=== PATIENT | female | born 1935 | race Caucasian/White ===

== ENCOUNTER → 2016-02-28 | Outpatient (CLI) | payer MEDICARE, MEDICAID ==
[~2016-02-28] MED LIST: ACYC800T PO; ALBUAER3 INH; AZIT250T3 PO; CALCTAB80 PO; CLOP75 PO; CYCL5TAB PO; ESTR42.5V PV; FERR325T PO; GABA300C5 PO; METO50TA11 PO; NORV5TAB PO; OMEP10CA PO; PANT40TA3 PO; PERI8.6T PO; PRED20 PO; PREV30CA36 PO; PROC2.5C PR; ROSU40 PO; SYMB160A INH; VENTAER INH
[2016-02-28 10:32] LABS: BASOPHIL % 0.6 % (0.0-2.0); EOSINOPHIL # 0.6 TH/MM3 (0-0.4); EOSINOPHIL % 8.2 % (0.0-4.0); HEMATOCRIT 30.6 % (35.0-46.0); HEMO FLAGS DIFF FINAL; LYMPH % 22.5 % (9.0-44.0); LYMPHOCYTE # 1.6 TH/MM3 (1.0-4.8); MEAN CELL VOLUME 93.3 FL (80.0-100.0); MEAN CORPUSCULAR HEMOGLOBIN 31.3 PG (27.0-34.0); MEAN CORPUSCULAR HGB CONC 33.5 % (32.0-36.0); MONO % 12.6 % (0.0-8.0); NEUT % 56.1 % (16.0-70.0); PLATELET COUNT 191 TH/MM3 (150-450); RED BLOOD COUNT 3.28 MIL/MM3 (4.00-5.30); RED CELL DISTRIBUTION WIDTH 15.2 % (11.6-17.2); WHITE BLOOD COUNT 7.2 TH/MM3 (4.0-11.0)
[2016-02-28 10:46] LABS: ALT (GPT) 21 U/L (10-53); ANION GAP 7 MEQ/L (5-15); AST (GOT) 15 U/L (15-37); BICARBONATE 29.1 MEQ/L (21.0-32.0); BLOOD UREA NITROGEN 20 MG/DL (7-18); CHLORIDE 101 MEQ/L (98-107); GLOMERULAR FILTRATION RATE 65 ML/MIN (>89); GLUCOSE,FASTING 82 MG/DL (74-99); POTASSIUM 4.2 MEQ/L (3.5-5.1); SODIUM (NA) 137 MEQ/L (136-145)
[2016-02-28 10:54] LABS: ALKALINE PHOSPHATASE 69 U/L (45-117); FREE T4 1.18 NG/DL (0.76-1.46); HDL CHOLESTEROL 64.7 MG/DL (40.0-60.0); INDIRECT BILIRUBIN 0.2 MG/DL (0.0-0.8); LDL CHOLESTEROL 83 MG/DL (0-99); TOTAL BILIRUBIN ADULT 0.3 MG/DL (0.2-1.0)
[2016-02-28 16:28] LABS: HEMOGLOBIN A1a 1.3 %; HEMOGLOBIN A1b 0.8 %; HEMOGLOBIN Ao 83.6 %; HEMOGLOBIN F 1.3 %; HEMOGLOBIN P3 5.8 %
== END ==
LOC: CLAB 10:07
PROVIDERS: ATTEND Internal Medicine Cardiovascular Disease
DX: E78.2 Mixed hyperlipidemia (principal); R07.2 Precordial pain; I10 Essential (primary) hypertension; R73.01 Impaired fasting glucose; Z79.899 Other long term (current) drug therapy
CPT/HCPCS: 36415; 80048; 80061; 80076; 83036; 84439; 84443; 84480; 85025

== ENCOUNTER → 2016-04-10 | Outpatient (CLI) | payer MEDICARE, OTHER ==
[2016-04-10 12:36] LABS: BLOOD, URINE NEG (NEG); GLUCOSE,URINE NEG (NEG); KETONE, URINE NEG (NEG); MUCUS URINE FEW /lpf (OCC); NITRITE,URINE NEG (NEG); PH, URINE 5.5 (5.0-8.5); SQUAMOUS EPITHELIAL CELL URINE <1 /hpf (0-5); URINE COLOR YELLOW (YELLW/STRAW)
== END ==
LOC: CLAB 11:22
PROVIDERS: ATTEND Family Medicine
DX: R35.0 Frequency of micturition (principal)
CPT/HCPCS: 81001

== ENCOUNTER → 2016-08-22 | Outpatient (CLI) | payer MEDICARE, OTHER ==
[~2016-08-22] MED LIST changes: -AZIT250T3 PO; -OMEP10CA PO; -PRED20 PO; -PREV30CA36 PO
[2016-08-22 09:56] LABS: AUTOMATED NEUTROPHIL # 5.7 TH/MM3 (1.8-7.7); BASOPHIL # 0.1 TH/MM3 (0-0.2); BASOPHIL % 0.8 % (0.0-2.0); EOSINOPHIL # 0.6 TH/MM3 (0-0.4); EOSINOPHIL % 6.6 % (0.0-4.0); HEMATOCRIT 31.6 % (35.0-46.0); HEMO FLAGS DIFF FINAL; LYMPH % 18.6 % (9.0-44.0); LYMPHOCYTE # 1.7 TH/MM3 (1.0-4.8); MEAN CELL VOLUME 93.7 FL (80.0-100.0); MEAN CORPUSCULAR HEMOGLOBIN 30.2 PG (27.0-34.0); MEAN CORPUSCULAR HGB CONC 32.3 % (32.0-36.0); MONO % 10.5 % (0.0-8.0); NEUT % 63.5 % (16.0-70.0); PLATELET COUNT 160 TH/MM3 (150-450); RED BLOOD COUNT 3.37 MIL/MM3 (4.00-5.30); RED CELL DISTRIBUTION WIDTH 15.3 % (11.6-17.2); WHITE BLOOD COUNT 9.1 TH/MM3 (4.0-11.0)
[2016-08-22 10:36] LABS: ANION GAP 6 MEQ/L (5-15); AST (GOT) 16 U/L (15-37); BICARBONATE 28.3 MEQ/L (21.0-32.0); BLOOD UREA NITROGEN 18 MG/DL (7-18); CHLORIDE 100 MEQ/L (98-107); GLOMERULAR FILTRATION RATE 60 ML/MIN (>89); GLUCOSE,FASTING 83 MG/DL (74-99); POTASSIUM 4.3 MEQ/L (3.5-5.1); SODIUM (NA) 134 MEQ/L (136-145)
[2016-08-22 10:45] LABS: ALKALINE PHOSPHATASE 60 U/L (45-117); ALT (GPT) 17 U/L (10-53); FREE T4 1.21 NG/DL (0.76-1.46); HDL CHOLESTEROL 55.6 MG/DL (40.0-60.0); INDIRECT BILIRUBIN 0.3 MG/DL (0.0-0.8); LDL CHOLESTEROL 74 MG/DL (0-99); TOTAL BILIRUBIN ADULT 0.4 MG/DL (0.2-1.0)
[2016-08-22 18:23] LABS: HEMOGLOBIN A1a 1.2 %; HEMOGLOBIN A1b 0.8 %; HEMOGLOBIN Ao 83.6 %; HEMOGLOBIN F 1.3 %; HEMOGLOBIN LA1C 1.9 %; HEMOGLOBIN P3 5.9 %
== END ==
LOC: CLAB 09:26
PROVIDERS: ATTEND Internal Medicine Cardiovascular Disease
DX: E78.2 Mixed hyperlipidemia (principal); I10 Essential (primary) hypertension; I65.22 Occlusion and stenosis of left carotid artery; R73.01 Impaired fasting glucose; Z79.899 Other long term (current) drug therapy
CPT/HCPCS: 36415; 80048; 80061; 80076; 83036; 84439; 84443; 84480; 85025

== ENCOUNTER → 2016-12-14 | Outpatient (CLI) | payer MEDICARE, OTHER ==
[~2016-12-14] MED LIST changes: -ACYC800T PO; -ESTR42.5V PV; +ESTR42.5V VAGINAL; +LACT10SO PO; +TRAZ50TA12 PO; -VENTAER INH
[2016-12-14 11:13] LABS: BASOPHIL # 0.1 TH/MM3 (0-0.2); BASOPHIL % 0.9 % (0.0-2.0); EOSINOPHIL # 0.6 TH/MM3 (0-0.4); HEMATOCRIT 31.5 % (35.0-46.0); HEMOGLOBIN 10.7 GM/DL (11.6-15.3); LYMPH % 19.6 % (9.0-44.0); LYMPHOCYTE # 1.6 TH/MM3 (1.0-4.8); MEAN CORPUSCULAR HEMOGLOBIN 32.4 PG (27.0-34.0); MEAN CORPUSCULAR HGB CONC 34.1 % (32.0-36.0); MEAN PLATELET VOLUME 8.8 FL (7.0-11.0); MONO % 10.4 % (0.0-8.0); MONOCYTE # 0.8 TH/MM3 (0-0.9); NEUT % 62.1 % (16.0-70.0); PLATELET COUNT 189 TH/MM3 (150-450); RED BLOOD COUNT 3.32 MIL/MM3 (4.00-5.30); RED CELL DISTRIBUTION WIDTH 15.4 % (11.6-17.2)
[2016-12-14 11:27] LABS: HEMOGLOBIN A1C 6.5 % (4.3-6.0)
[2016-12-14 11:41] LABS: AST (GOT) 22 U/L (15-37); BICARBONATE 27.5 MEQ/L (21.0-32.0); BLOOD UREA NITROGEN 17 MG/DL (7-18); CALCIUM 9.1 MG/DL (8.5-10.1); CHLORIDE 96 MEQ/L (98-107); CHOLESTEROL 177 MG/DL (120-200); CREATININE 0.92 MG/DL (0.50-1.00); DIRECT BILIRUBIN ADULT 0.1 MG/DL (0.0-0.2); GLOMERULAR FILTRATION RATE 59 ML/MIN (>89); GLUCOSE,FASTING 86 MG/DL (74-99); SODIUM (NA) 132 MEQ/L (136-145); TRIGLYCERIDES 107 MG/DL (42-150)
[2016-12-14 11:50] LABS: ALBUMIN 3.5 GM/DL (3.4-5.0); ALKALINE PHOSPHATASE 64 U/L (45-117); ALT (GPT) 26 U/L (10-53); CHOLESTEROL/ HDL RATIO 2.63 RATIO; FREE T4 1.15 NG/DL (0.76-1.46); HDL CHOLESTEROL 67.1 MG/DL (40.0-60.0); INDIRECT BILIRUBIN 0.2 MG/DL (0.0-0.8); LDL CHOLESTEROL 89 MG/DL (0-99); TOTAL BILIRUBIN ADULT 0.3 MG/DL (0.2-1.0); TOTAL PROTEIN 7.5 GM/DL (6.4-8.2)
== END ==
LOC: CLAB 10:23
PROVIDERS: ATTEND Internal Medicine Cardiovascular Disease
DX: I10 Essential (primary) hypertension (principal); I65.21 Occlusion and stenosis of right carotid artery; E78.2 Mixed hyperlipidemia; I34.0 Nonrheumatic mitral (valve) insufficiency; R73.01 Impaired fasting glucose; R06.02 Shortness of breath; R07.2 Precordial pain; Z79.899 Other long term (current) drug therapy
CPT/HCPCS: 36415; 80048; 80061; 80076; 83036; 84439; 84443; 84480; 85025

== ENCOUNTER 2017-02-18 11:21 | Inpatient (IN) | payer MEDICARE, MEDICAID ==
[~2017-02-18] VITALS: Ht 149.9 cm; Wt 59.2 kg
[2017-02-18] VITALS (11 sets, daily range): BP systolic 123–200; BP diastolic 61–82; PULSE 60–91; RESP 16–18; TEMP 97.3–98.6; O2SAT 96–99
[~2017-02-18 11:21] MED LIST changes: +METO1TAB9 PO; -METO50TA11 PO; -PANT40TA3 PO; -PERI8.6T PO; +RANI1TAB7 PO; +SENN1TAB PO
[2017-02-18] MEDS ORDERED: PLAV75TA29 PO (11:41)
[2017-02-18] MEDS ORDERED: ROSU20 PO (11:41)
[2017-02-18] MEDS ORDERED: hydrALAZINE HCL 20 MG/ML VIAL IV PUSH ONE (11:45)
--- NOTE | 2017-02-18 11:48 | PD ---
HPI Chief Complaint: Hypertension Time Seen by Provider: 11:35 Travel History International Travel<30 days: No Contact w/Intl Traveler<30days: No Traveled to known affect area: No History of Present Illness HPI 81-year-old female complains of elevated blood pressure and coughing congestion. Patient states that the coughing congestion started several days ago. Patient states the cough is intermittently productive. Patient denies any chest pain or shortness of breath. Patient denies any headache. Patient denies any fever chills. Patient denies abdominal pain. Patient denies any nausea vomiting diarrhea. Patient has history hypertension and has been taking amlodipine 2.5 mg daily and metoprolol 50 mg daily. Patient has history of carotid artery disease and has been taking Plavix. Patient has history of hyperlipidemia. Patient states that her systolic blood pressure at home has been in the 200 range. Patient has history of hyponatremia in the past. Patient also has history of GERD, allergic rhinitis, sleep apnea and CAD. Patient states that she has been drinking a lot of water lately. PFSH Past Medical History Hx Anticoagulant Therapy: Yes Arthritis: Yes Asthma: Yes (CHILD) Heart Rhythm Problems: No Cancer: No Cardiovascular Problems: Yes High Cholesterol: Yes Chest Pain: No Congestive Heart Failure: No COPD: No Cerebrovascular Accident: No Diabetes: No Diminished Hearing: No Endocrine: No Gastrointestinal Disorders: No GERD: Yes Genitourinary: No Headaches: No Hepatitis: No Hiatal Hernia: Yes Hypertension: Yes Immune Disorder: No Implanted Vascular Access Dvce: No Musculoskeletal: Yes (OA LOWER BACK) Neurologic: No Psychiatric: No Reproductive: No Respiratory: Yes (ASTHMA) Migraines: No Seizures: No Sleep Apnea: Yes Thyroid Disease: No Ulcer: No Menopausal: Yes : 2 Para: 1 : 1 Ovarian Cysts: Yes (REMOVED APPROX 30 YRS AGO) Past Surgical History Abdominal Surgery: No AICD: No Cardiac Surgery: No Ear Surgery: Yes (CATARACT JANET.) Endocrine Surgery: No Eye Surgery: Yes Genitourinary Surgery: No Gynecologic Surgery: Yes (CYCT REMOVED FROM OVARY) Joint Replacement: No Neurologic Surgery: No Oral Surgery: No Pacemaker: No Thoracic Surgery: No Tonsillectomy: Yes Other Surgery: Yes (CYST REMOVED) Social History Alcohol Use: Yes (OCC) Tobacco Use: No (95) Substance Use: No Allergies-Medications (Allergen,Severity, Reaction): Coded Allergies: No Known Allergies (Verified Adverse Reaction, Unknown, 02/18/17) Reported Meds & Prescriptions Reported Meds & Active Scripts Active Metoprolol Succinate ER 24 HR (Metoprolol Succinate) 50 Mg Tab 50 Mg PO DAILY Norvasc (Amlodipine Besylate) 5 Mg Tab 2.5 Mg PO DAILY Reported Crestor (Rosuvastatin Calcium) 20 Mg Tab 20 Mg PO DAILY Plavix (Clopidogrel Bisulfate) 75 Mg Tab 75 Mg PO DAILY Review of Systems General / Constitutional: No: Fever Eyes: No: Visual changes HENT: No: Headaches Cardiovascular: No: Chest Pain or Discomfort Respiratory: Positive: Cough, No: Shortness of Breath Gastrointestinal: No: Abdominal Pain Genitourinary: No: Dysuria Musculoskeletal: No: Pain Skin: No Rash Neurologic: No: Weakness Psychiatric: No: Depression Endocrine: No: Polydipsia Hematologic/Lymphatic: No: Easy Bruising Physical Exam Narrative GENERAL: Well-nourished, well-developed patient. SKIN: Focused skin assessment warm/dry. HEAD: Normocephalic. EYES: No scleral icterus. No injection or drainage. NECK: Supple, trachea midline. No JVD or lymphadenopathy. CARDIOVASCULAR: Regular rate and rhythm without murmurs, gallops, or rubs. RESPIRATORY: Breath sounds equal bilaterally. No accessory muscle use. Patient has mild to moderate expiratory wheezes bilaterally. Few rhonchi at the bases. GASTROINTESTINAL: Abdomen soft, non-tender, nondistended. MUSCULOSKELETAL: No cyanosis, or edema. BACK: Nontender without obvious deformity. No CVA tenderness. Neurologic exam normal. Data Data Last Documented VS Vital Signs Date Time Temp Pulse Resp B/P (MAP) Pulse Ox O2 Delivery O2 Flow Rate FiO2 02/18/17 13:56 79 18 154/61 (92) 97 Room Air 02/18/17 13:53 2.00 02/18/17 11:23 98.6 Orders Orders Electrocardiogram (02/18/17 ) Electrocardiogram (02/18/17 11:44) Complete Blood Count With Diff (02/18/17 11:44) Basic Metabolic Panel (Bmp) (02/18/17 11:44) Influenzae A/B Antigen (02/18/17 11:44) Chest, Single Ap (02/18/17 11:44) Iv Access Insert/Monitor (02/18/17 11:44) Ecg Monitoring (02/18/17 11:44) Oximetry (02/18/17 11:44) Hydralazine Inj (Apresoline Inj) (02/18/17 11:45) Thyroid Stimulating Hormone (02/18/17 12:59) Osmolality, Urine (02/18/17 12:59) Osmolality,Serum (02/18/17 12:59) Sodium Chlorid 0.9% 500 Ml Inj (Ns 500 M (02/18/17 13:00) Sodium Chlor 0.9% 1000 Ml Inj (Ns 1000 M (02/18/17 13:00) Albuterol-Ipratropium Neb (Duoneb Neb) (02/18/17 14:00) Albuterol-Ipratropium Neb (Duoneb Neb) (02/18/17 14:00) Labs Laboratory Tests Test 02/18/17 11:56 02/18/17 13:29 White Blood Count 8.8 TH/MM3 Red Blood Count 3.33 MIL/MM3 Hemoglobin 10.7 GM/DL Hematocrit 30.6 % Mean Corpuscular Volume 91.7 FL Mean Corpuscular Hemoglobin 32.0 PG Mean Corpuscular Hemoglobin Concent 34.9 % Red Cell Distribution Width 14.7 % Platelet Count 204 TH/MM3 Mean Platelet Volume 8.9 FL Neutrophils (%) (Auto) 72.2 % Lymphocytes (%) (Auto) 15.1 % Monocytes (%) (Auto) 11.0 % Eosinophils (%) (Auto) 1.4 % Basophils (%) (Auto) 0.3 % Neutrophils # (Auto) 6.4 TH/MM3 Lymphocytes # (Auto) 1.3 TH/MM3 Monocytes # (Auto) 1.0 TH/MM3 Eosinophils # (Auto) 0.1 TH/MM3 Basophils # (Auto) 0.0 TH/MM3 CBC Comment DIFF FINAL Differential Comment Blood Urea Nitrogen 15 MG/DL Creatinine 0.62 MG/DL Random Glucose 125 MG/DL Calcium Level 8.3 MG/DL Sodium Level 116 MEQ/L Potassium Level 3.8 MEQ/L Chloride Level 82 MEQ/L Carbon Dioxide Level 24.3 MEQ/L Anion Gap 10 MEQ/L Estimat Glomerular Filtration Rate 93 ML/MIN Serum Osmolality 247 MOSM/KG Thyroid Stimulating Hormone 3rd Gen 1.570 uIU/ML MDM Medical Decision Making Medical Screen Exam Complete: Yes Emergency Medical Condition: Yes Interpretation(s) Last Impressions Chest X-Ray 02/18/17 1144 Signed Impressions: Service Date/Time: Saturday, February 18, 2017 12:13 - CONCLUSION: 1. No acute cardiopulmonary disease. 2. Degenerative changes and scoliosis of the thoracolumbar spine. Marquis Mcghee MD 12:56 PM. CBC with hemoglobin 10.7 hematocrit 30.6. 72 neutrophil. Sodium 116. Potassium 3.8. Chloride 82. Bicarbonate 24.3. Differential Diagnosis Differential diagnosis including URI, bronchitis, pneumonia, uncontrolled hypertension, hypertensive urgency, hypertensive crisis. Narrative Course 81-year-old female with coughing congestion and elevated blood pressure. History hypertension. Hydralazine 10 mg IV given. Normal saline solution 500 cc IV bolus. Normal saline solution 100 cc an hour. Patient's wheezing was after arrival. Albuterol with Atrovent unit dose treatment 2. Diagnosis Primary Impression: Hyponatremia Additional Impressions: Uncontrolled hypertension Reactive airway disease Qualified Codes: J45.40 - Moderate persistent asthma, uncomplicated Admitting Information Admitting Physician Requests: Admit Juan Alberto Sinha MD Feb 18, 2017 11:48
[2017-02-18 12:17] LABS: AUTOMATED NEUTROPHIL # 6.4 TH/MM3 (1.8-7.7); BASOPHIL % 0.3 % (0.0-2.0); EOSINOPHIL # 0.1 TH/MM3 (0-0.4); EOSINOPHIL % 1.4 % (0.0-4.0); HEMATOCRIT 30.6 % (35.0-46.0); HEMOGLOBIN 10.7 GM/DL (11.6-15.3); LYMPH % 15.1 % (9.0-44.0); LYMPHOCYTE # 1.3 TH/MM3 (1.0-4.8); MEAN CELL VOLUME 91.7 FL (80.0-100.0); MEAN CORPUSCULAR HGB CONC 34.9 % (32.0-36.0); MEAN PLATELET VOLUME 8.9 FL (7.0-11.0); NEUT % 72.2 % (16.0-70.0); PLATELET COUNT 204 TH/MM3 (150-450); RED BLOOD COUNT 3.33 MIL/MM3 (4.00-5.30); RED CELL DISTRIBUTION WIDTH 14.7 % (11.6-17.2); WHITE BLOOD COUNT 8.8 TH/MM3 (4.0-11.0)
--- NOTE | 2017-02-18 12:46 | RADRPT ---
EXAM DATE/TIME: 02/18/2017 12:13 [facility] COMPARISON: CHEST SINGLE AP, April 14, 2014, 14:05. INDICATIONS : Cough MEDICAL HISTORY : Hypertension. Asthma, Sleep Apnea SURGICAL HISTORY : Tonsillectomy. ENCOUNTER: Initial ACUITY: 1 day PAIN SCORE: 0/10 LOCATION: Bilateral chest FINDINGS: A single view of the chest demonstrates the lungs to be symmetrically aerated without evidence of mas s, infiltrate or effusion. The cardiomediastinal contours are unremarkable. Degenerative changes and scoliosis of the thoracolumbar spine are noted. CONCLUSION: 1. No acute cardiopulmonary disease. 2. Degenerative changes and scoliosis of the thoracolumbar spine. Marquis Mcghee MD on February 18, 2017 at 12:43 Board Certified Radiologist. This report was verified electronically.
[2017-02-18 12:52] LABS: BICARBONATE 24.3 MEQ/L (21.0-32.0); CALCIUM 8.3 MG/DL (8.5-10.1); CREATININE 0.62 MG/DL (0.50-1.00)
[2017-02-18] MEDS ORDERED: SODIUM CHLORID 0.9% 500 ML INJ 500 ML IV ONE (13:00)
[2017-02-18] MEDS ORDERED: SODIUM CHLOR 0.9% 1000 ML INJ 1,000 ML IV SCH (13:00)
[2017-02-18] MEDS ORDERED: RESP: ALBUTEROL 2.5 MG/IPRATROPIUM 0.5 MG NEB (SCH) INH ONE ×3 (14:00→15:30)
[2017-02-18] MEDS ORDERED: methylPREDNISolone SOD SUCC 125 MG/2 ML VIAL IV PUSH ONE (15:30)
--- NOTE | 2017-02-18 17:07 | HHI.HP ---
[facility] Service Family Medicine Primary Care Physician Carrie Crocker , Gilbert Mims MD Admission Diagnosis severe hyponatremia. Acute exacerbation of asthma Diagnoses: International Travel<30 Days: No Contact w/Intl Traveler<30days: No Known Affected Area: No History of Present Illness Patient is a 81-year-old female with a past medical history significant for HTN , GERD, sleep apnea and CAD who presents today for high blood pressure. She took her BP at home and it was 199/88. She denies any headache or blurry vision during this episode. Denies any abdominal pain or pain elsewhere. She has noticed less urine output recently but she cannot say for how long. She has felt excessively thirsty over the last few weeks, but she has not been drinking more water than usual. She has occasionally had N/V, and vomited this morning after eating 2 eggs. She is not currently nauseas. She denies any recent mood changes or depression. Denies fever/chills. She has had continuous problems with constipation. On ROS; pt admits to SOB and cough, fatigue and dizziness for the last few weeks. She has noticed that she is moving very slow. She had the respiratory sx when she saw her PCP on 01/31. She was given Albuterol and that helped her. She has been using the albuterol every other day for sx. She also sees a fire protection designer for unknown lung disease and she last saw him 1 year ago. Review of Systems Constitutional: DENIES: Weight loss Eyes: DENIES: Vision loss, Double Vision Ears, nose, mouth, throat: DENIES: Throat pain Respiratory: COMPLAINS OF: Cough, Snoring (uses CPAP), Wheezing, Sputum production (has been using mucinex), Shortness of breath (happens every other day, uses albuterol inhaler), DENIES: Hemoptysis Cardiovascular: DENIES: Chest pain, Syncope Gastrointestinal: DENIES: Black stools, Bloody stools Genitourinary: DENIES: Urinary frequency, Urinary incontinence Musculoskeletal: DENIES: Joint Swelling, Back pain Integumentary: DENIES: Pruritus, Rash Hematologic/lymphatic: DENIES: Bruising Immunologic/allergic: DENIES: Urticaria Neurologic: COMPLAINS OF: Headache (right now yes), Tremor (mild tremor constantly, it is new), DENIES: Localized weakness, Paresthesias Psychiatric: DENIES: Mood changes, Depression Past Family Social History Past Medical History PMHx: HTN GERD allergic rhinitis sleep apnea- CPAP CAD Obstetric History: 1 , 1 Menarche at age 11 Menopause in 50's HRT with Premarin 1970's Never abnormal pap smear Allergies: None Family History: Mother: healthy, of abdominal aneurism at age 79 Father: stroke Brothers: cardiac disease, tongue cancer Sister: Traumatic brain injury Social History: Tobacco: quit 40 years ago, smoked 10 years 1/2ppd Alcohol: couple wine glasses per day Illicit drugs: None Lives alone in an apartment. Good support system of friends and family around. Son is involved and nieces. Other Specialists: Dr. Bailon- [facility] [employer] (last seen 1 year ago) Health Maintenance: Mammogram 2015, normal Colonoscopy 2012, normal Bone Density Scan: 2013 Osteopenia HgA1c 6.1 Past Surgical History Surgical History: Ovarian cyst removal 1979 Face lift 1984 Cataract Surgery 2014 Allergies: Coded Allergies: No Known Allergies (Verified Adverse Reaction, Unknown, 02/18/17) Physical Exam Vital Signs Vital Signs Date Time Temp Pulse Resp B/P (MAP) Pulse Ox O2 Delivery O2 Flow Rate FiO2 02/18/17 15:33 85 18 155/67 (96) 99 Nasal Cannula 2.00 02/18/17 14:22 99 Nasal Cannula 3.00 02/18/17 13:56 79 18 154/61 (92) 97 Room Air 02/18/17 13:53 82 18 154/61 (92) 97 Nasal Cannula 2.00 02/18/17 12:50 69 18 123/71 (88) 97 Nasal Cannula 2.00 02/18/17 12:17 67 18 97 Nasal Cannula 2.00 02/18/17 12:05 61 18 161/82 (108) 97 Nasal Cannula 2.00 02/18/17 11:54 97 Nasal Cannula 2.00 02/18/17 11:35 62 18 168/72 (104) 96 Room Air 02/18/17 11:23 98.6 60 16 200/82 (121) 96 Physical Exam GENERAL: This is a well-nourished, well-developed patient, in no apparent distress. SKIN: No rashes, ecchymoses or lesions. Cool and dry HEAD: Atraumatic. Normocephalic. No temporal or scalp tenderness. EYES: Pupils equal round and reactive. Extraocular motions intact. No scleral icterus. No injection or drainage. ENT: Nose without bleeding, purulent drainage or septal hematoma. Throat without erythema, tonsillar hypertrophy or exudate. Uvula midline. Airway patent. NECK: Trachea midline. No JVD or lymphadenopathy. Supple, nontender, no meningeal signs. CARDIOVASCULAR: Regular rate and rhythm without murmurs, gallops, or rubs. RESPIRATORY: Clear to auscultation. wheezing ascultated anteriorly, Breath sounds equal bilaterally, expiratory wheezing equal bilaterally, coarse rhonchi equal bilaterally. No wheezes, rales, or rhonchi. GASTROINTESTINAL: Abdomen soft, non-tender, nondistended. No hepato-splenomegaly , or palpable masses. No guarding. MUSCULOSKELETAL: Extremities without clubbing, cyanosis, or edema. No joint tenderness, effusion, or edema noted. No calf tenderness. Negative Homans sign bilaterally. NEUROLOGICAL: Awake and alert. Cranial nerves II through XII intact. Motor and sensory grossly within normal limits. Five out of 5 muscle strength in all muscle groups. Normal speech. Laboratory Laboratory Tests Test 02/18/17 11:56 02/18/17 13:29 White Blood Count 8.8 Red Blood Count 3.33 Hemoglobin 10.7 Hematocrit 30.6 Mean Corpuscular Volume 91.7 Mean Corpuscular Hemoglobin 32.0 Mean Corpuscular Hemoglobin Concent 34.9 Red Cell Distribution Width 14.7 Platelet Count 204 Mean Platelet Volume 8.9 Neutrophils (%) (Auto) 72.2 Lymphocytes (%) (Auto) 15.1 Monocytes (%) (Auto) 11.0 Eosinophils (%) (Auto) 1.4 Basophils (%) (Auto) 0.3 Neutrophils # (Auto) 6.4 Lymphocytes # (Auto) 1.3 Monocytes # (Auto) 1.0 Eosinophils # (Auto) 0.1 Basophils # (Auto) 0.0 CBC Comment DIFF FINAL Differential Comment Blood Urea Nitrogen 15 Creatinine 0.62 Random Glucose 125 Calcium Level 8.3 Sodium Level 116 Potassium Level 3.8 Chloride Level 82 Carbon Dioxide Level 24.3 Anion Gap 10 Estimat Glomerular Filtration Rate 93 Serum Osmolality 247 Thyroid Stimulating Hormone 3rd Gen 1.570 Date/Time Source Procedure Growth Status 02/18/17 12:00 Nasal Washing Influenza Types A,B Antigen (ELIO) - Final NEGATIVE FOR FLU A AND B ANTIGEN.... Complete Result Diagram: 02/18/17 1156 02/18/17 1156 Septic Shock Reassessment Septic shock perfusion: reassessment completed Caprini VTE Risk Assessment Caprini VTE Risk Assessment: No/Low Risk (score <= 1) Caprini Risk Assessment Model Point Value = 1 Point Value = 2 Point Value = 3 Point Value = 5 Age 41-60 Minor surgery BMI > 25 kg/m2 Swollen legs Varicose veins or History of unexplained or recurrent spontaneous Oral contraceptives or hormone replacement Sepsis (< 1 month) Serious lung disease, including pneumonia (< 1 month) Abnormal pulmonary function Acute myocardial infarction Congestive heart failure (< 1 month) History of inflammatory bowel disease Medical patient at bed rest Age 61-74 Arthroscopic surgery Major open surgery (> 45 min) Laparoscopic surgery (> 45 min) Malignancy Confined to bed (> 72 hours) Immobilizing plaster cast Central venous access Age >= 75 History of VTE Family history of VTE Factor V Leiden Prothrombin [id number] Lupus anticoagulant Anticardiolipin antibodies Elevated serum homocysteine Heparin-induced thrombocytopenia Other congenital or acquired thrombophilia Stroke (< 1 month) Elective arthroplasty Hip, pelvis, or leg fracture Acute spinal cord injury (< 1 month) Prophylaxis Regimen Total Risk Factor Score Risk Level Prophylaxis Regimen 0-1 Low Early ambulation 2 Moderate Order ONE of the following: *Sequential Compression Device (SCD) *Heparin 5000 units SQ BID 3-4 Higher Order ONE of the following medications: *Heparin 5000 units SQ TID *Enoxaparin/Lovenox 40 mg SQ daily (WT < 150 kg, CrCl > 30 mL/min) *Enoxaparin/Lovenox 30 mg SQ daily (WT < 150 kg, CrCl > 10-29 mL/min) *Enoxaparin/Lovenox 30 mg SQ BID (WT < 150 kg, CrCl > 30 mL/min) AND/OR *Sequential Compression Device (SCD) 5 or more Highest Order ONE of the following medications: *Heparin 5000 units SQ TID (Preferred with Epidurals) *Enoxaparin/Lovenox 40 mg SQ daily (WT < 150 kg, CrCl > 30 mL/min) *Enoxaparin/Lovenox 30 mg SQ daily (WT < 150 kg, CrCl > 10-29 mL/min) *Enoxaparin/Lovenox 30 mg SQ BID (WT < 150 kg, CrCl > 30 mL/min) AND *Sequential Compression Device (SCD) Assessment and Plan Assessment and Plan 81 y/o F, pmhx of unknown lung disease, HTN, GERD, and CAD presents with fatigue, cough, shortness of breath, nausea/vomiting for 2 weeks presents with uncontrolled HTN, wheezing, and hyponatremia Code Status Full code Problem List: (1) Uncontrolled hypertension ICD Codes: I10 - Essential (primary) hypertension Status: Acute Plan: Status post hydralazine 10 mg IV push in the ED Continue home medication metoprolol 50 mg daily Continue hydralazine 10 mg IV push when necessary blood pressure 180/100 Increase home medication amlodipine to 10 mg daily (2) Reactive airway disease ICD Codes: J45.909 - Unspecified asthma, uncomplicated Status: Acute Plan: Continue DuoNeb treatments every 4 hours PRN albuterol when necessary Solu-Medrol 60 mg every 6h IV push CXR: no acute disease CTA: no PE, diffuse interstitial lung disease with groundglass opacity may present an early congestion, and no consolidations, mild cardiomegaly - Follow-up with pulmonology consult based on CTA results (3) Hyponatremia ICD Codes: E87.1 - Hyponatremia Status: Acute Plan: Sodium on admission 116, likely chronic hyponatremia Follow-up sodium level every 2-4 hours Fluid restrict to 800 mL Status post 0.5 L normal saline bolus in ED, followed by 100 mL per hour normal saline replacement therapy 1 Will add 3% normal saline at slow IV infusion rate for decreasing sodium levels (4) fen/ppx Status: Acute Plan: Fluids: Fluid restrict to 800 mL Electrolytes: Follow-up BMP every 4 hours and replete as necessary Nutrition: Regular diet, with fluid restriction as above DVT prophylaxis: Lovenox Physician Certification 2 Midnight Certification Type: Admission for Inpatient Services Order for Inpatient Services The services are ordered in accordance with Medicare regulations or non- Medicare payer requirements, as applicable. In the case of services not specified as inpatient-only, they are appropriately provided as inpatient services in accordance with the 2-midnight benchmark. Estimated LOS (days): 2 days is the estimated time the patient will need to remain in the hospital, assuming treatment plan goals are met and no additional complications. Post-Hospital Plan: Home Problem Qualifiers (1) Reactive airway disease: Qualified Codes: J45.40 - Moderate persistent asthma, uncomplicated Adelia Howell MD R2 Feb 18, 2017 17:06
[2017-02-18] MEDS ORDERED: SENNOSIDES 8.6 MG TAB PO PRN (17:30)
[2017-02-18] MEDS ORDERED: ONDANSETRON HCL 4 MG/2 ML VIAL IVP PRN (17:30)
[2017-02-18] MEDS ORDERED: LACTULOSE SYRUP 20 GM/30 ML CUP PO PRN (17:30)
[2017-02-18] MEDS ORDERED: ACETAMINOPHEN 325 MG TAB PO PRN (17:30)
[2017-02-18] MEDS ORDERED: BISACODYL 10 MG SUPP RECTAL PRN (17:30)
[2017-02-18] MEDS ORDERED: SODIUM CHLORIDE 0.9% FLUSH 10 ML FLUSH IV FLUSH PRN (17:30)
[2017-02-18] MEDS ORDERED: ENOXAPARIN SODIUM 40 MG/0.4 ML SYRINGE SQ SCH (17:30)
[2017-02-18] MEDS ORDERED: NALOXONE HCL 0.4 MG/ML AMP IV PUSH PRN (17:30)
[2017-02-18] MEDS ORDERED: ZOLPIDEM TARTRATE 5 MG TAB PO PRN (17:30)
[2017-02-18] MEDS ORDERED: hydrALAZINE HCL 20 MG/ML VIAL IV PUSH PRN (18:15)
[2017-02-18] MEDS ORDERED: IOHEXOL 350 MG/ML 10 ML VIAL (for RAD DIAG) IVCONTRAST ONE (18:39)
--- NOTE | 2017-02-18 18:50 | RADRPT ---
EXAM DATE/TIME: 02/18/2017 18:24 [facility] COMPARISON: No previous studies available for comparison. INDICATIONS : Severe hyponatremia with shortness of breath. Evaluate for emboli. IV CONTRAST: 75 cc Omnipaque 350 (iohexol) IV RADIATION DOSE: 8.66 CTDIvol (mGy) MEDICAL HISTORY : Cardiovascular disease. Hypertension. Hypercholesterolemia.Asthma SURGICAL HISTORY : None. ENCOUNTER: Initial ACUITY: 1 day PAIN SCALE: 0/10 LOCATION: Bilateral chest TECHNIQUE: Volumetric scanning of the chest was performed using a pulmonary embolism protocol MIP images were re constructed. Using automated exposure control and adjustment of the mA and/or kV according to patien t size, radiation dose was kept as low as reasonably achievable to obtain optimal diagnostic quality images. DICOM format image data is available electronically for review and comparison. Follow-up recommendations for detected pulmonary nodules are based at a minimum on nodule size and pa tient risk factors according to Fleischner Society Guidelines. FINDINGS: PULMONARY ARTERIES: No filling defects are seen in the pulmonary arteries through the segmental level. LUNGS: Diffuse interstitial prominence and mild diffuse groundglass opacity. PLEURAE: There is no pleural thickening or pleural effusion. MEDIASTINUM: The heart is enlarged in demonstrates coronary calcification. There is good visualization of the grea t vessels of the middle mediastinum. No evidence of mediastinal or hilar adenopathy/mass. MUSCULOSKELETAL: Within normal limits for patient age. MISCELLANEOUS: The visualized upper abdominal organs demonstrate no acute abnormality. CONCLUSION: 1. No evidence of acute pulmonary embolism. 2. Diffuse interstitial lung disease with mild groundglass opacity. This may are present early conges tion. 3. No evidence of consolidating airspace disease. 4. Mild cardiomegaly with coronary artery calcification. Bk Kelly MD on February 18, 2017 at 18:44 Board Certified Radiologist. This report was verified electronically.
[2017-02-18] MEDS ORDERED: RESP: ALBUTEROL 2.5 MG/3 ML NEB (SCH) NEB (20:00)
[2017-02-18] MEDS: DOCUSATE SODIUM 50 MG/SENNA 8.6 MG TAB PO SCH (22:07)
[2017-02-18] MEDS: ENOXAPARIN SODIUM 40 MG/0.4 ML SYRINGE SQ SCH (22:08)
[2017-02-18] MEDS: SODIUM CHLORIDE 0.9% FLUSH 10 ML FLUSH IV FLUSH SCH (22:09)
[2017-02-18 22:58] LABS: CALCIUM 7.9 MG/DL (8.5-10.1); CREATININE 0.73 MG/DL (0.50-1.00)
[2017-02-18] MEDS ORDERED: 3% SALINE INJ 100 ML IV ONE (23:30)
[2017-02-18 23:43] LABS: BICARBONATE 18.6 MEQ/L (21.0-32.0); CREATININE 0.64 MG/DL (0.50-1.00)
[2017-02-19] VITALS (11 sets, daily range): BP systolic 112–139; BP diastolic 52–76; PULSE 62–107; RESP 16–20; TEMP 95.9–98; O2SAT 97–100
[2017-02-19] MEDS: RESP: ALBUTEROL 2.5 MG/IPRATROPIUM 0.5 MG NEB (SCH) NEB ×6 (00:42→21:35)
[2017-02-19 04:48] LABS: AUTOMATED NEUTROPHIL # 3.2 TH/MM3 (1.8-7.7); BASOPHIL % 0.1 % (0.0-2.0); HEMATOCRIT 25.8 % (35.0-46.0); HEMOGLOBIN 8.8 GM/DL (11.6-15.3); LYMPH % 21.4 % (9.0-44.0); LYMPHOCYTE # 0.9 TH/MM3 (1.0-4.8); MEAN CELL VOLUME 91.6 FL (80.0-100.0); MEAN CORPUSCULAR HEMOGLOBIN 31.5 PG (27.0-34.0); MEAN CORPUSCULAR HGB CONC 34.3 % (32.0-36.0); MEAN PLATELET VOLUME 8.7 FL (7.0-11.0); MONO % 2.3 % (0.0-8.0); MONOCYTE # 0.1 TH/MM3 (0-0.9); NEUT % 76.2 % (16.0-70.0); PLATELET COUNT 160 TH/MM3 (150-450); RED BLOOD COUNT 2.81 MIL/MM3 (4.00-5.30); RED CELL DISTRIBUTION WIDTH 14.4 % (11.6-17.2); WHITE BLOOD COUNT 4.2 TH/MM3 (4.0-11.0)
[2017-02-19 05:21] LABS: ALBUMIN 2.9 GM/DL (3.4-5.0); BICARBONATE 23.6 MEQ/L (21.0-32.0); CALCIUM 7.6 MG/DL (8.5-10.1); CREATININE 0.69 MG/DL (0.50-1.00); DIRECT BILIRUBIN ADULT 0.1 MG/DL (0.0-0.2); INDIRECT BILIRUBIN 0.2 MG/DL (0.0-0.8); TOTAL BILIRUBIN ADULT 0.3 MG/DL (0.2-1.0); TOTAL PROTEIN 6.4 GM/DL (6.4-8.2)
[2017-02-19] MEDS ORDERED: amLODIPine BESYLATE 5 MG TAB PO SCH (09:00)
[2017-02-19] MEDS: METOPROLOL SUCCINATE 50 MG EXTENDED RELEASE TAB PO SCH (10:48)
[2017-02-19] MEDS: SODIUM CHLORIDE 0.9% FLUSH 10 ML FLUSH IV FLUSH SCH ×2 (10:49→22:02)
[2017-02-19] MEDS: DOCUSATE SODIUM 50 MG/SENNA 8.6 MG TAB PO SCH ×2 (10:49→22:02)
[2017-02-19 12:15] LABS: CALCIUM 7.8 MG/DL (8.5-10.1); CREATININE 0.77 MG/DL (0.50-1.00)
[2017-02-19 12:43] LABS: BILIRUBIN, URINE NEG (NEG); BLOOD, URINE NEG (NEG); GLUCOSE,URINE 70 mg/dL (NEG); KETONE, URINE NEG (NEG); NITRITE,URINE NEG (NEG); SQUAMOUS EPITHELIAL CELL URINE <1 /hpf (0-5); URINE COLOR LIGHT-YELLOW (YELLW/STRAW); URINE LEUKOCYTE ESTERASE NEG (NEG)
[2017-02-19] MEDS ORDERED: ENALAPRILAT 1.25 MG/ML VIAL IV PUSH PRN (13:45)
--- NOTE | 2017-02-19 13:59 | HHI.FPPN ---
Subjective Remarks No acute events overnight. Vital signs unremarkable. This morning patient reports an improvement in her respiratory status and cough. Denies shortness of breath, chest pain. Prior to onset events today, patient denies excessive drinking of fluids beyond 1 day. She also denies excessive alcohol use. Reports drinking 2 glasses of wine 2-3 glasses a week. Patient also denies any history of respiratory issues beyond asthma and emphysema. Remote history of smoking half pack per day but quit 30 years ago. (Helen Reyes MD, R3) Objective Vitals Vital Signs Date Time Temp Pulse Resp B/P (MAP) Pulse Ox O2 Delivery O2 Flow Rate FiO2 02/19/17 12:00 96.6 62 20 122/58 (79) 100 02/19/17 10:52 99 Nasal Cannula 2.00 02/19/17 08:00 96.7 83 20 139/63 (88) 99 02/19/17 07:48 99 Nasal Cannula 2.00 02/19/17 03:40 98.0 89 16 135/61 (85) 98 02/19/17 00:47 98 Nasal Cannula 2.00 02/19/17 00:00 97.9 100 17 112/65 (81) 97 02/18/17 21:00 Nasal Cannula 2.00 02/18/17 19:30 97.3 91 18 172/72 (105) 97 02/18/17 18:28 02/18/17 17:02 83 18 145/65 (91) 97 Nasal Cannula 2.00 02/18/17 15:33 85 18 155/67 (96) 99 Nasal Cannula 2.00 02/18/17 14:22 99 Nasal Cannula 3.00 02/18/17 13:56 79 18 154/61 (92) 97 Room Air 02/18/17 13:53 82 18 154/61 (92) 97 Nasal Cannula 2.00 I/O 02/18/17 02/18/17 02/18/17 02/19/17 02/19/17 02/19/17 07:00 15:00 23:00 07:00 15:00 23:00 Intake Total 480 ml 240 ml Balance 480 ml 240 ml Intake Oral 480 ml 240 ml # Voids 2 1 (Helen Reyes MD, R3) Result Diagram: 02/19/17 0417 02/19/17 1042 Objective Remarks GEN: Well-developed, well-nourished patient. No acute distress. CV: Regular rate and rhythm without obvious murmurs LUNGS: Coarse breath sounds bilaterally in all lung woo. No accessory muscle use or respiratory distress. Able to speak in complete sentences. GI: Nondistended NEURO/PSYCH: Awake, alert. Appropriate insight and judgment. Normal speech (Helen Reyes MD, R3) A/P Assessment and Plan 81-year-old female with history of emphysema, CAD, HTN. Admitted for hyponatremia and hypertension Discharge Planning 2-3days pending improvement in respiratory status and hyponatremia. sdw Dr. Willis (Helen Reyes MD, R3) Attending Attestation THIS CASE WAS DISCUSSED WITH THE RESIDENT PHYSICIAN DR Alex DOYLE.PATIENT SEEN AND EXAMINED, I HAVE REVIEWED THE RECORD AND AGREE WITH THE ABOVE NOTE AND PLAN OF CARE WAS DISCUSSED. I HAVE AUTHORIZED THE ORDER SET (Po Willis MD) Problem List: (1) Hyponatremia ICD Codes: E87.1 - Hyponatremia Status: Acute Plan: Hyponatremia of 116 found on admission. Likely chronic in nature. No clear etiology at this time. No obvious medication effects or excessive alcohol use. Evaluation for SIADH performed but unremarkable thus far. Slight improvement with fluid restriction. -urine sodium <40 -serial BMP q6hrs * goal: No more than 7meq Na increase in 24hrs. -continue with fluid restriction (800ml/day) -will start Normal saline to assist with treatment as well (2) Emphysema lung ICD Codes: J43.9 - Emphysema, unspecified Plan: Reported hx of emphysema which was why pt reports being seen by Dr. Kurtz. Improved respiratory status since admission. CTA changes may be related to Emphysema. Low concern for infectious etiology at this time. -Pulmonary consulted, cancelled for now -PFTs ordered -incentive spirometry Medications: * Albuterol and duoneb * Solumedrol 40mg BID 02/19 only * Oral Prednisone 40mg daily to start 02/20/17 Imaging: * CXR: no acute disease * CTA: no PE, diffuse interstitial lung disease with ground glass opacity may present an early congestion, and no consolidations, mild cardiomegaly (3) Uncontrolled hypertension ICD Codes: I10 - Essential (primary) hypertension Status: Resolved Plan: Hx of HTN. Improved BP since admission. Consider possible aldosterone adenoma as etiologiolgy of uncontrolled HTN -urine sodium and UA reassuring. -plasma renin and AM cortisol ordered Medications: * amlodipine 10mg daily * metoprolol 50mg daily * s/p hydralazine 10mg IV x1 in ED (4) CAD (coronary artery disease) ICD Codes: I25.10 - Atherosclerotic heart disease of [place] coronary artery without angina pectoris Status: Chronic Plan: HX of CAD -resume home statin and plavix (5) fen/ppx Status: Acute Plan: Fluids: NS at 75mls/hr Electrolytes: see plan above Nutrition: Regular diet, with fluid restriction as above DVT prophylaxis: Lovenox GI PPX: ranitidine due to steroid use (Helen Reyes MD, R3) Helen Reyes MD, R3 Feb 19, 2017 13:59 Po Willis MD Feb 20, 2017 09:54
[2017-02-19] MEDS ORDERED: methylPREDNISolone SOD SUCC 40 MG/1 ML VIAL IV PUSH ONE (14:00)
[2017-02-19] MEDS ORDERED: POTASSIUM CHLORIDE 20 MEQ CONTROLLED RELEASE TAB PO ONE (14:00)
[2017-02-19] MEDS ORDERED: TRAZ50TA12 PO (14:08)
[2017-02-19] MEDS ORDERED: RANI150T PO (14:08)
[2017-02-19] MEDS ORDERED: SYMB160A INH (14:08)
[2017-02-19] MEDS ORDERED: PILL SPLITTER OTHER PRN (14:30)
[2017-02-19] MEDS ORDERED: methylPREDNISolone SOD SUCC 125 MG/2 ML VIAL IV PUSH SCH (15:00)
[2017-02-19] MEDS ORDERED: ACETAMINOPHEN/HYDROcodone 325 MG/5 MG TAB PO PRN (15:30)
[2017-02-19] MEDS ORDERED: NALOXONE HCL 0.4 MG/ML AMP IV PUSH PRN (15:30)
[2017-02-19] MEDS ORDERED: ACETAMINOPHEN/HYDROcodone 325 MG/7.5 MG TAB PO PRN (15:30)
[2017-02-19] MEDS: SODIUM CHLOR 0.9% 1000 ML INJ 1,000 ML IV SCH ×2 (16:26→22:05)
[2017-02-19] MEDS: ENOXAPARIN SODIUM 40 MG/0.4 ML SYRINGE SQ SCH (18:27)
--- NOTE | 2017-02-19 18:42 | EKG ---
Date Performed: 02/18/2017 Time Performed: 11:36:54 PTAGE: 81 years EKG: Sinus rhythm RIGHT BUNDLE BRANCH BLOCK ABNORMAL ECG PREVIOUS TRACING : 10/25/2015 14.22 Compared to prior tracing no significant change DOCTOR: Odette Vyas Interpretating Date/Time 02/19/2017 18:41:16
[2017-02-19] MEDS ORDERED: methylPREDNISolone SOD SUCC 40 MG/1 ML VIAL IV PUSH SCH (21:00)
[2017-02-19] MEDS: BUDESONIDE-FORMOTEROL 160/4.5 MCG INHALER INH SCH (21:00)
[2017-02-19] MEDS: FAMOTIDINE 20 MG TAB PO SCH (22:02)
[2017-02-19] MEDS: MAGNESIUM HYDROXIDE SUSP 30 ML CUP PO PRN (22:02)
[2017-02-19] MEDS: traZODone HCL 50 MG TAB PO SCH (22:02)
[2017-02-19 22:13] LABS: BICARBONATE 22.6 MEQ/L (21.0-32.0); CALCIUM 8.2 MG/DL (8.5-10.1); CREATININE 1.07 MG/DL (0.50-1.00)
[2017-02-20] VITALS (14 sets, daily range): BP systolic 99–135; BP diastolic 55–71; PULSE 77–126; RESP 17–20; TEMP 96–97.2; O2SAT 93–99
[2017-02-20] MEDS: RESP: ALBUTEROL 2.5 MG/IPRATROPIUM 0.5 MG NEB (SCH) NEB ×6 (00:04→20:41)
[2017-02-20] MEDS: SODIUM CHLOR 0.9% 1000 ML INJ 1,000 ML IV SCH ×4 (02:34→22:18)
[2017-02-20 03:51] LABS: BICARBONATE 22.8 MEQ/L (21.0-32.0); CALCIUM 7.6 MG/DL (8.5-10.1); CREATININE 0.81 MG/DL (0.50-1.00)
[2017-02-20] MEDS ORDERED: CLOPIDOGREL 75 MG TAB PO SCH (09:00)
[2017-02-20] MEDS: SODIUM CHLORIDE 0.9% FLUSH 10 ML FLUSH IV FLUSH SCH ×2 (09:23→20:36)
[2017-02-20] MEDS: ATORVASTATIN 40 MG TAB PO SCH (09:23)
[2017-02-20] MEDS: DOCUSATE SODIUM 50 MG/SENNA 8.6 MG TAB PO SCH ×2 (09:23→20:36)
[2017-02-20] MEDS: FAMOTIDINE 20 MG TAB PO SCH ×2 (09:23→20:36)
[2017-02-20] MEDS: METOPROLOL SUCCINATE 50 MG EXTENDED RELEASE TAB PO SCH (09:23)
[2017-02-20] MEDS: predniSONE 20 MG TAB PO SCH (09:23)
[2017-02-20] MEDS: BUDESONIDE-FORMOTEROL 160/4.5 MCG INHALER INH SCH ×2 (09:24→20:37)
[2017-02-20] MEDS ORDERED: WALKER WHEELS/F1 MIS (10:28)
[2017-02-20] MEDS ORDERED: shower chair (10:28)
[2017-02-20] MEDS ORDERED: BEDSIDE COMMODE1 MI1 (10:28)
--- NOTE | 2017-02-20 10:33 | HHI.FPPN ---
Subjective Remarks No acute events overnight. I'll signs unremarkable but heart rate is becoming more tachycardic this morning. After seeing patient, was called by nurse statingg noticed A. fib. Patient was otherwise asymptomatic during that time. Patient was eating breakfast when A. fib was noted. This morning, patient reports that she feels well and continues to have improved respiratory status. Cough is also improving. (Helen Reyes MD, R3) Objective Vitals Vital Signs Date Time Temp Pulse Resp B/P (MAP) Pulse Ox O2 Delivery O2 Flow Rate FiO2 02/20/17 09:59 124 02/20/17 09:26 96 Room Air 02/20/17 08:00 96.0 112 18 135/66 (89) 96 02/20/17 05:21 94 Room Air 02/20/17 04:30 111 02/20/17 04:15 97.2 126 20 108/55 (72) 94 02/20/17 00:40 96.8 111 20 99/71 (80) 98 02/20/17 00:06 99 Nasal Cannula 2.00 02/19/17 23:52 107 02/19/17 22:00 98 Nasal Cannula 2.00 02/19/17 21:39 98 Nasal Cannula 2.00 02/19/17 20:00 96.7 76 20 132/76 (94) 98 02/19/17 19:45 77 02/19/17 16:00 95.9 72 20 113/52 (72) 99 02/19/17 12:00 96.6 62 20 122/58 (79) 100 02/19/17 10:52 99 Nasal Cannula 2.00 I/O 02/19/17 02/19/17 02/19/17 02/20/17 02/20/17 02/20/17 07:00 15:00 23:00 07:00 15:00 23:00 Intake Total 240 ml 480 ml 120 ml 1000 ml 60 ml Output Total 200 ml Balance 240 ml 480 ml 120 ml 1000 ml -140 ml Intake Oral 240 ml 480 ml 120 ml 60 ml IV Total 1000 ml Output Urine Total 200 ml # Voids 1 3 2 3 # Bowel Movements 0 0 0 (Helen Reyes MD, R3) Result Diagram: 02/19/17 0417 02/20/175 Objective Remarks GEN: Well-developed, well-nourished patient. No acute distress. CV: Regular rate and rhythm without obvious murmurs LUNGS: Coarse breath sounds bilaterally in all lung woo but improved. No accessory muscle use or respiratory distress. Able to speak in complete sentences. GI: Nondistended NEURO/PSYCH: Awake, alert. Appropriate insight and judgment. Normal speech (Helen Reyes MD, R3) A/P Assessment and Plan 81-year-old female with history of emphysema, CAD, HTN. Admitted for hyponatremia and hypertension Discharge Planning 1-2 days pending improvement in hyponatremia and further evaluation of tachycardia * PT/OT: Will need home health and the following equipment will be walker, shower chair, bedside commode. sdw Dr. Willis (Helen Reyes MD, R3) Attending Attestation Medical rounds were performed with Dr El, Patient was interviewed and examined, Agree with the contents of this note, See Assessment and Plan (Po Willis MD) Problem List: (1) Hyponatremia ICD Codes: E87.1 - Hyponatremia Status: Acute Plan: Hyponatremia of 116 found on admission. Likely chronic in nature. No clear etiology at this time. No obvious medication effects or excessive alcohol use. Evaluation for SIADH performed but is negative. Na slowly improving -urine sodium <40 -serial BMP q6hrs * goal: No more than 7meq Na increase in 24hrs. -continue with fluid restriction (800ml/day) -will start Normal saline to assist with treatment as well (2) Emphysema lung ICD Codes: J43.9 - Emphysema, unspecified Status: Chronic Plan: Reported hx of emphysema which was why pt reports being seen by Dr. Kurtz. Improved respiratory status since admission. CTA changes may be related to Emphysema. Low concern for infectious etiology at this time. -Pulmonary consulted, cancelled for now -PFTs ordered, pending -incentive spirometry Medications: * Albuterol and duoneb * Solumedrol 40mg BID 02/19 only * Oral Prednisone 40mg daily to start 02/20/17 Imaging: * CXR: no acute disease * CTA: no PE, diffuse interstitial lung disease with ground glass opacity may present an early congestion, and no consolidations, mild cardiomegaly (3) Tachycardia ICD Codes: R00.0 - Tachycardia, unspecified Plan: New onset tachycardia with reported afib from cardiac telemetry. -EKG ordered -will review strip to determine if this was sinus vs afib. If afib, will need oral anticoagulation as [id number] is 4, high risk. Will also need echo -will hold on increasing metoprolol for now as pt is asymptomatic and rate on admission was in the 60s. (4) Uncontrolled hypertension ICD Codes: I10 - Essential (primary) hypertension Status: Resolved Plan: Hx of HTN. Improved BP since admission -urine sodium and UA reassuring. -plasma renin and AM cortisol unremarkable Medications: * amlodipine 10mg daily * metoprolol 50mg daily * s/p hydralazine 10mg IV x1 in ED (5) CAD (coronary artery disease) ICD Codes: I25.10 - Atherosclerotic heart disease of [place] coronary artery without angina pectoris Status: Chronic Plan: HX of CAD -resume home statin and plavix (6) fen/ppx Status: Acute Plan: Fluids: NS at 75mls/hr Electrolytes: see plan above Nutrition: Regular diet, with fluid restriction as above DVT prophylaxis: Lovenox GI PPX: ranitidine due to steroid use (Helen Reyes MD, R3) Helen Reyes MD, R3 Feb 20, 2017 10:33 Po Willis MD Feb 21, 2017 14:51
[2017-02-20 11:40] LABS: BICARBONATE 21.5 MEQ/L (21.0-32.0); CALCIUM 8.2 MG/DL (8.5-10.1); CREATININE 0.83 MG/DL (0.50-1.00)
[2017-02-20] MEDS: ENOXAPARIN SODIUM 60 MG/0.6 ML SYRINGE SQ SCH ×2 (12:47→22:46)
--- NOTE | 2017-02-20 15:44 | EKG ---
Date Performed: 02/20/2017 Time Performed: 10:27:10 PTAGE: 81 years EKG: ATRIAL FIBRILLATION RIGHT BUNDLE BRANCH BLOCK ABNORMAL ECG PREVIOUS TRACING : 02/18/2017 11.36 Atrial fibrillation is new since prior tracing. Clinical co rrelation is recommended. DOCTOR: Harry Villalobos Interpretating Date/Time 02/20/2017 15:43:44
--- NOTE | 2017-02-20 17:04 | MB ---
cc: BRINA BAKER M.D. DATE OF CONSULTATION 02/20/2017 HISTORY OF THE PRESENT ILLNESS Catrina is a very pleasant 81-year-old lady who is chronically anticoagulated with Pradaxa according to her. She states that she came to the ER for chief complaint of hypertension. She denies chest pain, fevers, chills, cough, GI or bleeding, paroxysmal nocturnal dyspnea, orthopnea, syncope or dizziness or headache. According to the ER she was noted to have coughing and "congestion". PAST MEDICAL HISTORY Includes: 1. Hyponatremia. 2. Hyperlipidemia. 3. Asthma. 4. Gastroesophageal reflux disease. 5. Hiatal hernia. 6. Osteoarthritis of lower back. 7. Bilateral cataracts. 8. Ovarian cyst. SOCIAL HISTORY Drinks alcohol occasionally. Quit smoking 1994. ALLERGIES None. MEDICATIONS At home: 1. Metoprolol extended release 50 mg daily. 2. Norvasc 7.5 mg daily. 3. Crestor 20 mg daily. 4. Plavix 75 mg daily. Medications in the hospital: 1. Lovenox 60 subcu q.12 h. 2. Prednisone 40 milligrams daily. 3. Atorvastatin 40 mg daily. 4. Symbicort. 5. Trazodone. 6. Famotidine 10 mg b.i.d. 7. Metoprolol XL 50 daily. 8. Amlodipine 10 milligrams daily. PHYSICAL EXAMINATION VITAL SIGNS: Currently blood pressure 118/63, respiratory rate 18, pulse of 96, ranging between 96 and 124. Temperature 96.8, sats 97% on room air. GENERAL: She is alert and oriented times three in no acute distress. NECK: Supple. No JVD or bruit. CARDIOVASCULAR: Normal S1-S2. No murmurs, rubs or gallops. LUNGS: Clear to auscultation bilaterally. ABDOMEN: Soft, nontender, nondistended with positive bowel sounds. EXTREMITIES: No lower extremity edema. LABORATORY DATA White count 4.2, hemoglobin 8.8, hematocrit 25.8, platelet count 160. Sodium 124, potassium 4.0, chloride 93, BUN 25, creatinine 0.83, calcium 8.2. Cortisol 15.3. IMAGING Chest x-ray no acute cardiopulmonary disease, degenerative changes and scoliosis of the thoracolumbar spine. CT angiography, no evidence of pulmonary embolus. Diffuse interstitial lung disease with mild ground glass opacity may represent early congestion. No evidence of consolidating airspace disease, mild cardiomegaly with coronary artery calcification. EKG on admission initially a normal sinus rhythm at 60 beats per minute with a right bundle-branch block. Second EKG done on February 20 at 0100 hours shows a fib at a rate of 97 beats per minute, right bundle-branch block, nonspecific ST-T wave changes. She has the following diagnoses: DIAGNOSES: 1. Hypertension. 2. Paroxysmal A fib. 3. Anemia/ 4. Hyponatremia. 5. Hyperglycemia. DISCUSSION The patient's CHADS score is at least 3, therefore, Coumadin and/or novel oral anticoagulant agent such as Pradaxa, Eliquis are indicated. However, the patient has an unstable hemoglobin, is currently anemic with dropping hemoglobin on therapeutic Lovenox of 60 mg subcu q.12h. Also I am very concerned about risk of intracranial hemorrhage with uncontrolled blood pressure. Her initial blood pressure was 200/82. She also has a severe hyponatremia which is actually improving. At this point in time I agree with Romina, could consider changing calcium channel boyd given her reactive airway disease. She is therapeutically anticoagulated with Lovenox but definitely need to follow her trend in hemoglobin. Recommend continued telemetry monitoring. Further recommendations pending the trend in her hemoglobin, heart rate, reactive airway disease status and blood pressure. MD MAURA Blackman/ISRRAEL /2:18 PM /4:13 PM
[2017-02-20] MEDS: MAGNESIUM HYDROXIDE SUSP 30 ML CUP PO PRN (20:36)
[2017-02-20] MEDS: traZODone HCL 50 MG TAB PO SCH (20:36)
[2017-02-20] MEDS: ZOLPIDEM TARTRATE 5 MG TAB PO PRN (21:06)
[2017-02-20 23:09] LABS: HEMATOCRIT 26.2 % (35.0-46.0); HEMOGLOBIN 8.8 GM/DL (11.6-15.3); MEAN CORPUSCULAR HEMOGLOBIN 31.6 PG (27.0-34.0); MEAN CORPUSCULAR HGB CONC 33.6 % (32.0-36.0); MEAN PLATELET VOLUME 8.8 FL (7.0-11.0); PLATELET COUNT 178 TH/MM3 (150-450); RED BLOOD COUNT 2.79 MIL/MM3 (4.00-5.30); RED CELL DISTRIBUTION WIDTH 15.1 % (11.6-17.2); WHITE BLOOD COUNT 14.6 TH/MM3 (4.0-11.0)
[2017-02-20 23:30] LABS: BICARBONATE 24.6 MEQ/L (21.0-32.0); CREATININE 0.86 MG/DL (0.50-1.00)
[2017-02-21] VITALS (12 sets, daily range): BP systolic 121–137; BP diastolic 64–85; PULSE 82–118; RESP 18; TEMP 96–98.5; O2SAT 93–97
[2017-02-21] MEDS: RESP: ALBUTEROL 2.5 MG/IPRATROPIUM 0.5 MG NEB (SCH) NEB ×5 (01:00→19:45)
[2017-02-21] MEDS: SODIUM CHLOR 0.9% 1000 ML INJ 1,000 ML IV SCH ×2 (03:25→23:13)
[2017-02-21] MEDS ORDERED: PILL SPLITTER OTHER PRN (07:15)
[2017-02-21] MEDS: SODIUM CHLORIDE 0.9% FLUSH 10 ML FLUSH IV FLUSH SCH ×2 (09:00→20:38)
[2017-02-21] MEDS ORDERED: METOPROLOL SUCCINATE 50 MG EXTENDED RELEASE TAB PO SCH ×2 (09:00)
[2017-02-21] MEDS: BUDESONIDE-FORMOTEROL 160/4.5 MCG INHALER INH SCH ×2 (09:01→20:39)
[2017-02-21] MEDS: predniSONE 20 MG TAB PO SCH (09:01)
[2017-02-21] MEDS: ATORVASTATIN 40 MG TAB PO SCH (09:01)
[2017-02-21] MEDS: DOCUSATE SODIUM 50 MG/SENNA 8.6 MG TAB PO SCH ×2 (09:02→20:38)
[2017-02-21] MEDS: FAMOTIDINE 20 MG TAB PO SCH ×2 (09:02→20:38)
[2017-02-21] MEDS: DILTIAZEM HCL 30 MG TAB PO SCH ×2 (09:02→13:50)
--- NOTE | 2017-02-21 09:56 | RSPPFT ---
DATE OF PROCEDURE: 02/20/17 COMMENTS: Spirometry with FVC of 1.18, FEV1 of 0.9, FEV1/FVC ratio at 77%. A non-significant response to acutely inhaled bronchodilator noted. IMPRESSION: 1. Decreased flow rates. 2. No evidence of airways obstruction. 3. Possible airways restriction. 4. If clinically warranted, lung volumes may be helpful.
--- NOTE | 2017-02-21 10:45 | HHI.FPPN ---
Subjective Remarks No acute events overnight. Vital signs significant for pulse in the 100s. BP well-controlled. This morning patient continues state that she feels well and has continued improvement in her respiratory status. Denies palpitations, chest pain, lightheadedness. Denies any blood in stool or melena. (Helen Reyes MD, R3) Objective Vitals Vital Signs Date Time Temp Pulse Resp B/P (MAP) Pulse Ox O2 Delivery O2 Flow Rate FiO2 02/21/17 08:54 96.0 114 18 125/77 (93) 95 02/21/17 04:35 96.9 103 18 128/64 (85) 95 02/21/17 04:23 104 02/21/17 00:14 118 02/20/17 23:50 96.5 110 18 133/68 (89) 98 02/20/17 20:42 93 Nasal Cannula 02/20/17 20:20 96.8 77 17 109/57 (74) 96 02/20/17 19:59 101 02/20/17 18:40 108 02/20/17 16:00 96.6 95 18 126/57 (80) 94 02/20/17 12:00 96.8 96 18 118/63 (81) 97 I/O 02/20/17 02/20/17 02/20/17 02/21/17 02/21/17 02/21/17 07:00 15:00 23:00 07:00 15:00 23:00 Intake Total 1000 ml 540 ml 443 ml 120 ml Output Total 800 ml 200 ml 300 ml Balance 1000 ml -260 ml 243 ml -180 ml Intake Oral 540 ml 140 ml 120 ml IV Total 1000 ml 303 ml Output Urine Total 800 ml 200 ml 300 ml # Voids 3 # Bowel Movements 0 0 0 (Helen Reyes MD, R3) Result Diagram: 02/20/17224502/20/172245 Objective Remarks GEN: Well-developed, well-nourished patient. No acute distress. CV: Irregularly irregular rhythm, mildly tachycardic LUNGS: Coarse breath sounds bilaterally in all lung woo but again improved from yesterday. No accessory muscle use or respiratory distress. Able to speak in complete sentences. GI: Nondistended NEURO/PSYCH: Awake, alert. Appropriate insight and judgment. Normal speech (Helen Reyes MD, R3) A/P Assessment and Plan 81-year-old female with history of emphysema, CAD, HTN. Admitted for hyponatremia and hypertension Discharge Planning 2-3 days pending improvement in hyponatremia and rate control with oral medications * PT/OT: Will need home health and the following equipment walker, shower chair , bedside commode. sdw Dr. Willis (Helen Reyes MD, R3) Attending Attestation Medical rounds were performed with Dr El, Patient was interviewed and examined, Agree with the contents of this note, See Assessment and Plan (Po Willis MD) Problem List: (1) Hyponatremia ICD Codes: E87.1 - Hyponatremia Status: Acute Plan: Hyponatremia of 116 found on admission. Likely chronic in nature. No clear etiology at this time. No obvious medication effects or excessive alcohol use. Evaluation for SIADH performed but is negative. Na slowly improving -urine sodium <40 -serial BMP * goal: No more than 7meq Na increase in 24hrs. -continue with fluid restriction (800ml/day) -will start Normal saline to assist with treatment as well (2) Emphysema lung ICD Codes: J43.9 - Emphysema, unspecified Status: Chronic Plan: Reported hx of emphysema which was why pt reports being seen by Dr. Kurtz. Improved respiratory status since admission. CTA changes may be related to Emphysema. Low concern for infectious etiology at this time. -PFTs ordered: Decreased flow rates. No evidence of airway obstruction. Possible airways restriction. Consider lung volumes * Consider pulmonary follow-up as an outpatient -incentive spirometry Medications: * Albuterol and duoneb * Oral Prednisone 40mg daily to start 02/20/17 Imaging: * CXR: no acute disease * CTA: no PE, diffuse interstitial lung disease with ground glass opacity may present an early congestion, and no consolidations, mild cardiomegaly (3) New onset a-fib ICD Codes: I48.91 - Unspecified atrial fibrillation Status: Acute Plan: New-onset A. fib. Patient is asymptomatic but continues to have mild tachycardia. [id number] is 4, high risk. -Echo ordered, pending -Diltiazem started instead of metoprolol, will titrate as appropriate -will determine best anticoagulation based on insurance coverage Cardiology consulted: appreciate recommendations * Concerned about risk of intracranial hemorrhage with uncontrolled blood pressure. * agree with anticoagulation * consider changing to CCB given her airway disease. * follow H&H due to down trending hemoglobin. (4) Anemia Plan: Hx of anemia. Baseline appears to be around 10. Currently stable at 8.8 -closely monitor due to fully anticoagulation -Hemoccult ordered. No clinical signs of blood loss. (5) Uncontrolled hypertension ICD Codes: I10 - Essential (primary) hypertension Status: Resolved Plan: Hx of HTN. Improved BP since admission -urine sodium and UA reassuring. -plasma renin pending, AM cortisol unremarkable Medications: * amlodipine 10mg daily * s/p hydralazine 10mg IV x1 in ED (6) CAD (coronary artery disease) ICD Codes: I25.10 - Atherosclerotic heart disease of [place] coronary artery without angina pectoris Status: Chronic Plan: HX of CAD -resume home statin -HOLD home plavix due to anticoagulation (7) fen/ppx Status: Acute Plan: Fluids: NS at 75mls/hr Electrolytes: see plan above Nutrition: Regular diet, with fluid restriction as above DVT prophylaxis: Lovenox, full anticoagulation dose GI PPX: ranitidine due to steroid use (Helen Reyes MD, R3) Helen Reyes MD, R3 Feb 21, 2017 10:45 Po Willis MD Feb 21, 2017 14:54
[2017-02-21] MEDS: ENOXAPARIN SODIUM 60 MG/0.6 ML SYRINGE SQ SCH ×2 (12:55→23:12)
[2017-02-21 13:19] LABS: HEMATOCRIT 27.4 % (35.0-46.0); HEMOGLOBIN 9.1 GM/DL (11.6-15.3); MEAN CELL VOLUME 94.5 FL (80.0-100.0); MEAN CORPUSCULAR HEMOGLOBIN 31.2 PG (27.0-34.0); MEAN PLATELET VOLUME 8.7 FL (7.0-11.0); PLATELET COUNT 196 TH/MM3 (150-450); RED CELL DISTRIBUTION WIDTH 15.3 % (11.6-17.2); WHITE BLOOD COUNT 16.2 TH/MM3 (4.0-11.0)
[2017-02-21 13:52] LABS: BICARBONATE 23.4 MEQ/L (21.0-32.0); CALCIUM 8.4 MG/DL (8.5-10.1); CREATININE 0.76 MG/DL (0.50-1.00)
--- NOTE | 2017-02-21 16:13 | PD.CARD.PN ---
Subjective Subjective Remarks alert in nad Objective Medications Current Medications Medications (Trade) Dose Ordered Sig/Cori Route Start Time Stop Time Status Last Admin (NS Flush) 2 ml UNSCH PRN IV FLUSH 02/18/17 17:30 (NS Flush) 2 ml BID IV FLUSH 02/18/17 21:00 02/20/17 20:36 (Tylenol) 650 mg Q4H PRN PO 02/18/17 17:30 (Zofran Inj) 4 mg Q6H PRN IVP 02/18/17 17:30 (Narcan Inj) 0.4 mg UNSCH PRN IV PUSH 02/18/17 17:30 (Linda-Colace) 1 tab BID PO 02/18/17 21:00 02/21/17 09:02 (Milk Of Magnesia Liq) 30 ml Q12H PRN PO 02/18/17 17:30 02/20/17 20:36 (Senokot) 17.2 mg Q12H PRN PO 02/18/17 17:30 (Dulcolax Supp) 10 mg DAILY PRN RECTAL 02/18/17 17:30 02/21/17 06:38 (Lactulose Liq) 30 ml DAILY PRN PO 02/18/17 17:30 (Norvasc) 10 mg DAILY PO 02/19/17 09:00 02/21/17 09:02 (Vasotec Inj) 1.25 mg Q6H PRN IV PUSH 02/19/17 13:45 Sodium Chloride 1,000 ml @ 90 mls/hr Q11H7M IV 02/19/17 14:00 02/21/17 03:25 (Deltasone) 40 mg DAILY PO 02/20/17 09:00 02/21/17 09:01 (Albuterol Neb) 2.5 mg Q2HR NEB PRN INH 02/19/17 14:00 (Plavix) 75 mg DAILY PO 02/20/17 09:00 Future Hold 02/20/17 09:23 (Lipitor) 40 mg DAILY PO 02/20/17 09:00 02/21/17 09:01 (Symbicort 160-4.5 Mcg Inh) 2 puff Q12HR INH 02/19/17 21:00 02/21/17 09:01 (Desyrel) 50 mg HS PO 02/19/17 21:00 02/20/17 20:36 (Pepcid) 10 mg BID PO 02/19/17 21:00 02/21/17 09:02 (Pill Splitter) 1 ea UNSCH PRN OTHER 02/19/17 14:30 ([place] 5-325 Mg) 1 tab Q4H PRN PO 02/19/17 15:30 ([place] 7.5-325 Mg) 1 tab Q4H PRN PO 02/19/17 15:30 (Lovenox Inj) 60 mg Q12H SQ 02/20/17 12:00 02/21/17 12:55 (Ambien) 5 mg HS PRN PO 02/20/17 21:00 02/20/17 21:06 (Cardizem) 30 mg QID PO 02/21/17 09:00 02/21/17 13:50 (Duoneb Neb) 1 ampule Q6HR WHILE AWAKE NEB NEB 02/21/17 14:00 02/21/17 12:16 Vital Signs / I&O Vital Signs Date Time Temp Pulse Resp B/P (MAP) Pulse Ox O2 Delivery O2 Flow Rate FiO2 02/21/17 12:19 95 02/21/17 08:54 96.0 114 18 125/77 (93) 95 02/21/17 08:00 96.0 115 18 125/77 (93) 97 02/21/17 04:35 96.9 103 18 128/64 (85) 95 02/21/17 04:23 104 02/21/17 00:14 118 02/20/17 23:50 96.5 110 18 133/68 (89) 98 02/20/17 20:42 93 Nasal Cannula 02/20/17 20:20 96.8 77 17 109/57 (74) 96 02/20/17 19:59 101 02/20/17 18:40 108 I/O 02/20/17 02/20/17 02/20/17 02/21/17 02/21/17 02/21/17 07:00 15:00 23:00 07:00 15:00 23:00 Intake Total 1000 ml 540 ml 443 ml 120 ml Output Total 800 ml 200 ml 300 ml Balance 1000 ml -260 ml 243 ml -180 ml Intake Oral 540 ml 140 ml 120 ml IV Total 1000 ml 303 ml Output Urine Total 800 ml 200 ml 300 ml # Voids 3 # Bowel Movements 0 0 0 Laboratory Laboratory Tests Test 02/20/17 22:46 02/21/17 12:54 White Blood Count 14.6 TH/MM3 16.2 TH/MM3 Red Blood Count 2.79 MIL/MM3 2.90 MIL/MM3 Hemoglobin 8.8 GM/DL 9.1 GM/DL Hematocrit 26.2 % 27.4 % Mean Corpuscular Volume 94.0 FL 94.5 FL Mean Corpuscular Hemoglobin 31.6 PG 31.2 PG Mean Corpuscular Hemoglobin Concent 33.6 % 33.0 % Red Cell Distribution Width 15.1 % 15.3 % Platelet Count 178 TH/MM3 196 TH/MM3 Mean Platelet Volume 8.8 FL 8.7 FL Blood Urea Nitrogen 32 MG/DL 25 MG/DL Creatinine 0.86 MG/DL 0.76 MG/DL Random Glucose 148 MG/DL 124 MG/DL Calcium Level 8.0 MG/DL 8.4 MG/DL Sodium Level 129 MEQ/L 130 MEQ/L Potassium Level 4.0 MEQ/L 4.2 MEQ/L Chloride Level 96 MEQ/L 98 MEQ/L Carbon Dioxide Level 24.6 MEQ/L 23.4 MEQ/L Anion Gap 8 MEQ/L 9 MEQ/L Estimat Glomerular Filtration Rate 64 ML/MIN 73 ML/MIN Assessment and Plan Problem List: (1) New onset a-fib ICD Codes: I48.91 - Unspecified atrial fibrillation Status: Acute (2) Hypertension Status: Chronic Assessment and Plan 1.) PAF - rate controlled, intolerant of norvasc, dc norvasc, increase cardizem 60 mg q6hr, continue lovenox, start coumadin or noac tomorrow if patient consents and hgb stable Clayton Clark MD Feb 21, 2017 16:13
[2017-02-21] MEDS: DILTIAZEM HCL 60 MG TAB PO SCH ×2 (18:31→23:11)
--- NOTE | 2017-02-21 19:38 | ECHRPT ---
Indication: ATRIAL FIB CONCLUSIONS The left ventricular systolic function is hyperdynamic with an estimated ejection fraction in the ra nge of 65- 70%. Normal left ventricular size. Wall thickness is normal. No regional wall motion abnormalities are present. Mild to moderate mitral valve regurgitation. Aortic valve sclerosis. There is mild to moderate tricuspid regurgitation. There is estimated moderate pulmonary hypertension present (range 50-60 mmHg). BP: 135 / 66 HR: 124 Rhythm: Sinus MEASUREMENTS (Male / Female) Normal Values Technical Quality:Good 2D ECHO LV Diastolic Diameter PLAX 3.4 cm 4.2 - 5.9 / 3.9 - 5.3 cm LV Systolic Diameter PLAX 2.0 cm IVS Diastolic Thickness 1.0 cm 0.6 - 1.0 / 0.6 - 0.9 cm LVPW Diastolic Thickness 1.0 cm 0.6 - 1.0 / 0.6 - 0.9 cm LV Relative Wall Thickness 0.6 RV Internal Dim ED PLAX 2.3 cm LVOT Diameter 1.6 cm LA Systolic Diameter LX 3.9 cm 3.0 - 4.0 / 2.7 - 3.8 cm M-MODE Aortic Root Diameter MM 2.1 cm LA Systolic Diameter MM 4.0 cm LA Ao Ratio MM 1.9 AV Cusp Separation MM 1.1 cm DOPPLER AV Peak Velocity 204.0 cm/s AV Peak Gradient 16.6 mmHg LVOT Peak Velocity 127.0 cm/s LVOT Peak Gradient 6.5 mmHg AV Area Cont Eq pk 1.3 cm MV Area PHT 4.8 cm LV E' Lateral Velocity 6.9 cm/s LV E' Septal Velocity 7.2 cm/s TR Peak Velocity 318.0 cm/s TR Peak Gradient 40.4 mmHg Right Atrial Pressure 10.0 mmHg Pulmonary Artery Systolic Pressu 50.4 mmHg Right Ventricular Systolic Press 50.4 mmHg PV Peak Velocity 114.0 cm/s PV Peak Gradient 5.2 mmHg FINDINGS LEFT VENTRICLE The left ventricular systolic function is hyperdynamic with an estimated ejection fraction in the ra nge of 65- 70%. Normal left ventricular size. Wall thickness is normal. No regional wall motion abnormalities are present. RIGHT VENTRICLE Normal right ventricular size and systolic function. LEFT ATRIUM The left atrial size is normal. RIGHT ATRIUM The right atrial size is normal. ATRIAL SEPTUM Normal atrial septal thickness without atrial level shunting by limited color doppler interrogation. AORTA The aortic root and proximal ascending aorta are normal in size on limited imaging. MITRAL VALVE Structurally normal mitral valve. Mild to moderate mitral valve regurgitation. AORTIC VALVE Trileaflet aortic valve. No aortic valve stenosis or regurgitation. Aortic valve sclerosis. TRICUSPID VALVE Structurally normal tricuspid valve. There is mild to moderate tricuspid regurgitation. There is estimated moderate pulmonary hypertension present (range 50-60 mmHg). PULMONARY VALVE No pulmonary valve regurgitation or stenosis. VESSELS The inferior vena cava is normal in size. PERICARDIUM No pericardial effusion. Kenzie Carrillo MD, FACC (Electronically Signed) Final Date:21 February 2017 19:36
[2017-02-21] MEDS: traZODone HCL 50 MG TAB PO SCH (20:38)
[2017-02-21] MEDS: ZOLPIDEM TARTRATE 5 MG TAB PO PRN (22:28)
[2017-02-21 23:50] LABS: HEMOGLOBIN 8.4 GM/DL (11.6-15.3)
[2017-02-22] VITALS (10 sets, daily range): BP systolic 94–140; BP diastolic 56–77; PULSE 99–130; RESP 18–20; TEMP 96.2–98.7; O2SAT 92–97
[2017-02-22 00:09] LABS: BICARBONATE 22.7 MEQ/L (21.0-32.0); CALCIUM 7.7 MG/DL (8.5-10.1); CREATININE 0.98 MG/DL (0.50-1.00)
[2017-02-22] MEDS: SODIUM CHLOR 0.9% 1000 ML INJ 1,000 ML IV SCH (01:55)
[2017-02-22] MEDS: DILTIAZEM HCL 60 MG TAB PO SCH (05:29)
[2017-02-22] MEDS: RESP: ALBUTEROL 2.5 MG/IPRATROPIUM 0.5 MG NEB (SCH) NEB ×3 (07:37→20:22)
[2017-02-22 08:00] LABS: HEMATOCRIT 22.8 % (35.0-46.0); HEMOGLOBIN 7.8 GM/DL (11.6-15.3); MEAN CELL VOLUME 94.1 FL (80.0-100.0); MEAN PLATELET VOLUME 9.1 FL (7.0-11.0); PLATELET COUNT 171 TH/MM3 (150-450); RED BLOOD COUNT 2.42 MIL/MM3 (4.00-5.30); RED CELL DISTRIBUTION WIDTH 15.4 % (11.6-17.2); WHITE BLOOD COUNT 13.6 TH/MM3 (4.0-11.0)
[2017-02-22] MEDS: DOCUSATE SODIUM 50 MG/SENNA 8.6 MG TAB PO SCH ×2 (08:26→20:56)
[2017-02-22] MEDS: ATORVASTATIN 40 MG TAB PO SCH (08:27)
[2017-02-22] MEDS: predniSONE 20 MG TAB PO SCH (08:27)
[2017-02-22] MEDS: FAMOTIDINE 20 MG TAB PO SCH ×2 (08:27→20:56)
[2017-02-22] MEDS: BUDESONIDE-FORMOTEROL 160/4.5 MCG INHALER INH SCH ×2 (09:00→20:57)
[2017-02-22] MEDS ORDERED: APIXABAN 5 MG TABLET PO SCH (11:00)
[2017-02-22] MEDS: SODIUM CHLORIDE 0.9% FLUSH 10 ML FLUSH IV FLUSH SCH ×2 (11:17→20:57)
[2017-02-22] MEDS: DILTIAZEM HCL 90 MG TAB PO SCH ×3 (11:18→23:36)
--- NOTE | 2017-02-22 11:24 | HHI.FPPN ---
Subjective Remarks No acute events overnight. Vital signs unremarkable except for continued elevation of pulse in the 110s. Patient states that she will intermittently feel a heart flutter but otherwise asymptomatic. Overall she reports feeling well. (Helen Reyes MD, R3) Objective Vitals Vital Signs Date Time Temp Pulse Resp B/P (MAP) Pulse Ox O2 Delivery O2 Flow Rate FiO2 02/22/17 09:50 121 02/22/17 07:54 97.5 99 18 94/64 (74) 92 02/22/17 07:39 93 21 02/22/17 07:25 Room Air 02/22/17 04:35 96.6 130 20 120/62 (81) 94 02/22/17 04:00 107 02/22/17 00:30 96.7 122 19 100/56 (71) 93 02/21/17 23:00 107 02/21/17 20:25 96.6 117 18 124/68 (86) 94 02/21/17 20:00 94 Room Air 02/21/17 20:00 118 02/21/17 19:45 94 21 02/21/17 16:00 98.5 82 18 121/70 (87) 93 02/21/17 12:19 95 02/21/17 12:00 96.7 107 18 137/85 (102) 97 I/O 02/21/17 02/21/17 02/21/17 02/22/17 02/22/17 02/22/17 07:00 15:00 23:00 07:00 15:00 23:00 Intake Total 120 ml 240 ml 1588 ml Output Total 300 ml 1050 ml 325 ml Balance -180 ml -810 ml 1263 ml Intake Oral 120 ml 240 ml 120 ml IV Total 1468 ml Output Urine Total 300 ml 1050 ml 325 ml # Bowel Movements 0 0 0 (Helen Reyes MD, R3) Result Diagram: 02/22/17 0656 02/21/17 2333 Objective Remarks GEN: Well-developed, well-nourished patient. No acute distress. CV: Irregularly irregular rhythm, mildly tachycardic LUNGS: Coarse breath sounds bilaterally in all lung woo. No accessory muscle use or respiratory distress. Able to speak in complete sentences. GI: Nondistended NEURO/PSYCH: Awake, alert. Appropriate insight and judgment. Normal speech (Helen Reyes MD, R3) A/P Assessment and Plan 81-year-old female with history of emphysema, CAD, HTN. Admitted for hyponatremia and hypertension. Developed new onset of afib. Discharge Planning 1-2 days pending improvement in hyponatremia and rate control with oral medications * PT/OT: Will need home health and the following equipment walker, shower chair , bedside commode. sdw Dr. Willis (Helen Reyes MD, R3) Attending Attestation Medical rounds were performed with Dr Helen Reyes, patient seen and examined, Agree with documentation, See Orders (Po Willis MD) Problem List: (1) Hyponatremia ICD Codes: E87.1 - Hyponatremia Status: Resolved Plan: Hyponatremia of 116 found on admission. Likely chronic in nature. No clear etiology at this time. No obvious medication effects or excessive alcohol use. Evaluation for SIADH performed but is negative. Na slowly improving -urine sodium <40 -continue with fluid restriction (800ml/day) -dc fluids 02/22/17 (2) Emphysema lung ICD Codes: J43.9 - Emphysema, unspecified Status: Chronic Plan: Reported hx of emphysema which was why pt reports being seen by Dr. Kurtz. Improved respiratory status since admission. CTA changes may be related to Emphysema however PFTs showed possible airway restriction and echo is significant for pulmonary HTN. Low concern for infectious etiology at this time. -PFTs ordered: Decreased flow rates. No evidence of airway obstruction. Possible airways restriction. Consider lung volumes -Echo is significant for pulmonary HTN * pulmonary consulted -incentive spirometry Medications: * Albuterol and duoneb * Oral Prednisone 40mg daily to start 02/20/17 Imaging: * CXR: no acute disease * CTA: no PE, diffuse interstitial lung disease with ground glass opacity may present an early congestion, and no consolidations, mild cardiomegaly (3) New onset a-fib ICD Codes: I48.91 - Unspecified atrial fibrillation Status: Acute Plan: New-onset A. fib. Patient is asymptomatic but continues to have mild tachycardia. [id number] is 4, high risk. -Echo: EF of 65-70% mild to moderate mitral valve regurg and tricuspid regurg. Aortic sclerosis. Moderate pulmonary hypertension. -Diltiazem started instead of metoprolol, will titrate as appropriate -Eliquis for anticoagulation ($8 for patient at pharmacy) (currently on hold due to continued decrease of H&H Cardiology consulted: appreciate recommendations * Concerned about risk of intracranial hemorrhage with uncontrolled blood pressure. * agree with anticoagulation * increased diltiazem * follow H&H due to down trending hemoglobin * pt unable to tolerate amlodipine (4) Anemia Status: Chronic Plan: Hx of anemia. Baseline appears to be around 10. Was stable but now dropped to 7.8 -closely monitor due to fully anticoagulation -Hemoccult ordered-not yet obtained. No clinical signs of blood loss. -ferritin reassuring (5) Uncontrolled hypertension ICD Codes: I10 - Essential (primary) hypertension Status: Resolved Plan: Hx of HTN. Improved BP since admission -urine sodium and UA reassuring. -plasma renin pending, AM cortisol unremarkable Medications: * diltiazem to help with both afib and HTN * s/p hydralazine 10mg IV x1 in ED (6) CAD (coronary artery disease) ICD Codes: I25.10 - Atherosclerotic heart disease of [place] coronary artery without angina pectoris Status: Chronic Plan: HX of CAD -resume home statin -HOLD home plavix due to anticoagulation (7) fen/ppx Status: Acute Plan: Fluids: PO hydration with fluid restriction Electrolytes: see plan above Nutrition: Regular diet, with fluid restriction as above DVT prophylaxis: Eliquis GI PPX: ranitidine due to steroid use (Helen Reyes MD, R3) Helen Reyes MD, R3 Feb 22, 2017 11:24 Po Willis MD Feb 23, 2017 14:10
[2017-02-22] MEDS ORDERED: BISACODYL 10 MG SUPP RECTAL ONE (12:00)
[2017-02-22 13:28] LABS: HEMATOCRIT 26.7 % (35.0-46.0); HEMOGLOBIN 9.2 GM/DL (11.6-15.3); MEAN CELL VOLUME 93.6 FL (80.0-100.0); MEAN CORPUSCULAR HEMOGLOBIN 32.1 PG (27.0-34.0); MEAN CORPUSCULAR HGB CONC 34.2 % (32.0-36.0); MEAN PLATELET VOLUME 9.1 FL (7.0-11.0); PLATELET COUNT 227 TH/MM3 (150-450); RED BLOOD COUNT 2.86 MIL/MM3 (4.00-5.30); RED CELL DISTRIBUTION WIDTH 15.3 % (11.6-17.2); WHITE BLOOD COUNT 15.3 TH/MM3 (4.0-11.0)
[2017-02-22 13:36] LABS: BICARBONATE 21.7 MEQ/L (21.0-32.0); CALCIUM 8.4 MG/DL (8.5-10.1); CREATININE 0.9 MG/DL (0.50-1.00)
--- NOTE | 2017-02-22 14:34 | HHI.FF ---
Face to Face Verification Diagnosis: (1) Emphysema lung (2) New onset a-fib (3) Fatigue Physical Therapy Order: Evaluate and Treat I have seen patient Catrina Perea on 02/22/17. My clinical findings support the need for the requested home health care services because: Patient has SOB Deconditioned w/ increased weakness High risk of falls I certify that my clinical findings support that this patient is homebound because: Hx COPD- exertion dyspnea/weakness Helen Reyes MD, R3 Feb 22, 2017 14:34
[2017-02-22 14:51] LABS: RETIC # 61.5 MIL/L (20.0-150.0); RETIC % 2.2 % (0.4-3.0)
--- NOTE | 2017-02-22 17:10 | PD.CARD.PN ---
Subjective Subjective Remarks alert in nad Objective Medications Current Medications Medications (Trade) Dose Ordered Sig/Cori Route Start Time Stop Time Status Last Admin (NS Flush) 2 ml UNSCH PRN IV FLUSH 02/18/17 17:30 (NS Flush) 2 ml BID IV FLUSH 02/18/17 21:00 02/22/17 11:17 (Tylenol) 650 mg Q4H PRN PO 02/18/17 17:30 (Zofran Inj) 4 mg Q6H PRN IVP 02/18/17 17:30 (Narcan Inj) 0.4 mg UNSCH PRN IV PUSH 02/18/17 17:30 (Linda-Colace) 1 tab BID PO 02/18/17 21:00 02/22/17 08:26 (Milk Of Magnesia Liq) 30 ml Q12H PRN PO 02/18/17 17:30 02/20/17 20:36 (Senokot) 17.2 mg Q12H PRN PO 02/18/17 17:30 (Dulcolax Supp) 10 mg DAILY PRN RECTAL 02/18/17 17:30 02/21/17 06:38 (Lactulose Liq) 30 ml DAILY PRN PO 02/18/17 17:30 (Vasotec Inj) 1.25 mg Q6H PRN IV PUSH 02/19/17 13:45 (Deltasone) 40 mg DAILY PO 02/20/17 09:00 02/22/17 08:27 (Albuterol Neb) 2.5 mg Q2HR NEB PRN INH 02/19/17 14:00 (Plavix) 75 mg DAILY PO 02/20/17 09:00 Future Hold 02/20/17 09:23 (Lipitor) 40 mg DAILY PO 02/20/17 09:00 02/22/17 08:27 (Symbicort 160-4.5 Mcg Inh) 2 puff Q12HR INH 02/19/17 21:00 02/22/17 09:00 (Desyrel) 50 mg HS PO 02/19/17 21:00 02/21/17 20:38 (Pepcid) 10 mg BID PO 02/19/17 21:00 02/22/17 08:27 (Pill Splitter) 1 ea UNSCH PRN OTHER 02/19/17 14:30 (Story 5-325 Mg) 1 tab Q4H PRN PO 02/19/17 15:30 (Story 7.5-325 Mg) 1 tab Q4H PRN PO 02/19/17 15:30 (Ambien) 5 mg HS PRN PO 02/20/17 21:00 02/21/17 22:28 (Duoneb Neb) 1 ampule Q6HR WHILE AWAKE NEB NEB 02/21/17 14:00 02/22/17 13:59 (Cardizem) 90 mg Q6HR PO 02/22/17 12:00 02/22/17 11:18 (Eliquis) 5 mg BID@1100,2300 PO 02/22/17 11:00 Future Hold 02/22/17 11:17 Vital Signs / I&O Vital Signs Date Time Temp Pulse Resp B/P (MAP) Pulse Ox O2 Delivery O2 Flow Rate FiO2 02/22/17 15:49 97.8 102 18 130/60 (83) 97 02/22/17 11:25 98.7 130 18 140/75 (96) 96 02/22/17 09:50 121 02/22/17 07:54 97.5 99 18 94/64 (74) 92 02/22/17 07:39 93 21 02/22/17 07:25 Room Air 02/22/17 04:35 96.6 130 20 120/62 (81) 94 02/22/17 04:00 107 02/22/17 00:30 96.7 122 19 100/56 (71) 93 02/21/17 23:00 107 02/21/17 20:25 96.6 117 18 124/68 (86) 94 02/21/17 20:00 94 Room Air 02/21/17 20:00 118 02/21/17 19:45 94 21 I/O 02/21/17 02/21/17 02/21/17 02/22/17 02/22/17 02/22/17 07:00 15:00 23:00 07:00 15:00 23:00 Intake Total 120 ml 240 ml 1588 ml 400 ml Output Total 300 ml 1050 ml 325 ml 400 ml Balance -180 ml -810 ml 1263 ml 0 ml Intake Oral 120 ml 240 ml 120 ml 400 ml IV Total 1468 ml Output Urine Total 300 ml 1050 ml 325 ml 400 ml # Bowel Movements 0 0 0 Physical Exam GENERAL: SKIN: Warm and dry. HEAD: Normocephalic. EYES: No scleral icterus. No injection or drainage. NECK: Supple, trachea midline. No JVD or lymphadenopathy. CARDIOVASCULAR: Regular rate and rhythm without murmurs, gallops, or rubs. RESPIRATORY: Breath sounds equal bilaterally. No accessory muscle use. GASTROINTESTINAL: Abdomen soft, non-tender, nondistended. MUSCULOSKELETAL: No cyanosis, or edema. BACK: Nontender without obvious deformity. No CVA tenderness. Laboratory Laboratory Tests Test 02/21/17 23:33 02/22/17 06:56 02/22/17 12:41 02/22/17 13:14 Hemoglobin 8.4 GM/DL 7.8 GM/DL 9.2 GM/DL Hematocrit 24.0 % 22.8 % 26.7 % Blood Urea Nitrogen 31 MG/DL 26 MG/DL Creatinine 0.98 MG/DL 0.90 MG/DL Random Glucose 142 MG/DL 143 MG/DL Calcium Level 7.7 MG/DL 8.4 MG/DL Sodium Level 131 MEQ/L 130 MEQ/L Potassium Level 4.3 MEQ/L 3.9 MEQ/L Chloride Level 100 MEQ/L 97 MEQ/L Carbon Dioxide Level 22.7 MEQ/L 21.7 MEQ/L Anion Gap 8 MEQ/L 11 MEQ/L Estimat Glomerular Filtration Rate 55 ML/MIN 60 ML/MIN Ferritin 157 NG/ML White Blood Count 13.6 TH/MM3 15.3 TH/MM3 Red Blood Count 2.42 MIL/MM3 2.86 MIL/MM3 Mean Corpuscular Volume 94.1 FL 93.6 FL Mean Corpuscular Hemoglobin 32.0 PG 32.1 PG Mean Corpuscular Hemoglobin Concent 34.0 % 34.2 % Red Cell Distribution Width 15.4 % 15.3 % Platelet Count 171 TH/MM3 227 TH/MM3 Mean Platelet Volume 9.1 FL 9.1 FL Reticulocyte Count 2.2 % Absolute Reticulocyte Count 61.5 MIL/L Assessment and Plan Problem List: (1) New onset a-fib ICD Codes: I48.91 - Unspecified atrial fibrillation Status: Acute (2) Hypertension Status: Chronic Assessment and Plan 1.) PAF - rate intermittently controlled, intolerant of norvasc, dc norvasc, increase cardizem 90 mg q6hr, lovenox held due to anemia and unstable hgb, hematology consult for anemia and risk stratify for coumadin or noac Clayton Clark MD Feb 22, 2017 17:10
--- NOTE | 2017-02-22 18:46 | MB ---
cc: JERARDO KURTZ DATE OF CONSULTATION 02/22/17 REASON FOR CONSULTATION Bronchial asthma. HISTORY OF PRESENT ILLNESS Mrs. Perea is a 81-year-old female who has known history of bronchial asthma followed by myself as an outpatient and treated for same, admitted with hypertension. The patient has mild increase in her shortness of breath with intermittent wheeze which started about 10 days ago and seems to have improved over time. She did have a CT angiogram without evidence of pulmonary emboli, increased interstitial markings were noted. She has seen by cardiology and followed by Dr. Clark for same. PAST MEDICAL HISTORY 1. Bronchial asthma, 2. Chronic anemia, 3. Paroxysmal atrial fibrillation 4. Acid reflux disease, 5. Degenerative joint disease. 6. Previous cataract surgery 7. Ovarian cyst removal. SOCIAL HISTORY Does not smoke or drink. Did smoke up until the year 1994 MEDICATIONS At home 1. Inhaled bronchodilator 2. Metoprolol. 3. Norvasc 4. Restoril 5. Plavix 6. Anticoagulant therapy At present 1. Prednisone. 2. Atorvastatin 3. Lovenox 4. Symbicort. 5. Trazodone 6. Femotidine 7. Metoprolol. 8. Amlodipine. FAMILY HISTORY Noncontributory. REVIEW OF SYSTEMS 12-point review of systems as per HPI and past history otherwise negative. PHYSICAL EXAMINATION GENERAL: The patient is alert, ambulating. VITAL SIGNS: Temperature of 98, pulse 90, respirations 18, blood pressure 130/60, oxygen saturation 96% room air. HEENT: Exam unremarkable. Eyes without icterus. NECK: Without adenopathy, thyroid enlargement. Central trachea. CHEST: Scattered end-expiratory wheeze at bases. CARDIAC: PMI not appreciated. S1-S2 audible, no murmur or rub. ABDOMEN: Lax, audible bowel sounds. EXTREMITIES: No clubbing, cyanosis or edema. LABORATORY DATA White count 15,000, hemoglobin 9.2, hematocrit 26. Sodium 130, potassium 3.9, BUN 26, creatinine 0.9. IMAGING STUDIES CT angiogram without evidence of pulmonary embolism. Diffuse interstitial changes noted, mild cardiomegaly with coronary artery calcification. IMPRESSION 1. Bronchial asthma, seems stable at present. The patient apparently had a URI over a week ago which has gradually since improved. 2. Paroxysmal atrial fibrillation 3. Coronary artery disease 4. Chronic anemia. PLAN The patient will be maintained on bronchodilator therapy. Her oxygenation is adequate on room air. She is followed by cardiology at this time. She is encouraged to continue to ambulate which she is doing at this time during my evaluation. Once discharged, we will follow up her care as an outpatient. I do thank you for asking me to partake in Mrs. Perea care. Jerardo Kurtz MD WWW/ /5:14 PM /6:10 PM
[2017-02-22] MEDS: traZODone HCL 50 MG TAB PO SCH (20:56)
[2017-02-22] MEDS: ZOLPIDEM TARTRATE 5 MG TAB PO PRN (23:36)
[2017-02-23] VITALS (8 sets, daily range): BP systolic 108–149; BP diastolic 42–94; PULSE 85–119; RESP 19–20; TEMP 96.7–97.8; O2SAT 94–98
[2017-02-23] MEDS: DILTIAZEM HCL 90 MG TAB PO SCH ×4 (05:34→23:33)
[2017-02-23 07:07] LABS: HEMATOCRIT 22.1 % (35.0-46.0); HEMOGLOBIN 7.5 GM/DL (11.6-15.3)
[2017-02-23 07:31] LABS: BICARBONATE 23.4 MEQ/L (21.0-32.0); BLOOD UREA NITROGEN 29 MG/DL (7-18); CHLORIDE 100 MEQ/L (98-107); CREATININE 0.82 MG/DL (0.50-1.00); GLOMERULAR FILTRATION RATE 67 ML/MIN (>89); GLUCOSE,RANDOM 109 MG/DL (74-106); IRON (FE) 63 MCG/DL (50-170); SODIUM (NA) 130 MEQ/L (136-145); TOTAL IRON BINDING CAPACITY 252 MCG/DL (250-450)
[2017-02-23 07:58] LABS: FERRITIN 174 NG/ML (8-252); LDH SERUM 204 U/L (84-246)
[2017-02-23] MEDS: predniSONE 20 MG TAB PO SCH (08:23)
[2017-02-23] MEDS: FAMOTIDINE 20 MG TAB PO SCH ×2 (08:23→20:35)
[2017-02-23] MEDS: ATORVASTATIN 40 MG TAB PO SCH (08:23)
[2017-02-23] MEDS: DOCUSATE SODIUM 50 MG/SENNA 8.6 MG TAB PO SCH ×2 (08:23→20:35)
[2017-02-23] MEDS: BUDESONIDE-FORMOTEROL 160/4.5 MCG INHALER INH SCH ×2 (08:27→20:35)
[2017-02-23] MEDS: RESP: ALBUTEROL 2.5 MG/IPRATROPIUM 0.5 MG NEB (SCH) NEB ×3 (08:46→20:49)
[2017-02-23] MEDS: SODIUM CHLORIDE 0.9% FLUSH 10 ML FLUSH IV FLUSH SCH ×2 (09:00→20:35)
--- NOTE | 2017-02-23 09:10 | MB ---
cc: ANUJ SALES MD DATE OF CONSULTATION 02/23/2017 CHIEF COMPLAINT 1. Anemia 2. History of atrial fibrillation 3. Chronic anticoagulation due to atrial fibrillation. HISTORY OF PRESENT ILLNESS Ms. Perea is a 81-year-old lady with a history of asthma, chronic anemia, paroxysmal atrial fibrillation who was admitted to the hospital on 02/18/2017 for further evaluation and management of hypertension. For her asthma, she follows with pulmonary in the outpatient setting and Dr. Kurtz is following while inpatient. CTA without any evidence of pulmonary emboli. She also follows with Dr. Clark for her cardiology care. She has atrial fibrillation and anticoagulation therapy is being held. Laboratory studies reveal a white blood cell count of 15.3. White blood cell count is only elevated inside the hospital, outside the hospital was within normal limits. Hemoglobin of 9.2. Hemoglobin variable inside the hospital. On previous lab values, it has been approximately 10. Hemoglobin is normocytic. Platelet count is within normal limits. Creatinine is normal. LFTs are normal on admission. PAST MEDICAL HISTORY 1. Hypertension 2. Acid reflux 3. Anticoagulation with Warfarin 4. Asthma 5. Hyperlipidemia 6. Osteoarthritis SOCIAL HISTORY Quit smoking in the . ALLERGIES No allergies. FAMILY HISTORY Father with a history of stroke. ROS as above in HPI PHYSICAL EXAMINATION GENERAL: A well-developed, well-nourished lady in no distress. HEAD, EYES, EARS, NOSE, AND THROAT: Normocephalic, atraumatic. Oropharynx clear. CARDIAC: No murmurs. RESPIRATORY: Clear to auscultation bilaterally. ABDOMEN: Soft, nontender, nondistended with bowel sounds present. EXTREMITIES: With no edema. NEUROLOGIC: Grossly nonfocal. PSYCH: Appropriate mood and affect. IMPRESSION 1. Normocytic anemia: will perform work up to determine etiology. She reports normal bowel movements. She had recent colonoscopy done approximately one year ago. She also reports that she does have a history of acid reflux. Will check laboratory studies to include stool for occult blood, vitamin B12, iron profile, ferritin, LDH and haptoglobin. Consider GI consult for EGD/ colonoscopy. 2. Atrial fibrillation with need for chronic anticoagulation for CVA prevention : Risks versus benefits discussion will need to be held with patient. She reports that one of her main fears is having a stroke and she wants to do everything possible to avoid this. The risks of anticoagulation would include hemorrhage, QUALITY ASSURANCE QA LAB ANALYST bleeding. The risks of going without anticoagulation would include embolic CVA. Cardiology team would need to address yearly risk of stroke with patient. Options for anticoagulation would include apixaban vs warfarin. Hematology service will continue to follow while inpatient. MD BO Romero/XIOMARA /5:03 AM /8:37 AM [email or web address]
--- NOTE | 2017-02-23 09:11 | PD.CARD.PN ---
Subjective Subjective Remarks alert in nad Objective Medications Current Medications Medications (Trade) Dose Ordered Sig/Cori Route Start Time Stop Time Status Last Admin (NS Flush) 2 ml UNSCH PRN IV FLUSH 02/18/17 17:30 (NS Flush) 2 ml BID IV FLUSH 02/18/17 21:00 02/22/17 20:57 (Tylenol) 650 mg Q4H PRN PO 02/18/17 17:30 02/22/17 20:04 (Zofran Inj) 4 mg Q6H PRN IVP 02/18/17 17:30 (Narcan Inj) 0.4 mg UNSCH PRN IV PUSH 02/18/17 17:30 (Linda-Colace) 1 tab BID PO 02/18/17 21:00 02/23/17 08:23 (Milk Of Magnesia Liq) 30 ml Q12H PRN PO 02/18/17 17:30 02/20/17 20:36 (Senokot) 17.2 mg Q12H PRN PO 02/18/17 17:30 (Dulcolax Supp) 10 mg DAILY PRN RECTAL 02/18/17 17:30 02/21/17 06:38 (Lactulose Liq) 30 ml DAILY PRN PO 02/18/17 17:30 (Vasotec Inj) 1.25 mg Q6H PRN IV PUSH 02/19/17 13:45 (Deltasone) 40 mg DAILY PO 02/20/17 09:00 02/24/17 00:00 02/23/17 08:23 (Albuterol Neb) 2.5 mg Q2HR NEB PRN INH 02/19/17 14:00 (Plavix) 75 mg DAILY PO 02/20/17 09:00 Future Hold 02/20/17 09:23 (Lipitor) 40 mg DAILY PO 02/20/17 09:00 02/23/17 08:23 (Symbicort 160-4.5 Mcg Inh) 2 puff Q12HR INH 02/19/17 21:00 02/23/17 08:27 (Desyrel) 50 mg HS PO 02/19/17 21:00 Future Hold 02/22/17 20:56 (Pepcid) 10 mg BID PO 02/19/17 21:00 02/23/17 08:23 (Pill Splitter) 1 ea UNSCH PRN OTHER 02/19/17 14:30 (Adel 5-325 Mg) 1 tab Q4H PRN PO 02/19/17 15:30 (Adel 7.5-325 Mg) 1 tab Q4H PRN PO 02/19/17 15:30 (Ambien) 5 mg HS PRN PO 02/20/17 21:00 02/22/17 23:36 (Duoneb Neb) 1 ampule Q6HR WHILE AWAKE NEB NEB 02/21/17 14:00 02/23/17 08:46 (Cardizem) 90 mg Q6HR PO 02/22/17 12:00 02/23/17 05:34 (Eliquis) 5 mg BID@1100,2300 PO 02/22/17 11:00 Future Hold 02/22/17 11:17 Vital Signs / I&O Vital Signs Date Time Temp Pulse Resp B/P (MAP) Pulse Ox O2 Delivery O2 Flow Rate FiO2 02/23/17 08:48 95 21 02/23/17 07:42 96.9 85 19 121/55 (77) 94 02/23/17 04:20 96.9 88 20 108/79 (89) 95 02/23/17 00:25 96.7 113 19 135/69 (91) 97 02/22/17 20:30 96.2 111 19 131/77 (95) 97 02/22/17 20:22 97 21 02/22/17 20:00 97 Room Air 02/22/17 15:49 97.8 102 18 130/60 (83) 97 02/22/17 11:25 98.7 130 18 140/75 (96) 96 02/22/17 09:50 121 I/O 02/22/17 02/22/17 02/22/17 02/23/17 02/23/17 02/23/17 07:00 15:00 23:00 07:00 15:00 23:00 Intake Total 1588 ml 400 ml 280 ml 120 ml Output Total 325 ml 400 ml 250 ml 325 ml Balance 1263 ml 0 ml 30 ml -205 ml Intake Oral 120 ml 400 ml 280 ml 120 ml IV Total 1468 ml Output Urine Total 325 ml 400 ml 250 ml 325 ml # Bowel Movements 0 0 0 Physical Exam GENERAL: SKIN: Warm and dry. HEAD: Normocephalic. EYES: No scleral icterus. No injection or drainage. NECK: Supple, trachea midline. No JVD or lymphadenopathy. CARDIOVASCULAR: Regular rate and rhythm without murmurs, gallops, or rubs. RESPIRATORY: Breath sounds equal bilaterally. No accessory muscle use. GASTROINTESTINAL: Abdomen soft, non-tender, nondistended. MUSCULOSKELETAL: No cyanosis, or edema. BACK: Nontender without obvious deformity. No CVA tenderness. Laboratory Laboratory Tests Test 02/22/17 12:41 02/22/17 13:14 02/23/17 06:42 White Blood Count 15.3 TH/MM3 Red Blood Count 2.86 MIL/MM3 Hemoglobin 9.2 GM/DL 7.5 GM/DL Hematocrit 26.7 % 22.1 % Mean Corpuscular Volume 93.6 FL Mean Corpuscular Hemoglobin 32.1 PG Mean Corpuscular Hemoglobin Concent 34.2 % Red Cell Distribution Width 15.3 % Platelet Count 227 TH/MM3 Mean Platelet Volume 9.1 FL Blood Urea Nitrogen 26 MG/DL 29 MG/DL Creatinine 0.90 MG/DL 0.82 MG/DL Random Glucose 143 MG/DL 109 MG/DL Calcium Level 8.4 MG/DL 8.0 MG/DL Sodium Level 130 MEQ/L 130 MEQ/L Potassium Level 3.9 MEQ/L 4.1 MEQ/L Chloride Level 97 MEQ/L 100 MEQ/L Carbon Dioxide Level 21.7 MEQ/L 23.4 MEQ/L Anion Gap 11 MEQ/L 7 MEQ/L Estimat Glomerular Filtration Rate 60 ML/MIN 67 ML/MIN Reticulocyte Count 2.2 % Absolute Reticulocyte Count 61.5 MIL/L Blood Smear Pathologist Review Haptoglobin 188 MG/DL Lactate Dehydrogenase 204 U/L Iron Level 63 MCG/DL Total Iron Binding Capacity 252 MCG/DL Percent Iron Saturation 25.0 % Ferritin 174 NG/ML Vitamin B12 Level GREATER THAN 2000 PG/ML Assessment and Plan Problem List: (1) New onset a-fib ICD Codes: I48.91 - Unspecified atrial fibrillation Status: Acute (2) Hypertension Status: Chronic Assessment and Plan 1.) PAF - rate intermittently controlled, intolerant of norvasc, dc norvasc, increase cardizem 90 mg q6hr, lovenox held due to anemia and unstable hgb, f/u hematology consult for anemia and risk stratify for coumadin or noac Ingrid Clarkur W MD Feb 23, 2017 09:11
--- NOTE | 2017-02-23 10:39 | HHI.FPPN ---
Subjective Remarks No acute events overnight. Vital signs unremarkable. Pulse continues to around 100s. Patient does report possibly seeing hallucinations as she is trying to fall asleep prior to getting Ambien last night. Patient denies taking trazodone at home and did take it last night even though she stated that she did not. Patient otherwise denies any SOB, chest palpitation. Her biggest concern is about her plavix as she does not want to get a stroke. Pt denies having a BM even after the suppository. (Helen Reyes MD, R3) Objective Vitals Vital Signs Date Time Temp Pulse Resp B/P (MAP) Pulse Ox O2 Delivery O2 Flow Rate FiO2 02/23/17 08:48 95 21 02/23/17 07:42 96.9 85 19 121/55 (77) 94 02/23/17 04:20 96.9 88 20 108/79 (89) 95 02/23/17 00:25 96.7 113 19 135/69 (91) 97 02/22/17 20:30 96.2 111 19 131/77 (95) 97 02/22/17 20:22 97 21 02/22/17 20:00 97 Room Air 02/22/17 15:49 97.8 102 18 130/60 (83) 97 02/22/17 11:25 98.7 130 18 140/75 (96) 96 I/O 02/22/17 02/22/17 02/22/17 02/23/17 02/23/17 02/23/17 07:00 15:00 23:00 07:00 15:00 23:00 Intake Total 1588 ml 400 ml 280 ml 120 ml Output Total 325 ml 400 ml 250 ml 325 ml Balance 1263 ml 0 ml 30 ml -205 ml Intake Oral 120 ml 400 ml 280 ml 120 ml IV Total 1468 ml Output Urine Total 325 ml 400 ml 250 ml 325 ml # Bowel Movements 0 0 0 (Helen Reyes MD, R3) Result Diagram: 02/23/17 0642 02/23/17 0642 Objective Remarks GEN: Well-developed, well-nourished patient. No acute distress. CV: Irregularly irregular rhythm, normal rate without obvious murmurs. LUNGS: Coarse breath sounds bilaterally in all lung woo but improved. No accessory muscle use or respiratory distress. Able to speak in complete sentences. GI: Nondistended EXT: No LE edema, no calf tenderness. NEURO/PSYCH: Awake, alert. Appropriate insight and judgment. Normal speech (Helen Reyes MD, R3) A/P Assessment and Plan 81-year-old female with history of emphysema, CAD, HTN. Admitted for hyponatremia and hypertension. Developed new onset of afib. Discharge Planning 1-2 days pending improvement of HR and determination of anticoagulation. * PT/OT: Will need home health and the following equipment walker, shower chair , bedside commode. sdw Dr. Willis (Helen Reyes MD, R3) Attending Attestation Medical rounds were performed with Dr Helen Reyes, patient seen and examined, Agree with documentation, See Orders (Po Willis MD) Problem List: (1) Hyponatremia ICD Codes: E87.1 - Hyponatremia Status: Resolved Plan: Hyponatremia of 116 found on admission. Likely chronic in nature. No clear etiology at this time. No obvious medication effects or excessive alcohol use. Evaluation for SIADH performed but is negative. Na stable. -urine sodium <40 -continue with fluid restriction (800ml/day) -dc fluids 02/22/17 (2) Emphysema lung ICD Codes: J43.9 - Emphysema, unspecified Status: Chronic Plan: Reported hx of emphysema which was why pt reports being seen by Dr. Kurtz. Improved respiratory status since admission. CTA changes may be related to Emphysema however PFTs showed possible airway restriction and echo is significant for pulmonary HTN. Low concern for infectious etiology at this time. -PFTs ordered: Decreased flow rates. No evidence of airway obstruction. Possible airways restriction. Consider lung volumes -Echo is significant for pulmonary HTN * pulmonary consulted, appreciate recommendations: Bronchia asthma, follow up as outpatient. -incentive spirometry Medications: * Albuterol and duoneb * Oral Prednisone 40mg daily to start 02/20/17-02/23 Imaging: * CXR: no acute disease * CTA: no PE, diffuse interstitial lung disease with ground glass opacity may present an early congestion, and no consolidations, mild cardiomegaly (3) New onset a-fib ICD Codes: I48.91 - Unspecified atrial fibrillation Status: Acute Plan: New-onset A. fib. Patient is asymptomatic but continues to have mild tachycardia. [id number] is 4, high risk. -Echo: EF of 65-70% mild to moderate mitral valve regurg and tricuspid regurg. Aortic sclerosis. Moderate pulmonary hypertension. -Diltazem to be converted to long acting 02/24 at 360mg daily -Eliquis for anticoagulation ($8 for patient at pharmacy) (currently on hold due to continued decrease of H&H Cardiology consulted: appreciate recommendations * Concerned about risk of intracranial hemorrhage with uncontrolled blood pressure. * agree with anticoagulation * diltiazem * follow H&H due to down trending hemoglobin * pt unable to tolerate amlodipine Hematology consulted by cardiology: appreciate recommendations * B12, iron profile, ferritin, LDH, haptoglobin ordered * risk management for anticoagulation will be be assess by cardiology. Pluses and minuses of warfarin vs Eliquis. (4) Anemia Status: Chronic Plan: Hx of anemia. Baseline appears to be around 10. Was stable but now dropped to a low of 7.5 -closely monitor due to fully anticoagulation -Hemoccult ordered-not yet obtained. No clinical signs of blood loss. -ferritin reassuring -retic count abnormally normal -iron studies, LDH, haptoglobin WNL -B12 elevated >2000 (5) Uncontrolled hypertension ICD Codes: I10 - Essential (primary) hypertension Status: Resolved Plan: Hx of HTN. Improved BP since admission -urine sodium and UA reassuring. -plasma renin normal, AM cortisol unremarkable Medications: * diltiazem to help with both afib and HTN * s/p hydralazine 10mg IV x1 in ED (6) CAD (coronary artery disease) ICD Codes: I25.10 - Atherosclerotic heart disease of [place] coronary artery without angina pectoris Status: Chronic Plan: HX of CAD -resume home statin -HOLD home plavix due to anticoagulation (7) fen/ppx Status: Acute Plan: Fluids: PO hydration with fluid restriction Electrolytes: see plan above Nutrition: Regular diet, with fluid restriction as above DVT prophylaxis: SCDs, while Eliquis is on hold GI PPX: ranitidine due to steroid use (Helen Reyes MD, R3) Helen Reyes MD, R3 Feb 23, 2017 10:39 Po Willis MD Feb 23, 2017 14:14
[2017-02-23] MEDS ORDERED: PETROLEUM/SHARK LIVER OIL/PHENYLEPHRINE 60 GM TUBE RECTAL PRN (17:30)
--- NOTE | 2017-02-23 17:30 | HHI.FPPN ---
Addendum to progress note ADDENDUM Reason for addendum: Additonal documentation Additional information Received page from nurse stating some was concerned about facial swelling. Arrived at bedside for further evaluation of his son had left at this point. Patient reports that she had noted slight facial swelling last night with no associated difficulty swallowing, SOB. Does endorse mild bilateral jaw pain but not worsened with eating or talking. Patient also reports concerned about left arm bruising from multiple blood draws both no current bleeding. Finally patient is concerned about rectal irritation when wiping and constipation as she feels bloated. Did not have a bowel movement after last suppository. Wants to try enema. Declines rectal evaluation after reported rectal pain that is present only when wiping. She denies any blood. General: In no acute distress, resting comfortably in bed. Face swelling is not obviously noticeable Face: Mild point tenderness with palpation of bilateral jaws but with no other point tenderness including temporal area. No associated erythema. No pitting edema A/P: 81-year-old female admitted for hyponatremia hypertension. Now with new onset A. fib and anemia. * Facial swelling: Not objectively identified. No associated respiratory distress. No/low concern for allergic reaction. May be related to improvement of her hyponatremia. No associated symptoms to suggest temporal arteritis especially since symptoms are bilateral. Continue to monitor * Left arm bruising: Recommended ice to help with bruising. No signs of infection. * Constipation: We will try enema. Preparation H4 for surrounding skin irritation. (Pt decline rectal exam). Hemoccult it stool occurs * Extensively counsled to patient about the difficult position we are in, in regards to anticoagulation and low H&H. Patient does request for son to be updated: Juan Padilla [phone] Nurse Helen Reyes MD, R3 Feb 23, 2017 17:30
[2017-02-23 18:01] LABS: HEMATOCRIT 24.6 % (35.0-46.0); HEMOGLOBIN 8.4 GM/DL (11.6-15.3)
--- NOTE | 2017-02-23 19:36 | HHI.PR ---
Subjective Remarks ALERT NO SOB AT REST Objective GENERAL: SKIN: Warm and dry. HEAD: Atraumatic. Normocephalic. EYES: Pupils equal and round. No scleral icterus. No injection or drainage. ENT: No nasal bleeding or discharge. Mucous membranes pink and moist. NECK: Trachea midline. No JVD. CARDIOVASCULAR: Regular rate and rhythm. RESPIRATORY: No accessory muscle use. Clear to auscultation. Breath sounds equal bilaterally. GASTROINTESTINAL: Abdomen soft, non-tender, nondistended. Hepatic and splenic margins not palpable. MUSCULOSKELETAL: Extremities without clubbing, cyanosis, or edema. No obvious deformities. NEUROLOGICAL: Awake and alert. No obvious cranial nerve deficits. Motor grossly within normal limits. Five out of 5 muscle strength in the arms and legs. Normal speech. PSYCHIATRIC: Appropriate mood and affect; insight and judgment normal. Vital Signs Date Time Temp Pulse Resp B/P (MAP) Pulse Ox O2 Delivery O2 Flow Rate FiO2 02/23/17 15:36 97.8 105 19 146/64 (91) 95 02/23/17 11:31 97.6 94 19 136/42 (73) 96 02/23/17 08:48 95 21 02/23/17 07:42 96.9 85 19 121/55 (77) 94 02/23/17 04:20 96.9 88 20 108/79 (89) 95 02/23/17 00:25 96.7 113 19 135/69 (91) 97 02/22/17 20:30 96.2 111 19 131/77 (95) 97 02/22/17 20:22 97 21 02/22/17 20:00 97 Room Air I/O 02/22/17 02/22/17 02/22/17 02/23/17 02/23/17 02/23/17 07:00 15:00 23:00 07:00 15:00 23:00 Intake Total 1588 ml 400 ml 280 ml 120 ml 950 ml Output Total 325 ml 400 ml 250 ml 325 ml Balance 1263 ml 0 ml 30 ml -205 ml 950 ml Intake Oral 120 ml 400 ml 280 ml 120 ml 950 ml IV Total 1468 ml Output Urine Total 325 ml 400 ml 250 ml 325 ml # Voids 4 # Bowel Movements 0 0 0 Result Diagram: 02/23/17 1622 02/23/17 0642 Objective Remarks Vital Signs Date Time Temp Pulse Resp B/P (MAP) Pulse Ox O2 Delivery O2 Flow Rate FiO2 02/23/17 15:36 97.8 105 19 146/64 (91) 95 02/23/17 11:31 97.6 94 19 136/42 (73) 96 02/23/17 08:48 95 21 02/23/17 07:42 96.9 85 19 121/55 (77) 94 02/23/17 04:20 96.9 88 20 108/79 (89) 95 02/23/17 00:25 96.7 113 19 135/69 (91) 97 02/22/17 20:30 96.2 111 19 131/77 (95) 97 02/22/17 20:22 97 21 02/22/17 20:00 97 Room Air Assessment and Plan Assessment and Plan DONTE GUTIERREZ ANEMIA ONCOLOGY FOLLOWING PLAN O2 NEEDED BRONCHODILATOR THERAPY INCREASE ACTIVITY Jerardo Kurtz MD Feb 23, 2017 19:36
[2017-02-23] MEDS: ZOLPIDEM TARTRATE 5 MG TAB PO PRN (22:51)
[2017-02-24] VITALS (11 sets, daily range): BP systolic 98–161; BP diastolic 55–76; PULSE 74–137; RESP 18–20; TEMP 96.5–98.7; O2SAT 94–98
[2017-02-24] MEDS: DILTIAZEM-CD 180 MG CAP ER PO SCH ×2 (05:24→10:39)
[2017-02-24 06:46] LABS: HEMATOCRIT 25.2 % (35.0-46.0); HEMOGLOBIN 8.4 GM/DL (11.6-15.3)
[2017-02-24 07:06] LABS: BICARBONATE 24.8 MEQ/L (21.0-32.0); CALCIUM 8.6 MG/DL (8.5-10.1); CREATININE 0.75 MG/DL (0.50-1.00)
[2017-02-24] MEDS: RESP: ALBUTEROL 2.5 MG/IPRATROPIUM 0.5 MG NEB (SCH) NEB ×4 (08:00→20:55)
--- NOTE | 2017-02-24 08:56 | HHI.FPPN ---
Subjective Remarks Overnight patient had sustained tachycardia around 140s for about 30 minutes. Patient reports that she felt these palpitations during this time also endorses abdominal discomfort after receiving reported enema. Vital signs unremarkable except for pulse around 110s-120s. She also reports increase in shortness of breath and wheezing. Pulse ox has remained stable. Patient also reports increased generalized weakness. Denies chest pain or current symptoms of palpitations. Denies abdominal discomfort. Objective Vitals Vital Signs Date Time Temp Pulse Resp B/P (MAP) Pulse Ox O2 Delivery O2 Flow Rate FiO2 02/24/17 04:03 121 02/24/17 04:00 97.6 119 20 135/72 (93) 97 02/24/17 00:01 128 02/24/17 00:00 97.6 137 20 161/66 (97) 97 02/23/17 20:49 95 21 02/23/17 20:35 Room Air 02/23/17 20:00 119 02/23/17 20:00 97.5 118 20 149/94 (112) 98 02/23/17 15:36 97.8 105 19 146/64 (91) 95 02/23/17 11:31 97.6 94 19 136/42 (73) 96 I/O 02/23/17 02/23/17 02/23/17 02/24/17 02/24/17 02/24/17 07:00 15:00 23:00 07:00 15:00 23:00 Intake Total 120 ml 950 ml 240 ml Output Total 325 ml Balance -205 ml 950 ml 240 ml Intake Oral 120 ml 950 ml 240 ml Output Urine Total 325 ml # Voids 4 3 # Bowel Movements 0 2 Result Diagram: 02/24/17 0550 02/24/17 0550 Objective Remarks GEN: Well-developed, well-nourished patient. No acute distress. CV: Irregularly irregular rhythm, with mildly increased rate but without obvious murmurs. LUNGS: Audible wheezing and slightly labored. Slightly worsened coarse breath sounds bilaterally with wheezing. Able to speak in complete sentences. GI: Nondistended NEURO/PSYCH: Awake, alert. Appropriate insight and judgment. Normal speech A/P Assessment and Plan 81-year-old female with history of emphysema, CAD, HTN. Admitted for hyponatremia and hypertension. Developed new onset of afib and also found to have a GI bleed. Discharge Planning 1-2 days pending improvement of HR and determination of anticoagulation and GI bleed * PT/OT: Will need home health and the following equipment walker, shower chair , bedside commode. solomon Willis Problem List: (1) New onset a-fib ICD Codes: I48.91 - Unspecified atrial fibrillation Status: Acute Plan: New-onset A. fib. Patient is asymptomatic but continues to have tachycardia. [id number] is 4, high risk. -Patient's desire to prevent stroke and would like anticoagulation, will need to resume anticoagulation after GI evaluation. If GI thinks patient is stable and will not need a procedure, will resume anticoagulation. -Echo: EF of 65-70% mild to moderate mitral valve regurg and tricuspid regurg. Aortic sclerosis. Moderate pulmonary hypertension. -Diltazem to be converted to long acting 02/24 at 360mg daily -Eliquis for anticoagulation ($8 for patient at pharmacy) (currently on hold due to continued decrease of H&H Cardiology consulted: appreciate recommendations * Concerned about risk of intracranial hemorrhage with uncontrolled blood pressure. * agree with anticoagulation * diltiazem * follow H&H due to down trending hemoglobin * pt unable to tolerate amlodipine Hematology consulted by cardiology: appreciate recommendations * B12, iron profile, ferritin, LDH, haptoglobin ordered * Peripheral smear pending * risk management for anticoagulation will be be assess by cardiology. Pluses and minuses of warfarin vs Eliquis. (2) GI bleed ICD Codes: K92.2 - Gastrointestinal hemorrhage, unspecified Plan: Hx of anemia. Baseline appears to be around 10. Stable but hemoglobin has dropped to a low of 7.5. Hemoccult positive. No clinical signs of blood loss. -ferritin reassuring -retic count abnormally normal -iron studies, LDH, haptoglobin WNL -B12 elevated >2000 GI consulted: Appreciate recommendations Medications: * Protonix IV 12hr * cytotec 100mg QID for GI protection as well (3) Bronchial asthma ICD Codes: J45.909 - Unspecified asthma, uncomplicated Status: Chronic Plan: Initially improved respiratory status since admission. -PFTs ordered: Decreased flow rates. No evidence of airway obstruction. Possible airways restriction. Consider lung volumes -Echo is significant for pulmonary HTN * pulmonary consulted, appreciate recommendations: Bronchia asthma, follow up as outpatient. Increase physical activity and continue bronchodilator therapy -incentive spirometry Medications: * Albuterol and duoneb * Oral Prednisone 40mg daily to start 02/20/17-02/23 * Solu-Medrol 40 every 121 day. To be reassessed for continued therapy Imaging: * CXR: no acute disease * CTA: no PE, diffuse interstitial lung disease with ground glass opacity may present an early congestion, and no consolidations, mild cardiomegaly (4) Hyponatremia ICD Codes: E87.1 - Hyponatremia Status: Resolved Plan: Hyponatremia of 116 found on admission. Likely chronic in nature. No clear etiology at this time. No obvious medication effects or excessive alcohol use. Evaluation for SIADH performed but is negative. Na stable. -urine sodium <40 -continue with fluid restriction (800ml/day) -dc fluids 02/22/17 (5) Uncontrolled hypertension ICD Codes: I10 - Essential (primary) hypertension Status: Resolved Plan: Hx of HTN. Improved BP since admission -urine sodium and UA reassuring. -plasma renin normal, AM cortisol unremarkable Medications: * diltiazem to help with both afib and HTN * s/p hydralazine 10mg IV x1 in ED (6) CAD (coronary artery disease) ICD Codes: I25.10 - Atherosclerotic heart disease of [place] coronary artery without angina pectoris Status: Chronic Plan: HX of CAD -resume home statin -HOLD home plavix due to anticoagulation (7) fen/ppx Status: Acute Plan: Fluids: PO hydration with fluid restriction Electrolytes: see plan above Nutrition: Regular diet, with fluid restriction as above DVT prophylaxis: SCDs, while Eliquis is on hold GI PPX: PPI due to steroid use Helen Reyes MD, R3 Feb 24, 2017 08:56
[2017-02-24] MEDS: DOCUSATE SODIUM 50 MG/SENNA 8.6 MG TAB PO SCH ×2 (09:00→21:00)
[2017-02-24] MEDS: ATORVASTATIN 40 MG TAB PO SCH (10:40)
[2017-02-24] MEDS: SODIUM CHLORIDE 0.9% FLUSH 10 ML FLUSH IV FLUSH SCH ×2 (10:40→21:24)
[2017-02-24] MEDS: BUDESONIDE-FORMOTEROL 160/4.5 MCG INHALER INH SCH ×2 (10:42→22:24)
--- NOTE | 2017-02-24 10:45 | PD.CONS ---
HPI History of Present Illness This is a 81 year old F with past medical history significant for HTN, GERD, sleep apnea and CAD who presented to the emergency department six days ago with complaints of elevated blood pressure and decreased urine output. GI was consulted due to anemia and Hemoccult positive stool. Pt is known to our service and records will be obtained. She reports having EGD and colonoscopy last year and states both exams were normal. She has known history of anemia, reports she was on iron supplements at one point, she is unsure when or why she stopped taking them. Pt was receiving Eliquis, now on hold. GI symptoms include acid reflux, increasing in intensity and frequency since hospital admission. Denies nausea, vomiting, abdominal pain. Does report constipation, but received relief after getting Lactulose last night. Of note, pt is on narcotic pain medication. Denies BRBPR and black, tarry stool. H/H currently 8.4/25.2, normocytic. (Lianne Pang) PFSH Past Medical History HTN GERD Allergic Rhinitis COPD CAD Sleep apnea Past Surgical History Ovarian cyst removal Face lift Cataract surgery EGD Colonoscopy (Lianne Pang) Coded Allergies: No Known Allergies (Verified Adverse Reaction, Unknown, 02/18/17) Social History ETOH- states on holidays Quit smoking 40 years ago (Lianne Pang) Review of Systems Gastrointestinal: COMPLAINS OF: Constipation, Swelling of Abdomen, Heartburn, DENIES: Abdominal pain, Black stools, Bloody stools, Diarrhea, Nausea, Vomiting , Hematemesis (Lianne Pang) GI Exam Vitals I&O Vital Signs Date Time Temp Pulse Resp B/P (MAP) Pulse Ox O2 Delivery O2 Flow Rate FiO2 02/24/17 08:00 97.2 108 20 105/64 (78) 94 02/24/17 04:03 121 02/24/17 04:00 97.6 119 20 135/72 (93) 97 02/24/17 00:01 128 02/24/17 00:00 97.6 137 20 161/66 (97) 97 02/23/17 20:49 95 21 02/23/17 20:35 Room Air 02/23/17 20:00 119 02/23/17 20:00 97.5 118 20 149/94 (112) 98 02/23/17 15:36 97.8 105 19 146/64 (91) 95 02/23/17 11:31 97.6 94 19 136/42 (73) 96 I/O 02/23/17 02/23/17 02/23/17 02/24/17 02/24/17 02/24/17 07:00 15:00 23:00 07:00 15:00 23:00 Intake Total 120 ml 950 ml 240 ml Output Total 325 ml Balance -205 ml 950 ml 240 ml Intake Oral 120 ml 950 ml 240 ml Output Urine Total 325 ml # Voids 4 3 # Bowel Movements 0 2 Laboratory Test 02/23/17 16:22 02/24/17 05:50 Hemoglobin 8.4 GM/DL 8.4 GM/DL Hematocrit 24.6 % 25.2 % Blood Urea Nitrogen 24 MG/DL Creatinine 0.75 MG/DL Random Glucose 108 MG/DL Calcium Level 8.6 MG/DL Sodium Level 132 MEQ/L Potassium Level 3.5 MEQ/L Chloride Level 100 MEQ/L Carbon Dioxide Level 24.8 MEQ/L Anion Gap 7 MEQ/L Estimat Glomerular Filtration Rate 75 ML/MIN Date/Time Source Procedure Growth Status 02/24/17 03:14 Stool Stool Stool Occult Blood (ELIO) - Final HEMOCCULT POSITIVE Complete 02/18/17 12:00 Nasal Washing Influenza Types A,B Antigen (ELIO) - Final NEGATIVE FOR FLU A AND B ANTIGEN.... Complete Physical Examination HEENT: Pupils round and reactive to light; normocephalic; atraumatic; no jaundice. Throat is clear. NECK: Neck is supple, no JVD, no lymphadenopathy. CHEST: Chest is clear to auscultation and percussion. CARDIAC: Regular rate and rhythm with no murmur gallop or rubs. ABDOMEN: Soft, nondistended, nontender; no hepatosplenomegaly; bowel sounds are present in all four quadrants. EXTREMITIES: No clubbing, cyanosis, or edema. SKIN: Normal; no rash; no jaundice. DEPLOYMENT ENGINEER: No focal deficits; alert and oriented times three. (Lianne Pang) Assessment and Plan Plan Assessment: - Anemia- Hemoccult positive stool. H/H currently 8.4/25.2. Normocytic. Pt does report history of anemia and needed to take iron supplements. She is unsure when or why she stopped taking them. No obvious GIB. Denies BRBPR, black, tarry stools, vomiting. Onlyc complaint at this time is acid reflux and heartburn. Last EGD and colonoscopy last year by Dr. Willett, will review office records, pt states normal exam. Protonix. - Constipation- relieved last night after taking lactulose. Pt reports this is a chronic issue. Of note, she is on narcotic pain medication. Will add MiraLAX to current bowel regimen. Records obtained EGD/colonoscopy Mar 2016 --> Gastritis. Esophagitis. Diverticulosis. Hemorrhoids. Plan - EGD/colonoscopy Sunday - Obtain consents - Clear liquids diet Sunday - NPO after MN on Sunday - GoLYTELY prep - Iron studies - Vit B 12 and Folate - Monitor H/H - Transfuse as needed - Continue Protonix - Notify GI of any active bleeding - Further recommendations to follow based on results of above Pt has been seen and examined by myself and Dr. Willett and this note is written on her behalf (Lianne Pang) Physician Comments seen, examined agree with above ppi (Manuela Willett MD) Lianne Pang Feb 24, 2017 10:45 Manuela Willett MD Feb 24, 2017 19:06
[2017-02-24] MEDS: methylPREDNISolone SOD SUCC 40 MG/1 ML VIAL IV PUSH SCH ×2 (10:46→21:17)
[2017-02-24] MEDS: PANTOPRAZOLE SODIUM 40 MG VIAL IV PUSH SCH ×2 (10:46→21:17)
[2017-02-24] MEDS: MISOPROSTOL 100 MCG TAB PO SCH ×4 (10:56→21:17)
--- NOTE | 2017-02-24 12:10 | PD.CARD.PN ---
Subjective Subjective Remarks alert in nad Objective Medications Current Medications Medications (Trade) Dose Ordered Sig/Cori Route Start Time Stop Time Status Last Admin (NS Flush) 2 ml UNSCH PRN IV FLUSH 02/18/17 17:30 (NS Flush) 2 ml BID IV FLUSH 02/18/17 21:00 02/24/17 10:40 (Tylenol) 650 mg Q4H PRN PO 02/18/17 17:30 02/22/17 20:04 (Zofran Inj) 4 mg Q6H PRN IVP 02/18/17 17:30 (Narcan Inj) 0.4 mg UNSCH PRN IV PUSH 02/18/17 17:30 (Linda-Colace) 1 tab BID PO 02/18/17 21:00 02/23/17 20:35 (Milk Of Magnesia Liq) 30 ml Q12H PRN PO 02/18/17 17:30 02/20/17 20:36 (Senokot) 17.2 mg Q12H PRN PO 02/18/17 17:30 02/23/17 20:35 (Dulcolax Supp) 10 mg DAILY PRN RECTAL 02/18/17 17:30 02/21/17 06:38 (Lactulose Liq) 30 ml DAILY PRN PO 02/18/17 17:30 02/23/17 20:35 (Vasotec Inj) 1.25 mg Q6H PRN IV PUSH 02/19/17 13:45 (Albuterol Neb) 2.5 mg Q2HR NEB PRN INH 02/19/17 14:00 (Plavix) 75 mg DAILY PO 02/20/17 09:00 Future Hold 02/20/17 09:23 (Lipitor) 40 mg DAILY PO 02/20/17 09:00 02/24/17 10:40 (Symbicort 160-4.5 Mcg Inh) 2 puff Q12HR INH 02/19/17 21:00 02/24/17 10:42 (Pill Splitter) 1 ea UNSCH PRN OTHER 02/19/17 14:30 ([place] 5-325 Mg) 1 tab Q4H PRN PO 02/19/17 15:30 ([place] 7.5-325 Mg) 1 tab Q4H PRN PO 02/19/17 15:30 (Ambien) 5 mg HS PRN PO 02/20/17 21:00 02/23/17 22:51 (Duoneb Neb) 1 ampule Q6HR WHILE AWAKE NEB NEB 02/21/17 14:00 02/24/17 08:00 (Eliquis) 5 mg BID@1100,2300 PO 02/22/17 11:00 Future Hold 02/22/17 11:17 (Cardizem Cd) 360 mg DAILY PO 02/24/17 06:00 02/24/17 10:39 (Preparation H Oint) 1 applic Q6H PRN RECTAL 02/23/17 17:30 (SoluMEDROL INJ) 40 mg Q12HR IV PUSH 02/24/17 09:00 02/24/17 21:01 02/24/17 10:46 (Protonix Inj) 40 mg Q12H IV PUSH 02/24/17 09:00 02/24/17 10:46 (Cytotec) 100 mcg QID PO 02/24/17 09:00 02/24/17 10:56 (Colyte Liq) 4,000 ml ONCE ONCE PO 02/25/17 16:00 02/25/17 16:01 (Miralax) 17 gm DAILY PO 02/25/17 09:00 Vital Signs / I&O Vital Signs Date Time Temp Pulse Resp B/P (MAP) Pulse Ox O2 Delivery O2 Flow Rate FiO2 02/24/17 08:00 97.2 108 20 105/64 (78) 94 02/24/17 04:03 121 02/24/17 04:00 97.6 119 20 135/72 (93) 97 02/24/17 00:01 128 02/24/17 00:00 97.6 137 20 161/66 (97) 97 02/23/17 20:49 95 21 02/23/17 20:35 Room Air 02/23/17 20:00 119 02/23/17 20:00 97.5 118 20 149/94 (112) 98 02/23/17 15:36 97.8 105 19 146/64 (91) 95 I/O 02/23/17 02/23/17 02/23/17 02/24/17 02/24/17 02/24/17 07:00 15:00 23:00 07:00 15:00 23:00 Intake Total 120 ml 950 ml 240 ml Output Total 325 ml Balance -205 ml 950 ml 240 ml Intake Oral 120 ml 950 ml 240 ml Output Urine Total 325 ml # Voids 4 3 # Bowel Movements 0 2 Physical Exam GENERAL: SKIN: Warm and dry. HEAD: Normocephalic. EYES: No scleral icterus. No injection or drainage. NECK: Supple, trachea midline. No JVD or lymphadenopathy. CARDIOVASCULAR: Regular rate and rhythm without murmurs, gallops, or rubs. RESPIRATORY: Breath sounds equal bilaterally. No accessory muscle use. GASTROINTESTINAL: Abdomen soft, non-tender, nondistended. MUSCULOSKELETAL: No cyanosis, or edema. BACK: Nontender without obvious deformity. No CVA tenderness. Laboratory Laboratory Tests Test 02/23/17 16:22 02/24/17 05:50 Hemoglobin 8.4 GM/DL 8.4 GM/DL Hematocrit 24.6 % 25.2 % Blood Urea Nitrogen 24 MG/DL Creatinine 0.75 MG/DL Random Glucose 108 MG/DL Calcium Level 8.6 MG/DL Sodium Level 132 MEQ/L Potassium Level 3.5 MEQ/L Chloride Level 100 MEQ/L Carbon Dioxide Level 24.8 MEQ/L Anion Gap 7 MEQ/L Estimat Glomerular Filtration Rate 75 ML/MIN Assessment and Plan Problem List: (1) New onset a-fib ICD Codes: I48.91 - Unspecified atrial fibrillation Status: Acute (2) Hypertension Status: Chronic Assessment and Plan 1.) PAF - rate intermittently controlled partially due physiologically due to anemia, intolerant of norvasc, dc norvasc, increase cardizem 90 mg q6hr, lovenox held due to anemia, gib,and unstable hgb, f/u hematology consult for anemia and risk stratify for coumadin or noac Clayton Clark MD Feb 24, 2017 12:10
--- NOTE | 2017-02-24 12:10 | PD.ONC.PN ---
Subjective Subjective Remarks Afebrile overnight Patient reports being cold Denies pain States she is not looking forward to colonoscopy Objective Data Date Time Temp Pulse Resp B/P (MAP) Pulse Ox O2 Delivery O2 Flow Rate FiO2 02/24/17 08:00 97.2 108 20 105/64 (78) 94 02/24/17 04:03 121 02/24/17 04:00 97.6 119 20 135/72 (93) 97 02/24/17 00:01 128 02/24/17 00:00 97.6 137 20 161/66 (97) 97 02/23/17 20:49 95 21 02/23/17 20:35 Room Air 02/23/17 20:00 119 02/23/17 20:00 97.5 118 20 149/94 (112) 98 02/23/17 15:36 97.8 105 19 146/64 (91) 95 02/24/17 02/24/17 02/24/17 07:00 15:00 23:00 Intake Total 240 ml Balance 240 ml Result Diagram: 02/24/17 0550 02/24/17 0550 Laboratory Results Laboratory Tests Test 02/23/17 16:22 02/24/17 05:50 Hemoglobin 8.4 GM/DL 8.4 GM/DL Hematocrit 24.6 % 25.2 % Blood Urea Nitrogen 24 MG/DL Creatinine 0.75 MG/DL Random Glucose 108 MG/DL Calcium Level 8.6 MG/DL Sodium Level 132 MEQ/L Potassium Level 3.5 MEQ/L Chloride Level 100 MEQ/L Carbon Dioxide Level 24.8 MEQ/L Anion Gap 7 MEQ/L Estimat Glomerular Filtration Rate 75 ML/MIN Culture Results Microbiology Date/Time Source Procedure Growth Status 02/24/17 03:14 Stool Stool Stool Occult Blood (ELIO) - Final HEMOCCULT POSITIVE Complete Administered Medications Medications (Trade) Dose Ordered Sig/Cori Route PRN Reason Start Time Stop Time Status Last Admin Dose Admin Sodium Chloride (NS Flush) 2 ml BID IV FLUSH 02/18/17 21:00 02/24/17 10:40 Acetaminophen (Tylenol) 650 mg Q4H PRN PO TEMP > 100.4/pain 1-2 02/18/17 17:30 02/22/17 20:04 Senna/Docusate Sodium (Linda-Colace) 1 tab BID PO 02/18/17 21:00 02/23/17 20:35 Magnesium Hydroxide (Milk Of Magnesia Liq) 30 ml Q12H PRN PO Mild constipation 02/18/17 17:30 02/20/17 20:36 Sennosides (Senokot) 17.2 mg Q12H PRN PO Moderate constipation 02/18/17 17:30 02/23/17 20:35 Bisacodyl (Dulcolax Supp) 10 mg DAILY PRN RECTAL SEVERE CONSITIPATION 02/18/17 17:30 02/21/17 06:38 Lactulose (Lactulose Liq) 30 ml DAILY PRN PO SEVERE CONSITIPATION 02/18/17 17:30 02/23/17 20:35 Clopidogrel Bisulfate (Plavix) 75 mg DAILY PO 02/20/17 09:00 Future Hold 02/20/17 09:23 Atorvastatin Calcium (Lipitor) 40 mg DAILY PO 02/20/17 09:00 02/24/17 10:40 Budesonide/ Formoterol Fumarate (Symbicort 160-4.5 Mcg Inh) 2 puff Q12HR INH 02/19/17 21:00 02/24/17 10:42 Zolpidem Tartrate (Ambien) 5 mg HS PRN PO INSOMNIA 02/20/17 21:00 02/23/17 22:51 Albuterol/ Ipratropium (Duoneb Neb) 1 ampule Q6HR WHILE AWAKE NEB NEB 02/21/17 14:00 02/24/17 08:00 Apixaban (Eliquis) 5 mg BID@1100,2300 PO 02/22/17 11:00 Future Hold 02/22/17 11:17 Diltiazem HCl (Cardizem Cd) 360 mg DAILY PO 02/24/17 06:00 02/24/17 10:39 Methylprednisolone Sodium Succinate (SoluMEDROL INJ) 40 mg Q12HR IV PUSH 02/24/17 09:00 02/24/17 21:01 02/24/17 10:46 Pantoprazole Sodium (Protonix Inj) 40 mg Q12H IV PUSH 02/24/17 09:00 02/24/17 10:46 Misoprostol (Cytotec) 100 mcg QID PO 02/24/17 09:00 02/24/17 10:56 Objective Remarks GENERAL: Older female resting in bed talking on the phone on approach in no acute distress SKIN: Warm and dry. HEAD: Normocephalic. EYES: No injection or drainage. NECK: Supple, trachea midline. CARDIOVASCULAR: Regular rate and rhythm without murmurs. RESPIRATORY: Scattered wheezes posteriorly. Breathing unlabored at rest. GASTROINTESTINAL: Abdomen soft, non-tender, nondistended. EXTREMITIES: No cyanosis. ИРИНА hose to bilateral lower extremities MUSCULOSKELETAL: Adequate muscle tone. NEUROLOGICAL: No obvious focal deficit. Awake, alert, and oriented x3. Assessment/Plan Problem List: (1) Anemia Status: Chronic Plan: -- Hemoccult-positive -- GI consulted for possible scope -- B12 and iron replete (2) Afib ICD Codes: I48.91 - Unspecified atrial fibrillation Plan: -- Being followed by cardiology -- Patient was reportedly on Pradaxa prior to admission -- Anticoagulation on hold due to dropping hemoglobin Assessment 81-year-old female with history of chronic A. fib; hematology consulted for choice of oral anticoagulant in light of anemia Plan 1. Patient noted to be Hemoccult positive 2. Plan for scope on Sunday 3. Hold anticoagulation until results of colonoscopy 4. Monitor CBC Attending Statement The exam, history, and the medical decision-making described in the above note were completed with the assistance of the mid-level provider. I reviewed and agree with the findings presented. I attest that I had a [id number] encounter with the patient on the same day, and personally performed and documented my assessment and findings in the medical record anemia and afib Hb declining Hemoccult positive GI to scope on Sunday hold AC until GI source of bleeding addressed d/w rn o/n events reviewed Joana John Feb 24, 2017 12:10 Adiel Ferguson MD Feb 24, 2017 16:10
--- NOTE | 2017-02-24 12:24 | HHI.PR ---
Subjective Remarks Patient is lying in bed in NAD. On room air oxygen when seen. Patient states her wheezing is overall better. Objective Vital Signs Vital Signs Date Time Temp Pulse Resp B/P (MAP) Pulse Ox O2 Delivery O2 Flow Rate FiO2 02/24/17 08:00 97.2 108 20 105/64 (78) 94 02/24/17 04:03 121 02/24/17 04:00 97.6 119 20 135/72 (93) 97 02/24/17 00:01 128 02/24/17 00:00 97.6 137 20 161/66 (97) 97 02/23/17 20:49 95 21 02/23/17 20:35 Room Air 02/23/17 20:00 119 02/23/17 20:00 97.5 118 20 149/94 (112) 98 02/23/17 15:36 97.8 105 19 146/64 (91) 95 I/O 02/23/17 02/23/17 02/23/17 02/24/17 02/24/17 02/24/17 07:00 15:00 23:00 07:00 15:00 23:00 Intake Total 120 ml 950 ml 240 ml Output Total 325 ml Balance -205 ml 950 ml 240 ml Intake Oral 120 ml 950 ml 240 ml Output Urine Total 325 ml # Voids 4 3 # Bowel Movements 0 2 Result Diagram: 02/24/17 0550 02/24/17 0550 Other Results Last Impressions CT Angiography 02/18/17 1743 Signed Impressions: Service Date/Time: Saturday, February 18, 2017 18:24 - CONCLUSION: 1. No evidence of acute pulmonary embolism. 2. Diffuse interstitial lung disease with mild groundglass opacity. This may are present early congestion. 3. No evidence of consolidating airspace disease. 4. Mild cardiomegaly with coronary artery calcification. Bk Kelly MD Chest X-Ray 02/18/17 1144 Signed Impressions: Service Date/Time: Saturday, February 18, 2017 12:13 - CONCLUSION: 1. No acute cardiopulmonary disease. 2. Degenerative changes and scoliosis of the thoracolumbar spine. Marquis Mcghee MD Objective Remarks GENERAL: Patient is 81 yo lying in bed in NAD SKIN: Warm and dry. HEAD: Normocephalic. EYES: No scleral icterus. No injection or drainage. NECK: Supple, trachea midline. No JVD or lymphadenopathy. CARDIOVASCULAR: Regular rate and rhythm without murmurs, gallops, or rubs. RESPIRATORY: Breath sounds equal bilaterally. Few scattered wheezing and coarse BS GASTROINTESTINAL: Abdomen soft, non-tender, nondistended. MUSCULOSKELETAL: No cyanosis, or edema. BACK: Nontender without obvious deformity. No CVA tenderness. Neuro: Awake and alert A/P Assessment and Plan 1)Resp Insuff 2)COPD/Asthma 3)? ILD 4)Anemia 5)Mod Pulm HTN 6)Obesity, [place] 7)HTN 8)CAD PLAN Oxygen PRN keep sat >92% Bronchodilators(Duoneb, Symbicort) Continue with solumederol 40mg Q12 NIPPV PRN for resp distress PFT as outpatient Diurese as needed. Monitor BNP. Cards is following GI/DVT prophylaxis- per primary team. Paolo Walton MD Feb 24, 2017 12:24
[2017-02-24 13:53] LABS: IRON (FE) 63 MCG/DL (50-170)
[2017-02-24 14:18] LABS: % SATURATION IRON PROFILE 23.1 % (20-50); FERRITIN 200 NG/ML (8-252); TOTAL IRON BINDING CAPACITY 273 MCG/DL (250-450)
[2017-02-24 14:24] LABS: FOLATE GREATER THAN 20.0 NG/ML (3.1-17.5)
[2017-02-24] MEDS: ZOLPIDEM TARTRATE 5 MG TAB PO PRN (23:11)
[2017-02-25] VITALS (8 sets, daily range): BP systolic 102–165; BP diastolic 58–65; PULSE 78–124; RESP 18–20; TEMP 96.7–98.3; O2SAT 94–98
[2017-02-25] MEDS: RESP: ALBUTEROL 2.5 MG/IPRATROPIUM 0.5 MG NEB (SCH) NEB (08:00)
--- NOTE | 2017-02-25 09:17 | HHI.FPPN ---
Subjective Remarks No acute events overnight. Vital signs unremarkable. Pulse much improved this morning. Patient reports improved SOB. Denies chest pain, palpitations. Patient's biggest concern is getting hot tea this morning. Objective Vitals Vital Signs Date Time Temp Pulse Resp B/P (MAP) Pulse Ox O2 Delivery O2 Flow Rate FiO2 02/25/17 08:49 96 02/25/17 08:00 97.8 95 20 141/65 (90) 95 02/25/17 03:37 97.5 86 18 102/58 (73) 96 02/24/17 23:50 98.2 85 18 98/55 (69) 97 02/24/17 20:55 95 02/24/17 19:26 96.8 74 18 132/61 (84) 98 02/24/17 16:00 96.5 123 20 104/71 (82) 95 02/24/17 14:45 106 02/24/17 12:00 98.7 122 20 111/76 (88) 95 I/O 02/24/17 02/24/17 02/24/17 02/25/17 02/25/17 02/25/17 07:00 15:00 23:00 07:00 15:00 23:00 Intake Total 240 ml 480 ml 840 ml Balance 240 ml 480 ml 840 ml Intake Oral 240 ml 480 ml 840 ml # Voids 3 3 5 # Bowel Movements 2 0 Result Diagram: 02/24/17 0550 02/24/17 0550 Objective Remarks GEN: Well-developed, well-nourished patient. No acute distress. CV: Irregularly irregular rhythm, with good rate but without obvious murmurs. LUNGS: Mild/moderate coarse breath sounds bilaterally without wheezing. Much improved from yesterday. No accessory muscle use. Good air movement bilaterally. Able to speak in complete sentences. GI: Nondistended EXT: No LE edema or calf tenderness NEURO/PSYCH: Awake, alert. Appropriate insight and judgment. Normal speech A/P Assessment and Plan 81-year-old female with history of emphysema, CAD, HTN. Admitted for hyponatremia and hypertension. Developed new onset of afib and also found to have a GI bleed. Discharge Planning 1-2 days pending determination of anticoagulation and GI bleed * PT/OT: Will need home health and the following equipment walker, shower chair , bedside commode. * will update son per patient's request Juan Padilla [phone] solomon Willis Problem List: (1) New onset a-fib ICD Codes: I48.91 - Unspecified atrial fibrillation Status: Acute Plan: New-onset A. fib with improved rate control. [id number] is 4, high risk. -Patient's desire to prevent stroke and would like anticoagulation, will need to resume anticoagulation after GI evaluation. -Echo: EF of 65-70% mild to moderate mitral valve regurg and tricuspid regurg. Aortic sclerosis. Moderate pulmonary hypertension. -Diltazem 360mg daily -Eliquis for anticoagulation ($8 for patient at pharmacy) (currently on hold due to continued decrease of H&H) Cardiology consulted: appreciate recommendations * Concerned about risk of intracranial hemorrhage with uncontrolled blood pressure. * agree with anticoagulation * diltiazem * follow H&H due to down trending hemoglobin * pt unable to tolerate amlodipine Hematology consulted by cardiology: appreciate recommendations * B12, iron profile, ferritin, LDH, haptoglobin ordered * Peripheral smear pending * Hold anticoagulation until results of colonoscopy (2) GI bleed ICD Codes: K92.2 - Gastrointestinal hemorrhage, unspecified Status: Chronic Plan: Hx of anemia. Baseline appears to be around 10. Stable but hemoglobin has dropped to a low of 7.5. Hemoccult positive. No clinical signs of blood loss. -ferritin reassuring -retic count abnormally normal -iron studies, LDH, haptoglobin WNL -B12 elevated >2000 GI consulted: Appreciate recommendations * EGD/colonoscopy Sunday * continue protonix * notify GI of any active bleeding. Medications: * Protonix IV 12hr * cytotec 100mg QID for GI protection as well (3) Bronchial asthma ICD Codes: J45.909 - Unspecified asthma, uncomplicated Status: Chronic Plan: Initially improved respiratory status since admission. -PFTs ordered: Decreased flow rates. No evidence of airway obstruction. Possible airways restriction. Consider lung volumes -Echo is significant for pulmonary HTN Pulmonary consulted: appreciate recommendations * Increase physical activity and continue bronchodilator therapy. * PFT outpatient. * Repeat CXR * diurese zeng needed, monitor BNP * continue solumedrol -incentive spirometry Medications: * Albuterol and duoneb * Oral Prednisone 40mg daily to start 02/20/17-02/23 * Solu-Medrol 40 every 121 day. To be reassessed for continued therapy Imaging: * CXR: no acute disease * CTA: no PE, diffuse interstitial lung disease with ground glass opacity may present an early congestion, and no consolidations, mild cardiomegaly (4) Hyponatremia ICD Codes: E87.1 - Hyponatremia Status: Resolved Plan: Hyponatremia of 116 found on admission. Likely chronic in nature. No clear etiology at this time. No obvious medication effects or excessive alcohol use. Evaluation for SIADH performed but is negative. Na stable. -urine sodium <40 -continue with fluid restriction (800ml/day) -dc fluids 02/22/17 (5) Uncontrolled hypertension ICD Codes: I10 - Essential (primary) hypertension Status: Resolved Plan: Hx of HTN. Improved BP since admission -urine sodium and UA reassuring. -plasma renin normal, AM cortisol unremarkable Medications: * diltiazem to help with both afib and HTN * s/p hydralazine 10mg IV x1 in ED (6) CAD (coronary artery disease) ICD Codes: I25.10 - Atherosclerotic heart disease of [place] coronary artery without angina pectoris Status: Chronic Plan: HX of CAD -resume home statin -HOLD home plavix due to anticoagulation (7) fen/ppx Status: Acute Plan: Fluids: PO hydration with fluid restriction Electrolytes: monitor and replace as needed Nutrition: Clears, NPO after midnight for planned EGD/colonoscopy DVT prophylaxis: SCDs, while Eliquis is on hold GI PPX: PPI due to steroid use Helen Reyes MD, R3 Feb 25, 2017 09:17
--- NOTE | 2017-02-25 09:23 | HHI.PR ---
Subjective Remarks Patient is lying in bed in NAD. Afebrile. Objective Vital Signs Vital Signs Date Time Temp Pulse Resp B/P (MAP) Pulse Ox O2 Delivery O2 Flow Rate FiO2 02/25/17 08:49 96 02/25/17 08:00 97.8 95 20 141/65 (90) 95 02/25/17 03:37 97.5 86 18 102/58 (73) 96 02/24/17 23:50 98.2 85 18 98/55 (69) 97 02/24/17 20:55 95 02/24/17 19:26 96.8 74 18 132/61 (84) 98 02/24/17 16:00 96.5 123 20 104/71 (82) 95 02/24/17 14:45 106 02/24/17 12:00 98.7 122 20 111/76 (88) 95 I/O 02/24/17 02/24/17 02/24/17 02/25/17 02/25/17 02/25/17 07:00 15:00 23:00 07:00 15:00 23:00 Intake Total 240 ml 480 ml 840 ml Balance 240 ml 480 ml 840 ml Intake Oral 240 ml 480 ml 840 ml # Voids 3 3 5 # Bowel Movements 2 0 Result Diagram: 02/24/17 0550 02/24/17 0550 Other Results Last Impressions CT Angiography 02/18/17 1743 Signed Impressions: Service Date/Time: Saturday, February 18, 2017 18:24 - CONCLUSION: 1. No evidence of acute pulmonary embolism. 2. Diffuse interstitial lung disease with mild groundglass opacity. This may are present early congestion. 3. No evidence of consolidating airspace disease. 4. Mild cardiomegaly with coronary artery calcification. Bk Kelly MD Chest X-Ray 02/18/17 1144 Signed Impressions: Service Date/Time: Saturday, February 18, 2017 12:13 - CONCLUSION: 1. No acute cardiopulmonary disease. 2. Degenerative changes and scoliosis of the thoracolumbar spine. Marquis Mcghee MD Objective Remarks GENERAL: Patient is 81 yo lying in bed in NAD SKIN: Warm and dry. HEAD: Normocephalic. EYES: No scleral icterus. No injection or drainage. NECK: Supple, trachea midline. No JVD or lymphadenopathy. CARDIOVASCULAR: Regular rate and rhythm without murmurs, gallops, or rubs. RESPIRATORY: Breath sounds equal bilaterally. Few scattered wheezing and coarse BS GASTROINTESTINAL: Abdomen soft, non-tender, nondistended. MUSCULOSKELETAL: No cyanosis, or edema. BACK: Nontender without obvious deformity. No CVA tenderness. Neuro: Awake and alert A/P Assessment and Plan 1)Resp Insuff 2)COPD/Asthma 3)? ILD 4)Anemia 5)Mod Pulm HTN 6)Obesity, [place] 7)HTN 8)CAD PLAN Oxygen PRN keep sat >92% Bronchodilators(Duoneb, Symbicort) Continue with solumederol 40mg Q12 NIPPV PRN for resp distress PFT as outpatient Diurese as needed. Monitor BNP. Check CXR Cards is following GI/DVT prophylaxis- per primary team. Paolo Walton MD Feb 25, 2017 09:23
[2017-02-25 09:32] LABS: HEMATOCRIT 22.7 % (35.0-46.0); HEMOGLOBIN 7.8 GM/DL (11.6-15.3)
[2017-02-25 09:50] LABS: BICARBONATE 23.5 MEQ/L (21.0-32.0); CREATININE 0.93 MG/DL (0.50-1.00)
[2017-02-25] MEDS: MISOPROSTOL 100 MCG TAB PO SCH ×4 (10:26→21:43)
[2017-02-25] MEDS: PANTOPRAZOLE SODIUM 40 MG VIAL IV PUSH SCH ×2 (10:26→21:45)
[2017-02-25] MEDS: DOCUSATE SODIUM 50 MG/SENNA 8.6 MG TAB PO SCH ×2 (10:27→21:43)
[2017-02-25] MEDS: ATORVASTATIN 40 MG TAB PO SCH (10:27)
[2017-02-25] MEDS: POLYETHYLENE GLYCOL 17 GM PKG PO SCH (10:27)
[2017-02-25] MEDS: DILTIAZEM-CD 180 MG CAP ER PO SCH (10:27)
[2017-02-25] MEDS: methylPREDNISolone SOD SUCC 40 MG/1 ML VIAL IV PUSH SCH ×2 (10:27→21:44)
[2017-02-25] MEDS: BUDESONIDE-FORMOTEROL 160/4.5 MCG INHALER INH SCH ×2 (10:28→21:50)
[2017-02-25] MEDS: SODIUM CHLORIDE 0.9% FLUSH 10 ML FLUSH IV FLUSH SCH ×2 (10:28→21:52)
--- NOTE | 2017-02-25 11:05 | PD.CARD.PN ---
Subjective Subjective Remarks alert in nad Objective Medications Current Medications Medications (Trade) Dose Ordered Sig/Cori Route Start Time Stop Time Status Last Admin (NS Flush) 2 ml UNSCH PRN IV FLUSH 02/18/17 17:30 (NS Flush) 2 ml BID IV FLUSH 02/18/17 21:00 02/25/17 10:28 (Tylenol) 650 mg Q4H PRN PO 02/18/17 17:30 02/22/17 20:04 (Zofran Inj) 4 mg Q6H PRN IVP 02/18/17 17:30 (Narcan Inj) 0.4 mg UNSCH PRN IV PUSH 02/18/17 17:30 (Linda-Colace) 1 tab BID PO 02/18/17 21:00 02/25/17 10:27 (Milk Of Magnesia Liq) 30 ml Q12H PRN PO 02/18/17 17:30 02/20/17 20:36 (Senokot) 17.2 mg Q12H PRN PO 02/18/17 17:30 02/23/17 20:35 (Dulcolax Supp) 10 mg DAILY PRN RECTAL 02/18/17 17:30 02/21/17 06:38 (Lactulose Liq) 30 ml DAILY PRN PO 02/18/17 17:30 02/23/17 20:35 (Vasotec Inj) 1.25 mg Q6H PRN IV PUSH 02/19/17 13:45 (Albuterol Neb) 2.5 mg Q2HR NEB PRN INH 02/19/17 14:00 (Plavix) 75 mg DAILY PO 02/20/17 09:00 Future Hold 02/20/17 09:23 (Lipitor) 40 mg DAILY PO 02/20/17 09:00 02/25/17 10:27 (Symbicort 160-4.5 Mcg Inh) 2 puff Q12HR INH 02/19/17 21:00 02/25/17 10:28 (Pill Splitter) 1 ea UNSCH PRN OTHER 02/19/17 14:30 ([place] 5-325 Mg) 1 tab Q4H PRN PO 02/19/17 15:30 ([place] 7.5-325 Mg) 1 tab Q4H PRN PO 02/19/17 15:30 (Ambien) 5 mg HS PRN PO 02/20/17 21:00 02/24/17 23:11 (Duoneb Neb) 1 ampule Q6HR WHILE AWAKE NEB NEB 02/21/17 14:00 02/25/17 08:00 (Eliquis) 5 mg BID@1100,2300 PO 02/22/17 11:00 Future Hold 02/22/17 11:17 (Cardizem Cd) 360 mg DAILY PO 02/24/17 06:00 02/25/17 10:27 (Preparation H Oint) 1 applic Q6H PRN RECTAL 02/23/17 17:30 (Protonix Inj) 40 mg Q12H IV PUSH 02/24/17 09:00 02/25/17 10:26 (Cytotec) 100 mcg QID PO 02/24/17 09:00 02/25/17 10:26 (Colyte Liq) 4,000 ml ONCE ONCE PO 02/25/17 16:00 02/25/17 16:01 (Miralax) 17 gm DAILY PO 02/25/17 09:00 02/25/17 10:27 (SoluMEDROL INJ) 40 mg Q12HR IV PUSH 02/25/17 09:00 02/25/17 10:27 Vital Signs / I&O Vital Signs Date Time Temp Pulse Resp B/P (MAP) Pulse Ox O2 Delivery O2 Flow Rate FiO2 02/25/17 08:49 96 02/25/17 08:00 97.8 95 20 141/65 (90) 95 02/25/17 03:37 97.5 86 18 102/58 (73) 96 02/24/17 23:50 98.2 85 18 98/55 (69) 97 02/24/17 20:55 95 02/24/17 19:26 96.8 74 18 132/61 (84) 98 02/24/17 16:00 96.5 123 20 104/71 (82) 95 02/24/17 14:45 106 02/24/17 12:00 98.7 122 20 111/76 (88) 95 I/O 02/24/17 02/24/17 02/24/17 02/25/17 02/25/17 02/25/17 07:00 15:00 23:00 07:00 15:00 23:00 Intake Total 240 ml 480 ml 840 ml Balance 240 ml 480 ml 840 ml Intake Oral 240 ml 480 ml 840 ml # Voids 3 3 5 # Bowel Movements 2 0 Physical Exam GENERAL: SKIN: Warm and dry. HEAD: Normocephalic. EYES: No scleral icterus. No injection or drainage. NECK: Supple, trachea midline. No JVD or lymphadenopathy. CARDIOVASCULAR: Regular rate and rhythm without murmurs, gallops, or rubs. RESPIRATORY: Breath sounds equal bilaterally. No accessory muscle use. GASTROINTESTINAL: Abdomen soft, non-tender, nondistended. MUSCULOSKELETAL: No cyanosis, or edema. BACK: Nontender without obvious deformity. No CVA tenderness. Laboratory Laboratory Tests Test 02/25/17 08:20 Hemoglobin 7.8 GM/DL Hematocrit 22.7 % Blood Urea Nitrogen 26 MG/DL Creatinine 0.93 MG/DL Random Glucose 124 MG/DL Calcium Level 8.0 MG/DL Sodium Level 130 MEQ/L Potassium Level 3.7 MEQ/L Chloride Level 96 MEQ/L Carbon Dioxide Level 23.5 MEQ/L Anion Gap 11 MEQ/L Estimat Glomerular Filtration Rate 58 ML/MIN Assessment and Plan Problem List: (1) New onset a-fib ICD Codes: I48.91 - Unspecified atrial fibrillation Status: Acute (2) Hypertension Status: Chronic Assessment and Plan 1.) PAF - rate intermittently controlled partially due physiologically due to anemia, intolerant of norvasc, dc norvasc, increase cardizem 90 mg q6hr, lovenox held due to anemia, gib,and unstable hgb, f/u hematology consult for anemia and risk stratify for coumadin or noac Clayton Clark MD Feb 25, 2017 11:05
--- NOTE | 2017-02-25 13:11 | HHI.GIFU ---
Subjective Remarks Pt resting in bed, in no apparent distress. No GI complaints at this time. Currently on clear liquids for procedure tomorrow. (Lianne Pang) Objective Vitals I&O Vital Signs Date Time Temp Pulse Resp B/P (MAP) Pulse Ox O2 Delivery O2 Flow Rate FiO2 02/25/17 08:49 96 02/25/17 08:00 97.8 95 20 141/65 (90) 95 02/25/17 03:37 97.5 86 18 102/58 (73) 96 02/24/17 23:50 98.2 85 18 98/55 (69) 97 02/24/17 20:55 95 02/24/17 19:26 96.8 74 18 132/61 (84) 98 02/24/17 16:00 96.5 123 20 104/71 (82) 95 02/24/17 14:45 106 I/O 02/24/17 02/24/17 02/24/17 02/25/17 02/25/17 02/25/17 06:59 14:59 22:59 06:59 14:59 22:59 Intake Total 240 ml 480 ml 840 ml Balance 240 ml 480 ml 840 ml Intake Oral 240 ml 480 ml 840 ml # Voids 3 3 5 # Bowel Movements 2 0 Laboratory Laboratory Tests Test 02/25/17 08:20 Hemoglobin 7.8 Hematocrit 22.7 Blood Urea Nitrogen 26 Creatinine 0.93 Random Glucose 124 Calcium Level 8.0 Sodium Level 130 Potassium Level 3.7 Chloride Level 96 Carbon Dioxide Level 23.5 Anion Gap 11 Estimat Glomerular Filtration Rate 58 Date/Time Source Procedure Growth Status 02/24/17 03:14 Stool Stool Stool Occult Blood (ELIO) - Final HEMOCCULT POSITIVE Complete 02/18/17 12:00 Nasal Washing Influenza Types A,B Antigen (ELIO) - Final NEGATIVE FOR FLU A AND B ANTIGEN.... Complete Imaging Last Impressions CT Angiography 02/18/17 6483 Signed Impressions: Service Date/Time: Saturday, February 18, 2017 18:24 - CONCLUSION: 1. No evidence of acute pulmonary embolism. 2. Diffuse interstitial lung disease with mild groundglass opacity. This may are present early congestion. 3. No evidence of consolidating airspace disease. 4. Mild cardiomegaly with coronary artery calcification. Bk Kelly MD Chest X-Ray 02/18/17 1144 Signed Impressions: Service Date/Time: Saturday, February 18, 2017 12:13 - CONCLUSION: 1. No acute cardiopulmonary disease. 2. Degenerative changes and scoliosis of the thoracolumbar spine. Marquis Mcghee MD Physical Exam HEENT:Normocephalic; atraumatic CHEST: Even/unlabored CARDIAC: RRR ABDOMEN: Soft, nondistended, nontender; bowel sounds active EXTREMITIES: No clubbing, cyanosis, or edema. SKIN: Normal; no rash; no jaundice. TOBACCO GRADER: No focal deficits; alert and oriented times three. (Lianne Pang) Assessment and Plan Plan Assessment: - Anemia- Hemoccult positive stool. H/H currently 8.4/25.2. Normocytic. Pt does report history of anemia and needed to take iron supplements. She is unsure when or why she stopped taking them. No obvious GIB. Denies BRBPR, black, tarry stools, vomiting. Onlyc complaint at this time is acid reflux and heartburn. Last EGD and colonoscopy last year by Dr. Willett, will review office records, pt states normal exam. Protonix. - Constipation- relieved last night after taking lactulose. Pt reports this is a chronic issue. Of note, she is on narcotic pain medication. Will add MiraLAX to current bowel regimen. (02/25) Pt currently on clear liquids for procedure tomorrow. No complaints at this time. H/H now 7.8/22.7. Iron panel normal. Serum Vit B 12 elevated. Serum folate elvated. No obvious GIB. Will proceed with EGD/colonoscopy tomorrow. Records obtained EGD/colonoscopy Mar 2016 --> Gastritis. Esophagitis. Diverticulosis. Hemorrhoids. Plan - EGD/colonoscopy tomorrow - Obtain consents - Clear liquids diet today - NPO after MN - GoLYTELY prep - Monitor H/H - Transfuse as needed - Continue Protonix - Notify GI of any active bleeding - Further recommendations to follow based on results of above Pt has been seen and examined by myself and Dr. Willett and this note is written on her behalf (Lianne Pang) Lianne Pang Feb 25, 2017 13:10 Manuela Willett MD Feb 25, 2017 18:37
[2017-02-25] MEDS ORDERED: PEG (High)/E-LYTE SOLN 4000 ML BTL PO ONE (16:00)
[2017-02-25] MEDS: RESP: ALBUTEROL 2.5 MG/3 ML NEB (PRN) INH (20:19)
[2017-02-26] VITALS (7 sets, daily range): BP systolic 110–162; BP diastolic 57–69; PULSE 86–130; RESP 18; TEMP 96.3–97.2; O2SAT 94–97
[2017-02-26] MEDS ORDERED: CHLORHEXIDINE GLUCONATE 2 % 1 PACK (2 CLOTHS) TOPICAL PRN (00:30)
[2017-02-26] MEDS ORDERED: LACTATED RINGER'S 1000 ML IV PRN (00:30)
[2017-02-26] MEDS ORDERED: POVIDONE IODINE 5% (ANTISEPSIS KIT) 4 APPLICATIONS EACH NARE PRN (00:30)
[2017-02-26 07:19] LABS: BICARBONATE 23.4 MEQ/L (21.0-32.0); CALCIUM 7.8 MG/DL (8.5-10.1); CREATININE 0.99 MG/DL (0.50-1.00)
--- NOTE | 2017-02-26 07:20 | RADRPT ---
EXAM DATE/TIME: 02/26/2017 05:43 [facility] COMPARISON: CHEST SINGLE AP, February 18, 2017, 12:13. INDICATIONS : Very short of breath, no chest pain, evaluate COPD MEDICAL HISTORY : Chronic obstructive pulmonary disease. SURGICAL HISTORY : None. ENCOUNTER: Subsequent ACUITY: 2 days PAIN SCORE: 0/10 LOCATION: Bilateral chest FINDINGS: A single view of the chest demonstrates the lungs to be symmetrically aerated without evidence of mas s, infiltrate or effusion. The cardiomediastinal contours are unremarkable. Osseous structures are intact. CONCLUSION: No acute disease. No significant change has occurred. Escobar Vidal MD on February 26, 2017 at 7:18 Board Certified Radiologist. This report was verified electronically.
[2017-02-26 07:35] LABS: HEMATOCRIT 22.8 % (35.0-46.0)
[2017-02-26] MEDS: ATORVASTATIN 40 MG TAB PO SCH (08:54)
[2017-02-26] MEDS: DILTIAZEM-CD 180 MG CAP ER PO SCH (08:54)
[2017-02-26] MEDS: MISOPROSTOL 100 MCG TAB PO SCH ×4 (08:54→21:15)
[2017-02-26] MEDS: SODIUM CHLORIDE 0.9% FLUSH 10 ML FLUSH IV FLUSH SCH ×2 (08:55→21:16)
[2017-02-26] MEDS: PANTOPRAZOLE SODIUM 40 MG VIAL IV PUSH SCH ×2 (08:55→21:15)
[2017-02-26] MEDS: BUDESONIDE-FORMOTEROL 160/4.5 MCG INHALER INH SCH ×2 (08:55→21:19)
[2017-02-26] MEDS: methylPREDNISolone SOD SUCC 40 MG/1 ML VIAL IV PUSH SCH ×2 (08:55→21:15)
[2017-02-26] MEDS: POLYETHYLENE GLYCOL 17 GM PKG PO SCH (08:56)
[2017-02-26] MEDS: DOCUSATE SODIUM 50 MG/SENNA 8.6 MG TAB PO SCH ×2 (08:56→21:15)
[2017-02-26] MEDS ORDERED: POTASSIUM CHLORIDE 20 MEQ CONTROLLED RELEASE TAB PO ONE (09:30)
--- NOTE | 2017-02-26 10:04 | HHI.FPPN ---
Subjective Remarks No acute events overnight. Vital signs unremarkable except for continued tachycardia. Patient remains asymptomatic. Endorses improved SOB. No acute concerns today. (Helen Reyes MD, R3) Objective Vitals Vital Signs Date Time Temp Pulse Resp B/P (MAP) Pulse Ox O2 Delivery O2 Flow Rate FiO2 02/26/17 09:39 126 02/26/17 08:00 96.3 110 18 110/57 (74) 96 02/26/17 07:36 Room Air 02/25/17 20:20 98 Nasal Cannula 2.00 02/25/17 20:13 96.7 78 18 165/63 (97) 98 02/25/17 16:00 98.3 124 20 146/62 (90) 96 02/25/17 15:03 114 02/25/17 12:00 96.9 120 20 119/59 (79) 94 I/O 02/25/17 02/25/17 02/25/17 02/26/17 02/26/17 02/26/17 07:00 15:00 23:00 07:00 15:00 23:00 Intake Total 840 ml 480 ml 720 ml 480 ml Balance 840 ml 480 ml 720 ml 480 ml Intake Oral 840 ml 480 ml 720 ml 480 ml # Voids 5 3 4 4 # Bowel Movements 0 0 3 (Helen Reyes MD, R3) Result Diagram: 02/26/17 0601 02/26/17 0601 Objective Remarks GEN: Well-developed, well-nourished patient. No acute distress. CV: Irregularly irregular rhythm, with mild tachycardia but without obvious murmurs. LUNGS: Mild coarse breath sounds bilaterally without wheezing. Continues to improve.. No accessory muscle use. Good air movement bilaterally. Able to speak in complete sentences. GI: Nondistended EXT: 1+ pitting edema bilaterally. No calf tenderness. NEURO/PSYCH: Awake, alert. Appropriate insight and judgment. Normal speech (Helen Reyes MD, R3) A/P Assessment and Plan 81-year-old female with history of emphysema, CAD, HTN. Admitted for hyponatremia and hypertension. Developed new onset of afib and also found to have a GI bleed. Discharge Planning 1-2 days pending determination of anticoagulation and GI bleed * PT/OT: Will need home health and the following equipment walker, shower chair , bedside commode. * will update son per patient's request Juan Padilla [phone] Dr. Alaniz ([facility], R[facility]) Attending Attestation Patient seen and examined. Case reviewed and discussed with the resident team. Agree with plan of care as discussed with me and documented in the resident note. going for endoscopy/colonoscopy to be sure she can take anticoagulation (Liyah Alaniz MD) Problem List: (1) New onset a-fib ICD Codes: I48.91 - Unspecified atrial fibrillation Status: Acute Plan: New-onset A. fib with improved rate control. [id number] is 4, high risk. -Patient's desire to prevent stroke and would like anticoagulation, will need to resume anticoagulation after GI evaluation. -Echo: EF of 65-70% mild to moderate mitral valve regurg and tricuspid regurg. Aortic sclerosis. Moderate pulmonary hypertension. -Diltazem 360mg daily -Eliquis for anticoagulation ($8 for patient at pharmacy) (currently on hold due to continued decrease of H&H) Cardiology consulted: appreciate recommendations * rate intermittently controlled partially due physiologically due to anemia * Concerned about risk of intracranial hemorrhage with uncontrolled blood pressure. * agree with anticoagulation * diltiazem * follow H&H due to down trending hemoglobin * pt unable to tolerate amlodipine Hematology consulted by cardiology: appreciate recommendations * B12, iron profile, ferritin, LDH, haptoglobin ordered * Peripheral smear pending * Hold anticoagulation until results of colonoscopy (2) GI bleed ICD Codes: K92.2 - Gastrointestinal hemorrhage, unspecified Status: Chronic Plan: Hx of anemia. Baseline appears to be around 10. Stable but hemoglobin has dropped to a low of 7.5. Hemoccult positive. No clinical signs of blood loss. -ferritin reassuring -retic count abnormally normal -iron studies, LDH, haptoglobin WNL -B12 elevated >2000 GI consulted: Appreciate recommendations * EGD/colonoscopy Sunday * continue protonix * notify GI of any active bleeding. Medications: * Protonix IV 12hr * cytotec 100mg QID for GI protection as well (3) Bronchial asthma ICD Codes: J45.909 - Unspecified asthma, uncomplicated Status: Chronic Plan: Initially improved respiratory status since admission. -PFTs ordered: Decreased flow rates. No evidence of airway obstruction. Possible airways restriction. Consider lung volumes -Echo is significant for pulmonary HTN Pulmonary consulted: appreciate recommendations * Increase physical activity and continue bronchodilator therapy. * PFT outpatient. * Repeat CXR unremarkable * diurese zeng needed, monitor BNP * continue solumedrol -incentive spirometry Medications: * Albuterol and duoneb * Oral Prednisone 40mg daily to start 02/20/17-02/23 * Solu-Medrol 40 q12 (02/24-02/26). To be reassessed for continued therapy * Resume oral prednison 40mg dialy 02/27 Imaging: * Repeat CXR unremarkable * CXR: no acute disease * CTA: no PE, diffuse interstitial lung disease with ground glass opacity may present an early congestion, and no consolidations, mild cardiomegaly (4) Hyponatremia ICD Codes: E87.1 - Hyponatremia Status: Resolved Plan: Hyponatremia of 116 found on admission. Likely chronic in nature. No clear etiology at this time. No obvious medication effects or excessive alcohol use. Evaluation for SIADH performed but is negative. Na stable. -urine sodium <40 -continue with fluid restriction (800ml/day) -dc fluids 02/22/17 (5) Uncontrolled hypertension ICD Codes: I10 - Essential (primary) hypertension Status: Resolved Plan: Hx of HTN. Improved BP since admission -urine sodium and UA reassuring. -plasma renin normal, AM cortisol unremarkable Medications: * diltiazem to help with both afib and HTN * s/p hydralazine 10mg IV x1 in ED (6) CAD (coronary artery disease) ICD Codes: I25.10 - Atherosclerotic heart disease of [place] coronary artery without angina pectoris Status: Chronic Plan: HX of CAD -resume home statin -HOLD home plavix due to anticoagulation (7) fen/ppx Status: Acute Plan: Fluids: PO hydration with fluid restriction Electrolytes: monitor and replace as needed. Replaced with 40KCL toady Nutrition: Clears, NPO after midnight for planned EGD/colonoscopy DVT prophylaxis: SCDs, while Eliquis is on hold GI PPX: PPI due to steroid use (Helen Reyes MD, R3) Problem Qualifiers (1) Bronchial asthma: Helen Reyes MD, R3 Feb 26, 2017 10:04 Liyah Alaniz MD Feb 27, 2017 14:23
[2017-02-26] MEDS ORDERED: LIDOCAINE HCL 1% PF 5 ML SYRINGE OTHER ONE (12:00)
[2017-02-26] MEDS ORDERED: PROPOFOL 200 MG/20 ML AMP IV ONE (12:00)
--- NOTE | 2017-02-26 15:19 | PD.PROCEDR ---
GI Procedure REFERRING PHYSICIAN Dr. Martell PROCEDURE PERFORMED EGD with biopsy followed by a colonoscopy with biopsy INDICATION FOR PROCEDURE Anemia, guaiac positive stools, constipation PROCEDURE: The procedure, risks and benefits were discussed with Ms. Perea and informed consent was obtained. Anesthesia sedated her with Diprivan. She was placed in the left lateral decubitus position. EGD: The Pentax videoscope was introduced through the oropharynx and advanced to the second portion of the duodenum under direct visualization. Retroflexion was performed in the stomach. FINDINGS: The esophagus this appeared to be unremarkable with normal limits The stomach there was a small hiatal hernia otherwise unremarkable The duodenum this appeared to be normal but random biopsies were taken to rule out celiac Colonoscopy: The Pentax videoscope was introduced through the rectum and advanced to cecum where the ileocecal valve and appendiceal orifice were identified. Retroflexion was performed in the rectum. Colonic prep was poor FINDINGS: Colonic withdrawal time at about 6 minutes as the scope was slowly withdrawn colonic mucosa was carefully inspected the patient was noted to have some superficial ulcerations with erythema and friability in the distal transverse colon splenic flexure and descending colon most likely representing ischemic colitis this was biopsied otherwise colonic evaluation was unremarkable although limited by lots of stool retroflexion was not performed today but rectal examination otherwise unremarkable ESTIMATED BLOOD LOSS: None SPECIMENS REMOVED: Duodenal and colonic biopsies COMPLICATIONS: None IMPRESSION: Hiatal hernia Ischemic colitis Incomplete colonoscopy PLAN: Await biopsies Continue with current supportive care Monitor labs and transfuse if needed Okay to use anticoagulation if needed Follow-up with GI post discharge Colonoscopy in 3 months Brandon Batres MD Feb 26, 2017 15:19
--- NOTE | 2017-02-26 15:58 | PD.CARD.PN ---
Subjective Subjective Remarks alert in nad, in OR prepping for endoscopy Objective Medications Current Medications Medications (Trade) Dose Ordered Sig/Cori Route Start Time Stop Time Status Last Admin (NS Flush) 2 ml UNSCH PRN IV FLUSH 02/18/17 17:30 (NS Flush) 2 ml BID IV FLUSH 02/18/17 21:00 02/26/17 08:55 (Tylenol) 650 mg Q4H PRN PO 02/18/17 17:30 02/22/17 20:04 (Zofran Inj) 4 mg Q6H PRN IVP 02/18/17 17:30 (Narcan Inj) 0.4 mg UNSCH PRN IV PUSH 02/18/17 17:30 (Linda-Colace) 1 tab BID PO 02/18/17 21:00 02/25/17 21:43 (Milk Of Magnesia Liq) 30 ml Q12H PRN PO 02/18/17 17:30 02/20/17 20:36 (Senokot) 17.2 mg Q12H PRN PO 02/18/17 17:30 02/23/17 20:35 (Dulcolax Supp) 10 mg DAILY PRN RECTAL 02/18/17 17:30 02/21/17 06:38 (Lactulose Liq) 30 ml DAILY PRN PO 02/18/17 17:30 02/23/17 20:35 (Vasotec Inj) 1.25 mg Q6H PRN IV PUSH 02/19/17 13:45 (Albuterol Neb) 2.5 mg Q2HR NEB PRN INH 02/19/17 14:00 02/25/17 20:19 (Plavix) 75 mg DAILY PO 02/20/17 09:00 Future Hold 02/20/17 09:23 (Lipitor) 40 mg DAILY PO 02/20/17 09:00 02/26/17 08:54 (Symbicort 160-4.5 Mcg Inh) 2 puff Q12HR INH 02/19/17 21:00 02/26/17 08:55 (Pill Splitter) 1 ea UNSCH PRN OTHER 02/19/17 14:30 ([place] 5-325 Mg) 1 tab Q4H PRN PO 02/19/17 15:30 ([place] 7.5-325 Mg) 1 tab Q4H PRN PO 02/19/17 15:30 (Ambien) 5 mg HS PRN PO 02/20/17 21:00 02/24/17 23:11 (Eliquis) 5 mg BID@1100,2300 PO 02/22/17 11:00 Future Hold 02/22/17 11:17 (Cardizem Cd) 360 mg DAILY PO 02/24/17 06:00 02/26/17 08:54 (Preparation H Oint) 1 applic Q6H PRN RECTAL 02/23/17 17:30 (Protonix Inj) 40 mg Q12H IV PUSH 02/24/17 09:00 02/26/17 08:55 (Cytotec) 100 mcg QID PO 02/24/17 09:00 02/26/17 08:54 (Miralax) 17 gm DAILY PO 02/25/17 09:00 02/25/17 10:27 (SoluMEDROL INJ) 40 mg Q12HR IV PUSH 02/25/17 09:00 02/27/17 00:00 02/26/17 08:55 Lactated Ringer's 1,000 ml @ 30 mls/hr Q24H PRN IV 02/26/17 00:30 03/01/17 00:29 02/26/17 12:28 (Betadine 5% Antisepsis Kit) 1 applic SHRIMP PACKER PRN EACH NARE 02/26/17 00:30 03/01/17 00:29 (Chlorhexidine 2% Cloth) 3 pack SHRIMP PACKER PRN TOPICAL 02/26/17 00:30 03/01/17 00:29 (Deltasone) 40 mg DAILY PO 02/27/17 09:00 Vital Signs / I&O Vital Signs Date Time Temp Pulse Resp B/P (MAP) Pulse Ox O2 Delivery O2 Flow Rate FiO2 02/26/17 15:14 97.9 105 18 129/68 (88) 94 02/26/17 12:00 97.2 110 18 135/69 (91) 97 02/26/17 09:39 126 02/26/17 08:00 96.3 110 18 110/57 (74) 96 02/26/17 07:36 Room Air 02/25/17 20:20 98 Nasal Cannula 2.00 02/25/17 20:13 96.7 78 18 165/63 (97) 98 02/25/17 16:00 98.3 124 20 146/62 (90) 96 I/O 02/25/17 02/25/17 02/25/17 02/26/17 02/26/17 02/26/17 07:00 15:00 23:00 07:00 15:00 23:00 Intake Total 840 ml 480 ml 720 ml 480 ml 250 ml Balance 840 ml 480 ml 720 ml 480 ml 250 ml Intake Oral 840 ml 480 ml 720 ml 480 ml Other 250 ml # Voids 5 3 4 4 3 # Bowel Movements 0 0 3 2 Physical Exam GENERAL: SKIN: Warm and dry. HEAD: Normocephalic. EYES: No scleral icterus. No injection or drainage. NECK: Supple, trachea midline. No JVD or lymphadenopathy. CARDIOVASCULAR: Regular rate and rhythm without murmurs, gallops, or rubs. RESPIRATORY: Breath sounds equal bilaterally. No accessory muscle use. GASTROINTESTINAL: Abdomen soft, non-tender, nondistended. MUSCULOSKELETAL: No cyanosis, or edema. BACK: Nontender without obvious deformity. No CVA tenderness. Laboratory Laboratory Tests Test 02/26/17 06:01 Hemoglobin 8.0 GM/DL Hematocrit 22.8 % Blood Urea Nitrogen 33 MG/DL Creatinine 0.99 MG/DL Random Glucose 122 MG/DL Calcium Level 7.8 MG/DL Sodium Level 133 MEQ/L Potassium Level 3.1 MEQ/L Chloride Level 96 MEQ/L Carbon Dioxide Level 23.4 MEQ/L Anion Gap 14 MEQ/L Estimat Glomerular Filtration Rate 54 ML/MIN B-Type Natriuretic Peptide 306 PG/ML Imaging Last 24 hours Impressions Chest X-Ray 02/26/17 0600 Signed Impressions: Service Date/Time: Sunday, February 26, 2017 05:43 - CONCLUSION: No acute disease. No significant change has occurred. Escobar Vidal MD Assessment and Plan Problem List: (1) New onset a-fib ICD Codes: I48.91 - Unspecified atrial fibrillation Status: Acute (2) Hypertension Status: Chronic Assessment and Plan 1.) PAF - rate intermittently controlled partially due physiologically due to anemia, intolerant of norvasc, dc norvasc, increase cardizem 90 mg q6hr, lovenox held due to anemia, gib,and unstable hgb, f/u hematology consult for anemia and risk stratify for coumadin or noac; f/u endoscopy results Clayton Clark MD Feb 26, 2017 15:58
--- NOTE | 2017-02-26 18:45 | HHI.PR ---
Subjective Remarks ALERT NO SOB AT REST Objective Vital Signs Date Time Temp Pulse Resp B/P (MAP) Pulse Ox O2 Delivery O2 Flow Rate FiO2 02/26/17 17:04 94 Nasal Cannula 2.00 02/26/17 16:00 96.3 86 18 138/64 (88) 95 02/26/17 15:14 97.9 105 18 129/68 (88) 94 02/26/17 12:00 97.2 110 18 135/69 (91) 97 02/26/17 09:39 126 02/26/17 08:00 96.3 110 18 110/57 (74) 96 02/26/17 07:36 Room Air 02/25/17 20:20 98 Nasal Cannula 2.00 02/25/17 20:13 96.7 78 18 165/63 (97) 98 I/O 02/25/17 02/25/17 02/25/17 02/26/17 02/26/17 02/26/17 07:00 15:00 23:00 07:00 15:00 23:00 Intake Total 840 ml 480 ml 720 ml 480 ml 250 ml Balance 840 ml 480 ml 720 ml 480 ml 250 ml Intake Oral 840 ml 480 ml 720 ml 480 ml Other 250 ml # Voids 5 3 4 4 3 # Bowel Movements 0 0 3 2 Result Diagram: 02/26/17 0601 02/26/17 0601 Objective Remarks Vital Signs Date Time Temp Pulse Resp B/P (MAP) Pulse Ox O2 Delivery O2 Flow Rate FiO2 02/23/17 15:36 97.8 105 19 146/64 (91) 95 02/23/17 11:31 97.6 94 19 136/42 (73) 96 02/23/17 08:48 95 21 02/23/17 07:42 96.9 85 19 121/55 (77) 94 02/23/17 04:20 96.9 88 20 108/79 (89) 95 02/23/17 00:25 96.7 113 19 135/69 (91) 97 02/22/17 20:30 96.2 111 19 131/77 (95) 97 02/22/17 20:22 97 21 02/22/17 20:00 97 Room Air Medications and IVs GENERAL: SKIN: Warm and dry. HEAD: Atraumatic. Normocephalic. EYES: Pupils equal and round. No scleral icterus. No injection or drainage. ENT: No nasal bleeding or discharge. Mucous membranes pink and moist. NECK: Trachea midline. No JVD. CARDIOVASCULAR: Regular rate and rhythm. RESPIRATORY: No accessory muscle use. Clear to auscultation. Breath sounds equal bilaterally. GASTROINTESTINAL: Abdomen soft, non-tender, nondistended. Hepatic and splenic margins not palpable. MUSCULOSKELETAL: Extremities without clubbing, cyanosis, or edema. No obvious deformities. NEUROLOGICAL: Awake and alert. No obvious cranial nerve deficits. Motor grossly within normal limits. Five out of 5 muscle strength in the arms and legs. Normal speech. PSYCHIATRIC: Appropriate mood and affect; insight and judgment normal. Assessment and Plan Assessment and Plan ASTMA, NO SOB ANEMIA ONCOLOGY FOLLOWING PLAN O2 NEEDED BRONCHODILATOR THERAPY INCREASE ACTIVITY Jerardo Kurtz MD Feb 26, 2017 18:45
[2017-02-26] MEDS: RESP: ALBUTEROL 2.5 MG/3 ML NEB (PRN) INH (19:57)
[2017-02-26] MEDS: ZOLPIDEM TARTRATE 5 MG TAB PO PRN (23:35)
[2017-02-27] VITALS (13 sets, daily range): BP systolic 115–157; BP diastolic 64–103; PULSE 99–125; RESP 19–20; TEMP 95.4–97; O2SAT 93–98
--- NOTE | 2017-02-27 07:26 | HHI.PR ---
Subjective Remarks ALERT NO SOB AT REST Objective GENERAL: SKIN: Warm and dry. HEAD: Atraumatic. Normocephalic. EYES: Pupils equal and round. No scleral icterus. No injection or drainage. ENT: No nasal bleeding or discharge. Mucous membranes pink and moist. NECK: Trachea midline. No JVD. CARDIOVASCULAR: Regular rate and rhythm. RESPIRATORY: No accessory muscle use. Clear to auscultation. Breath sounds equal bilaterally. GASTROINTESTINAL: Abdomen soft, non-tender, nondistended. Hepatic and splenic margins not palpable. MUSCULOSKELETAL: Extremities without clubbing, cyanosis, or edema. No obvious deformities. NEUROLOGICAL: Awake and alert. No obvious cranial nerve deficits. Motor grossly within normal limits. Five out of 5 muscle strength in the arms and legs. Normal speech. PSYCHIATRIC: Appropriate mood and affect; insight and judgment normal. Vital Signs Date Time Temp Pulse Resp B/P (MAP) Pulse Ox O2 Delivery O2 Flow Rate FiO2 02/27/17 04:30 112 02/27/17 00:00 125 02/26/17 20:30 107 02/26/17 20:00 94 Room Air 02/26/17 20:00 96.9 130 18 162/63 (96) 94 02/26/17 17:04 94 Nasal Cannula 2.00 02/26/17 16:00 96.3 86 18 138/64 (88) 95 02/26/17 15:14 97.9 105 18 129/68 (88) 94 02/26/17 12:00 97.2 110 18 135/69 (91) 97 02/26/17 09:39 126 02/26/17 08:00 96.3 110 18 110/57 (74) 96 02/26/17 07:36 Room Air I/O 02/26/17 02/26/17 02/26/17 02/27/17 02/27/17 02/27/17 07:00 15:00 23:00 07:00 15:00 23:00 Intake Total 480 ml 490 ml 0 ml Balance 480 ml 490 ml 0 ml Intake Oral 480 ml 240 ml 0 ml Other 250 ml # Voids 4 3 1 2 # Bowel Movements 3 2 0 0 Result Diagram: 02/26/17 0601 02/26/17 0601 Objective Remarks Vital Signs Date Time Temp Pulse Resp B/P (MAP) Pulse Ox O2 Delivery O2 Flow Rate FiO2 02/23/17 15:36 97.8 105 19 146/64 (91) 95 02/23/17 11:31 97.6 94 19 136/42 (73) 96 02/23/17 08:48 95 21 02/23/17 07:42 96.9 85 19 121/55 (77) 94 02/23/17 04:20 96.9 88 20 108/79 (89) 95 02/23/17 00:25 96.7 113 19 135/69 (91) 97 02/22/17 20:30 96.2 111 19 131/77 (95) 97 02/22/17 20:22 97 21 02/22/17 20:00 97 Room Air Assessment and Plan Assessment and Plan ASTMA, DONTE SOB ANEMIA ONCOLOGY FOLLOWING AFIB HTN PLAN O2 NEEDED BRONCHODILATOR THERAPY INCREASE ACTIVITY FOR ENDOSCOPY Jerardo Kurtz MD Feb 27, 2017 07:26
[2017-02-27 08:57] LABS: HEMATOCRIT 22.8 % (35.0-46.0); HEMOGLOBIN 7.8 GM/DL (11.6-15.3); MEAN CELL VOLUME 94.4 FL (80.0-100.0); MEAN CORPUSCULAR HEMOGLOBIN 32.2 PG (27.0-34.0); MEAN CORPUSCULAR HGB CONC 34.2 % (32.0-36.0); MEAN PLATELET VOLUME 8.7 FL (7.0-11.0); PLATELET COUNT 211 TH/MM3 (150-450); RED BLOOD COUNT 2.41 MIL/MM3 (4.00-5.30); WHITE BLOOD COUNT 11.8 TH/MM3 (4.0-11.0)
[2017-02-27] MEDS: POLYETHYLENE GLYCOL 17 GM PKG PO SCH (09:00)
[2017-02-27] MEDS: DOCUSATE SODIUM 50 MG/SENNA 8.6 MG TAB PO SCH ×2 (09:00→20:48)
[2017-02-27 09:23] LABS: CREATININE 0.92 MG/DL (0.50-1.00)
[2017-02-27] MEDS: predniSONE 20 MG TAB PO SCH (10:26)
[2017-02-27] MEDS: DILTIAZEM-CD 180 MG CAP ER PO SCH (10:26)
[2017-02-27] MEDS: SODIUM CHLORIDE 0.9% FLUSH 10 ML FLUSH IV FLUSH SCH ×2 (10:27→20:48)
[2017-02-27] MEDS: ATORVASTATIN 40 MG TAB PO SCH (10:27)
--- NOTE | 2017-02-27 10:27 | HHI.FPPN ---
Subjective Remarks No acute events overnight. Vital signs unremarkable except for continued tachycardia. This morning patient points that she feels well and has no acute concerns. (Helen Reyes MD, R3) Objective Vitals Vital Signs Date Time Temp Pulse Resp B/P (MAP) Pulse Ox O2 Delivery O2 Flow Rate FiO2 02/27/17 09:17 93 Nasal Cannula 2.00 02/27/17 07:26 96.7 124 19 136/73 (94) 93 02/27/17 04:30 112 02/27/17 00:00 125 02/26/17 20:30 107 02/26/17 20:00 94 Room Air 02/26/17 20:00 96.9 130 18 162/63 (96) 94 02/26/17 17:04 94 Nasal Cannula 2.00 02/26/17 16:00 96.3 86 18 138/64 (88) 95 02/26/17 15:14 97.9 105 18 129/68 (88) 94 02/26/17 12:00 97.2 110 18 135/69 (91) 97 I/O 02/26/17 02/26/17 02/26/17 02/27/17 02/27/17 02/27/17 07:00 15:00 23:00 07:00 15:00 23:00 Intake Total 480 ml 490 ml 0 ml Balance 480 ml 490 ml 0 ml Intake Oral 480 ml 240 ml 0 ml Other 250 ml # Voids 4 3 1 2 # Bowel Movements 3 2 0 0 (Helen Reyes MD, R3) Result Diagram: 02/27/17 0807 02/27/17 0807 Objective Remarks GEN: Well-developed, well-nourished patient. No acute distress. CV: Irregularly irregular rhythm, with mild tachycardia but without obvious murmurs. LUNGS: Late expiratory wheezing bilaterally. No accessory muscle use. Good air movement bilaterally. Able to speak in complete sentences. GI: Nondistended EXT: 1+ pitting edema bilaterally. No calf tenderness. NEURO/PSYCH: Awake, alert. Appropriate insight and judgment. Normal speech (Helen Reyes MD, R3) A/P Assessment and Plan 81-year-old female with history of emphysema, CAD, HTN. Admitted for hyponatremia and hypertension. Developed new onset of afib and also found to have a GI bleed. Discharge Planning 1-2 days pending anticoagulation clearance by cardiology and hematology and A. fib clearance by cardiology. * PT/OT: Will need home health and the following equipment walker, shower chair , bedside commode. * will update son per patient's request Juan Padilla [phone] solomon Alaniz ([facility]) Attending Attestation Patient seen and examined. Case reviewed and discussed with the resident team. Agree with plan of care as discussed with me and documented in the resident note. discussed with her various reasons for hyponatremia. she has not taken the usual meds that can cause that. she denies any polydipsia. she states she had " a low sodium" 3-4 years ago. this can be followed as an outpt (Liyah Alaniz MD) Problem List: (1) New onset a-fib ICD Codes: I48.91 - Unspecified atrial fibrillation Status: Acute Plan: New-onset A. fib with improved rate control. CHF6A5-MRAr is 4, high risk. -Patient's desire to prevent stroke and would like anticoagulation, will need to resume anticoagulation after GI evaluation. -Echo: EF of 65-70% mild to moderate mitral valve regurg and tricuspid regurg. Aortic sclerosis. Moderate pulmonary hypertension. -Diltazem 360mg daily -Eliquis for anticoagulation ($8 for patient at pharmacy) (currently on hold due to continued decrease of H&H) Cardiology consulted: appreciate recommendations * rate intermittently controlled partially due physiologically due to anemia * Concerned about risk of intracranial hemorrhage with uncontrolled blood pressure. * agree with anticoagulation * diltiazem * follow H&H due to down trending hemoglobin * pt unable to tolerate amlodipine Hematology consulted by cardiology: appreciate recommendations * B12, iron profile, ferritin, LDH, haptoglobin ordered * Peripheral smear pending * Hold anticoagulation until results of colonoscopy (2) GI bleed ICD Codes: K92.2 - Gastrointestinal hemorrhage, unspecified Status: Chronic Plan: Hx of anemia. Baseline appears to be around 10. Stable but hemoglobin has dropped to a low of 7.5. Hemoccult positive. No clinical signs of blood loss. -ferritin reassuring -retic count abnormally normal -iron studies, LDH, haptoglobin WNL -B12 elevated >2000 GI consulted: Appreciate recommendations * EGD/colonoscopy: EGD unremarkable, biopsy obtained for evaluation of celiac. Colonoscopy with ischemic colitis but there was poor prep. * Okay to use anticoagulation if needed * Colonoscopy in 3 months Medications: * Discontinued: Protonix IV 12hr, resume oral PPI daily due to steroid use * Discontinued: cytotec 100mg QID for GI protection as well (3) Bronchial asthma ICD Codes: J45.909 - Unspecified asthma, uncomplicated Status: Chronic Plan: Initially improved respiratory status since admission. -PFTs ordered: Decreased flow rates. No evidence of airway obstruction. Possible airways restriction. Consider lung volumes -Echo is significant for pulmonary HTN -Walk test ordered prior to discharge Pulmonary consulted: appreciate recommendations * Increase physical activity and continue bronchodilator therapy. * PFT outpatient. * Repeat CXR unremarkable -incentive spirometry Medications: * Albuterol and duoneb * Oral Prednisone 40mg daily to start 02/20/17-02/23 * Solu-Medrol 40 q12 (02/24-02/26). * Resume oral prednison 40mg dialy 02/27 Imaging: * Repeat CXR unremarkable * CXR: no acute disease * CTA: no PE, diffuse interstitial lung disease with ground glass opacity may present an early congestion, and no consolidations, mild cardiomegaly (4) Hyponatremia ICD Codes: E87.1 - Hyponatremia Status: Resolved Plan: Hyponatremia of 116 found on admission. Likely chronic in nature. No clear etiology at this time. No obvious medication effects or excessive alcohol use. Evaluation for SIADH performed but is negative. Na stable. -urine sodium <40 -continue with fluid restriction (800ml/day) -dc fluids 02/22/17 (5) Uncontrolled hypertension ICD Codes: I10 - Essential (primary) hypertension Status: Resolved Plan: Hx of HTN. Improved BP since admission -urine sodium and UA reassuring. -plasma renin normal, AM cortisol unremarkable Medications: * diltiazem to help with both afib and HTN * s/p hydralazine 10mg IV x1 in ED (6) CAD (coronary artery disease) ICD Codes: I25.10 - Atherosclerotic heart disease of [place] coronary artery without angina pectoris Status: Chronic Plan: HX of CAD -resume home statin -HOLD home plavix due to anticoagulation (7) fen/ppx Status: Acute Plan: Fluids: PO hydration with fluid restriction Electrolytes: monitor and replace as needed. Replaced with 40KCL toady Nutrition: Regular DVT prophylaxis: SCDs, while Eliquis is on hold GI PPX: PPI due to steroid use (Helen Reyes MD, R3) Problem Qualifiers (1) Bronchial asthma: Helen Reyes MD, R3 Feb 27, 2017 10:27 Liyah Alainz MD Feb 27, 2017 14:26
[2017-02-27] MEDS: BUDESONIDE-FORMOTEROL 160/4.5 MCG INHALER INH SCH ×2 (10:28→20:49)
--- NOTE | 2017-02-27 12:23 | HHI.FPPN ---
Addendum to progress note ADDENDUM Reason for addendum: Additonal documentation Additional information Went to inform patient that I spoke with Dr. Clark in regards to her Eliquis. Dr. Clark is okay with resuming. Patient is aware of the risk with the medication and the fact that there is not a reversal agent. Patient is okay with risk as she is more concerned about her stroke risk. Of note, patient did mention bruising on her abdomen but denies any pain. Abdomen is non tender but there is a healing bruise on the lower abdomen bilaterally which is likely from the prior Lovenox injections. Still waiting to hear from hematology. Plan is to discharge tomorrow AM. Helen Reyes MD, R3 Feb 27, 2017 12:23
[2017-02-27] MEDS ORDERED: diphenhydrAMINE HCL 25 MG CAP PO PRN (12:30)
[2017-02-27] MEDS ORDERED: SODIUM CHLOR 0.9% 250 ML INJ 250 ML IV ONE (12:30)
[2017-02-27] MEDS ORDERED: ACETAMINOPHEN 325 MG TAB PO PRN (12:30)
--- NOTE | 2017-02-27 12:30 | PD.ONC.PN ---
Subjective Subjective Remarks Afebrile overnight. Patient resting in room, asking "when will I have my colonoscopy?" Nurse tells the patient she received her colonoscopy yesterday, but patient states she doesn't remember. No overnight events. No pain. Objective Data Date Time Temp Pulse Resp B/P (MAP) Pulse Ox O2 Delivery O2 Flow Rate FiO2 02/27/17 11:34 95.4 109 19 138/82 (100) 96 02/27/17 10:22 Room Air 02/27/17 09:17 93 Nasal Cannula 2.00 02/27/17 07:26 96.7 124 19 136/73 (94) 93 02/27/17 04:30 112 02/27/17 00:00 125 02/26/17 20:30 107 02/26/17 20:00 94 Room Air 02/26/17 20:00 96.9 130 18 162/63 (96) 94 02/26/17 17:04 94 Nasal Cannula 2.00 02/26/17 16:00 96.3 86 18 138/64 (88) 95 02/26/17 15:14 97.9 105 18 129/68 (88) 94 02/27/17 02/27/17 02/27/17 07:00 15:00 23:00 Intake Total 0 ml Balance 0 ml Result Diagram: 02/27/17 0807 02/27/17 0807 Laboratory Results Laboratory Tests Test 02/27/17 08:07 White Blood Count 11.8 TH/MM3 Red Blood Count 2.41 MIL/MM3 Hemoglobin 7.8 GM/DL Hematocrit 22.8 % Mean Corpuscular Volume 94.4 FL Mean Corpuscular Hemoglobin 32.2 PG Mean Corpuscular Hemoglobin Concent 34.2 % Red Cell Distribution Width 16.0 % Platelet Count 211 TH/MM3 Mean Platelet Volume 8.7 FL Blood Urea Nitrogen 31 MG/DL Creatinine 0.92 MG/DL Random Glucose 161 MG/DL Calcium Level 8.0 MG/DL Sodium Level 132 MEQ/L Potassium Level 3.6 MEQ/L Chloride Level 96 MEQ/L Carbon Dioxide Level 25.0 MEQ/L Anion Gap 11 MEQ/L Estimat Glomerular Filtration Rate 59 ML/MIN Culture Results Microbiology Date/Time Source Procedure Growth Status 02/26/17 00:08 Stool Stool Stool Occult Blood (ELIO) - Final HEMOCCULT POSITIVE Complete Administered Medications Medications (Trade) Dose Ordered Sig/Cori Route PRN Reason Start Time Stop Time Status Last Admin Dose Admin Sodium Chloride (NS Flush) 2 ml BID IV FLUSH 02/18/17 21:00 02/27/17 10:27 Acetaminophen (Tylenol) 650 mg Q4H PRN PO TEMP > 100.4/pain 1-2 02/18/17 17:30 02/22/17 20:04 Senna/Docusate Sodium (Linda-Colace) 1 tab BID PO 02/18/17 21:00 02/26/17 21:15 Magnesium Hydroxide (Milk Of Magnesia Liq) 30 ml Q12H PRN PO Mild constipation 02/18/17 17:30 02/20/17 20:36 Sennosides (Senokot) 17.2 mg Q12H PRN PO Moderate constipation 02/18/17 17:30 02/23/17 20:35 Bisacodyl (Dulcolax Supp) 10 mg DAILY PRN RECTAL SEVERE CONSITIPATION 02/18/17 17:30 02/21/17 06:38 Lactulose (Lactulose Liq) 30 ml DAILY PRN PO SEVERE CONSITIPATION 02/18/17 17:30 02/23/17 20:35 Albuterol Sulfate (Albuterol Neb) 2.5 mg Q2HR NEB PRN INH SOB/WHEEZING 02/19/17 14:00 02/26/17 19:57 Clopidogrel Bisulfate (Plavix) 75 mg DAILY PO 02/20/17 09:00 Future Hold 02/20/17 09:23 Atorvastatin Calcium (Lipitor) 40 mg DAILY PO 02/20/17 09:00 02/27/17 10:27 Budesonide/ Formoterol Fumarate (Symbicort 160-4.5 Mcg Inh) 2 puff Q12HR INH 02/19/17 21:00 02/27/17 10:28 Zolpidem Tartrate (Ambien) 5 mg HS PRN PO INSOMNIA 02/20/17 21:00 02/26/17 23:35 Apixaban (Eliquis) 5 mg BID@1100,2300 PO 02/22/17 11:00 Future hold 02/22/17 11:17 Diltiazem HCl (Cardizem Cd) 360 mg DAILY PO 02/24/17 06:00 02/27/17 10:26 Polyethylene Glycol (Miralax) 17 gm DAILY PO 02/25/17 09:00 02/25/17 10:27 Lactated Ringer's 1,000 ml @ 30 mls/hr Q24H PRN IV SEE LABEL COMMENTS 02/26/17 00:30 03/01/17 00:29 02/26/17 12:28 Prednisone (Deltasone) 40 mg DAILY PO 02/27/17 09:00 02/27/17 10:26 Objective Remarks GENERAL: Pleasant, mildly confused elderly female, sitting up in chair next to bed watching TV SKIN: Warm and dry. HEAD: Normocephalic. EYES: No injection or drainage. NECK: Supple, trachea midline. CARDIOVASCULAR: +S1/S2, tachy RESPIRATORY: Breath sounds equal bilaterally. No accessory muscle use. GASTROINTESTINAL: Abdomen soft, non-tender, nondistended. EXTREMITIES: No cyanosis NEUROLOGICAL: awake. normal speech. moving all extremities. Assessment/Plan Problem List: (1) Anemia Status: Chronic Plan: -- Hemoccult-positive --s/p colonoscopy on 02/26 that showed possible ischemic colitis. GI cleared to resume anticoagulation. -- B12 and iron replete (2) Afib ICD Codes: I48.91 - Unspecified atrial fibrillation Plan: -- Being followed by cardiology -- Patient was reportedly on Pradaxa prior to admission -- Eliquis resumed 02/27 Assessment 81-year-old female with history of chronic A. fib; hematology consulted for choice of oral anticoagulant in light of anemia Plan 1. monitor CBC 2. ok to resume Eliquis, will give 1 unit pRBC to enhance her reserves in case of a bleed. Attending Statement The exam, history, and the medical decision-making described in the above note were completed with the assistance of the mid-level provider. I reviewed and agree with the findings presented. I attest that I had a [id number] encounter with the patient on the same day, and personally performed and documented my assessment and findings in the medical record. 81 yoF with atrial fibrillation. Anemia s/p colonoscsopy and EGD which reveals gastritis and coliits with areas of ischemic colitis. Atrial fibrillation with risk of CVA with cardiology recommending anticoagulation for prevention of stroke. Risk vs benefit discussion with patient. Anticoagulation with risk of bleeding. Per manufacterus label in patient who are 82 years old with either weight less than 60 kg or creatinine greater than 1.5 dose can be reduced to 2.5 mg BID. As she is almost 82 with weight in range of dose reduction and current risk of bleeding agree with 2.5 mg BID. Discussed above with patient and primary team. Camelia Lawrence Feb 27, 2017 12:30 Nat Durant MD Feb 27, 2017 23:52
--- NOTE | 2017-02-27 12:39 | HHI.GIFU ---
Subjective Remarks Resting in the bed Awake answers questions appropriately, states she is feeling better Afebrile Tachycardia noted for the past several days according to the record (Kasey Rios) Objective Vitals I&O Vital Signs Date Time Temp Pulse Resp B/P (MAP) Pulse Ox O2 Delivery O2 Flow Rate FiO2 02/27/17 11:34 95.4 109 19 138/82 (100) 96 02/27/17 10:22 Room Air 02/27/17 09:17 93 Nasal Cannula 2.00 02/27/17 07:26 96.7 124 19 136/73 (94) 93 02/27/17 04:30 112 02/27/17 00:00 125 02/26/17 20:30 107 02/26/17 20:00 94 Room Air 02/26/17 20:00 96.9 130 18 162/63 (96) 94 02/26/17 17:04 94 Nasal Cannula 2.00 02/26/17 16:00 96.3 86 18 138/64 (88) 95 02/26/17 15:14 97.9 105 18 129/68 (88) 94 I/O 02/26/17 02/26/17 02/26/17 02/27/17 02/27/17 02/27/17 07:00 15:00 23:00 07:00 15:00 23:00 Intake Total 480 ml 490 ml 0 ml Balance 480 ml 490 ml 0 ml Intake Oral 480 ml 240 ml 0 ml Other 250 ml # Voids 4 3 1 2 # Bowel Movements 3 2 0 0 Laboratory Laboratory Tests Test 02/27/17 08:07 White Blood Count 11.8 Red Blood Count 2.41 Hemoglobin 7.8 Hematocrit 22.8 Mean Corpuscular Volume 94.4 Mean Corpuscular Hemoglobin 32.2 Mean Corpuscular Hemoglobin Concent 34.2 Red Cell Distribution Width 16.0 Platelet Count 211 Mean Platelet Volume 8.7 Blood Urea Nitrogen 31 Creatinine 0.92 Random Glucose 161 Calcium Level 8.0 Sodium Level 132 Potassium Level 3.6 Chloride Level 96 Carbon Dioxide Level 25.0 Anion Gap 11 Estimat Glomerular Filtration Rate 59 Date/Time Source Procedure Growth Status 02/26/17 00:08 Stool Stool Stool Occult Blood (ELIO) - Final HEMOCCULT POSITIVE Complete 02/18/17 12:00 Nasal Washing Influenza Types A,B Antigen (ELIO) - Final NEGATIVE FOR FLU A AND B ANTIGEN.... Complete Imaging Last Impressions Chest X-Ray 02/26/17 0600 Signed Impressions: Service Date/Time: Sunday, February 26, 2017 05:43 - CONCLUSION: No acute disease. No significant change has occurred. Escobar Vidal MD CT Angiography 02/18/17 1743 Signed Impressions: Service Date/Time: Saturday, February 18, 2017 18:24 - CONCLUSION: 1. No evidence of acute pulmonary embolism. 2. Diffuse interstitial lung disease with mild groundglass opacity. This may are present early congestion. 3. No evidence of consolidating airspace disease. 4. Mild cardiomegaly with coronary artery calcification. Bk Kelly MD Physical Exam HEENT:Normocephalic; atraumatic CHEST: Even/unlabored no rhonchi CARDIAC: RRR, tachycardia controlled over the past few days ABDOMEN: Soft, nondistended, nontender; bowel sounds active EXTREMITIES: No clubbing, cyanosis, or edema. SKIN: Normal; no rash; no jaundice. MACHINE COMPOSITOR: No focal deficits; alert and oriented times three. (Kasey Rios) Assessment and Plan Plan Assessment: History - Anemia- Hemoccult positive stool. H/H appears to be fairly stable over the past few days currently 7.8 Normocytic. Pt does report history of anemia and needed to take iron supplements. She is unsure when or why she stopped taking them. No obvious GIB. Denies BRBPR, black, tarry stools, vomiting. Onlyc complaint at this time is acid reflux and heartburn. Last EGD and colonoscopy last year by Dr. Willett, will review office records, pt states normal exam. Protonix. - Constipation- relieved last night after taking lactulose. Pt reports this is a chronic issue. Of note, she is on narcotic pain medication. Will add MiraLAX to current bowel regimen. EGD colonoscopy done on 02/26/17 (02/25) Pt currently on clear liquids for procedure tomorrow. No complaints at this time. H/H now 7.8/22.7. Iron panel normal. Serum Vit B 12 elevated. Serum folate elevated. No obvious GIB. Will proceed with EGD/colonoscopy tomorrow. On 02/27/17 no symptoms of nausea vomiting diarrhea, patient continues to have chronic constipation Records obtained EGD/colonoscopy Mar 2016 --> Gastritis. Esophagitis. Diverticulosis. Hemorrhoids., EGD colonoscopy done on 02/26/17, Hiatal hernia, Ischemic colitis, Incomplete colonoscopy, discussed findings with patient., Will need outpatient repeat colonoscopy in 3 months Plan - - Monitor H/H - Transfuse as needed - Continue Protonix , recommend probiotics, iron supplement ferrous sulfate 325 by mouth twice a day and vitamins - Notify GI of any active bleeding - GI will see and follow as needed, follow-up with further procedures as outpatient colonoscopy in 3 months Pt has been seen and examined by myself and Dr. Batres, note is written on her behalf (Kasey Rios) Physician Comments Patient seen and examined Agree with above Continue with current supportive care Monitor labs Okay for discharge from a GI standpoint Patient's follow-up with GI post discharge We will sign off (Brandon Batres MD) Kasey Rios Feb 27, 2017 12:39 Brandon Batres MD Feb 28, 2017 00:11
--- NOTE | 2017-02-27 15:36 | PD.CARD.PN ---
Subjective Subjective Remarks alert in nad Objective Medications Current Medications Medications (Trade) Dose Ordered Sig/Cori Route Start Time Stop Time Status Last Admin (NS Flush) 2 ml UNSCH PRN IV FLUSH 02/18/17 17:30 (NS Flush) 2 ml BID IV FLUSH 02/18/17 21:00 02/27/17 10:27 (Tylenol) 650 mg Q4H PRN PO 02/18/17 17:30 02/22/17 20:04 (Zofran Inj) 4 mg Q6H PRN IVP 02/18/17 17:30 (Narcan Inj) 0.4 mg UNSCH PRN IV PUSH 02/18/17 17:30 (Linda-Colace) 1 tab BID PO 02/18/17 21:00 02/26/17 21:15 (Milk Of Magnesia Liq) 30 ml Q12H PRN PO 02/18/17 17:30 02/20/17 20:36 (Senokot) 17.2 mg Q12H PRN PO 02/18/17 17:30 02/23/17 20:35 (Dulcolax Supp) 10 mg DAILY PRN RECTAL 02/18/17 17:30 02/21/17 06:38 (Lactulose Liq) 30 ml DAILY PRN PO 02/18/17 17:30 02/23/17 20:35 (Vasotec Inj) 1.25 mg Q6H PRN IV PUSH 02/19/17 13:45 (Albuterol Neb) 2.5 mg Q2HR NEB PRN INH 02/19/17 14:00 02/26/17 19:57 (Plavix) 75 mg DAILY PO 02/20/17 09:00 Future Hold 02/20/17 09:23 (Lipitor) 40 mg DAILY PO 02/20/17 09:00 02/27/17 10:27 (Symbicort 160-4.5 Mcg Inh) 2 puff Q12HR INH 02/19/17 21:00 02/27/17 10:28 (Pill Splitter) 1 ea UNSCH PRN OTHER 02/19/17 14:30 ([place] 5-325 Mg) 1 tab Q4H PRN PO 02/19/17 15:30 ([place] 7.5-325 Mg) 1 tab Q4H PRN PO 02/19/17 15:30 (Ambien) 5 mg HS PRN PO 02/20/17 21:00 02/26/17 23:35 (Cardizem Cd) 360 mg DAILY PO 02/24/17 06:00 02/27/17 10:26 (Preparation H Oint) 1 applic Q6H PRN RECTAL 02/23/17 17:30 (Miralax) 17 gm DAILY PO 02/25/17 09:00 02/25/17 10:27 Lactated Ringer's 1,000 ml @ 30 mls/hr Q24H PRN IV 02/26/17 00:30 03/01/17 00:29 02/26/17 12:28 (Betadine 5% Antisepsis Kit) 1 applic COMMUNITY DEVELOPMENT AIDE PRN EACH NARE 02/26/17 00:30 03/01/17 00:29 (Chlorhexidine 2% Cloth) 3 pack COMMUNITY DEVELOPMENT AIDE PRN TOPICAL 02/26/17 00:30 03/01/17 00:29 (Deltasone) 40 mg DAILY PO 02/27/17 09:00 02/27/17 10:26 (Protonix) 40 mg DAILY PO 02/28/17 09:00 Sodium Chloride 250 ml @ 15 mls/hr ONCE ONCE IV 02/27/17 12:30 02/28/17 05:09 (Tylenol) 650 mg Q4H PRN PO 02/27/17 12:30 (Benadryl) 25 mg Q4H PRN PO 02/27/17 12:30 (Ferrous Sulfate) 325 mg BID PO 02/27/17 21:00 (Eliquis) 2.5 mg BID PO 02/27/17 21:00 Vital Signs / I&O Vital Signs Date Time Temp Pulse Resp B/P (MAP) Pulse Ox O2 Delivery O2 Flow Rate FiO2 02/27/17 11:34 95.4 109 19 138/82 (100) 96 02/27/17 10:22 Room Air 02/27/17 09:17 93 Nasal Cannula 2.00 02/27/17 07:26 96.7 124 19 136/73 (94) 93 02/27/17 04:30 112 02/27/17 00:00 125 02/26/17 20:30 107 02/26/17 20:00 94 Room Air 1/15/18 20:00 96.9 130 18 162/63 (96) 94 02/26/17 17:04 94 Nasal Cannula 2.00 02/26/17 16:00 96.3 86 18 138/64 (88) 95 I/O 02/26/17 02/26/17 02/26/17 02/27/17 02/27/17 02/27/17 07:00 15:00 23:00 07:00 15:00 23:00 Intake Total 480 ml 490 ml 0 ml 850 ml Balance 480 ml 490 ml 0 ml 850 ml Intake Oral 480 ml 240 ml 0 ml 850 ml Other 250 ml # Voids 4 3 1 2 4 # Bowel Movements 3 2 0 0 Physical Exam GENERAL: SKIN: Warm and dry. HEAD: Normocephalic. EYES: No scleral icterus. No injection or drainage. NECK: Supple, trachea midline. No JVD or lymphadenopathy. CARDIOVASCULAR: Regular rate and rhythm without murmurs, gallops, or rubs. RESPIRATORY: Breath sounds equal bilaterally. No accessory muscle use. GASTROINTESTINAL: Abdomen soft, non-tender, nondistended. MUSCULOSKELETAL: No cyanosis, or edema. BACK: Nontender without obvious deformity. No CVA tenderness. Laboratory Laboratory Tests Test 02/27/17 08:07 White Blood Count 11.8 TH/MM3 Red Blood Count 2.41 MIL/MM3 Hemoglobin 7.8 GM/DL Hematocrit 22.8 % Mean Corpuscular Volume 94.4 FL Mean Corpuscular Hemoglobin 32.2 PG Mean Corpuscular Hemoglobin Concent 34.2 % Red Cell Distribution Width 16.0 % Platelet Count 211 TH/MM3 Mean Platelet Volume 8.7 FL Blood Urea Nitrogen 31 MG/DL Creatinine 0.92 MG/DL Random Glucose 161 MG/DL Calcium Level 8.0 MG/DL Sodium Level 132 MEQ/L Potassium Level 3.6 MEQ/L Chloride Level 96 MEQ/L Carbon Dioxide Level 25.0 MEQ/L Anion Gap 11 MEQ/L Estimat Glomerular Filtration Rate 59 ML/MIN Assessment and Plan Problem List: (1) New onset a-fib ICD Codes: I48.91 - Unspecified atrial fibrillation Status: Acute (2) Hypertension Status: Chronic Assessment and Plan 1.) PAF - rate intermittently controlled partially due physiologically due to anemia, intolerant of norvasc, dc norvasc, increase cardizem 90 mg q6hr, cleared for eliquis by GI and hematology, hematology has ordered transfusion, f/ u cbc Clayton Clark MD Feb 27, 2017 15:36
[2017-02-27] MEDS: FERROUS SULFATE 325 MG (65 MG ELEMENTAL IRON) TAB PO SCH (20:48)
[2017-02-27] MEDS: APIXABAN 2.5 MG TABLET PO SCH (20:48)
[2017-02-27] MEDS: ZOLPIDEM TARTRATE 5 MG TAB PO PRN (23:14)
[2017-02-28 00:15] VITALS: PULSE 111
[2017-02-28 04:00] VITALS: BP 143/67; PULSE 97; RESP 19; TEMP 97.3; O2SAT 93
[2017-02-28 04:02] VITALS: PULSE 128
--- NOTE | 2017-02-28 07:03 | HHI.DCPOC ---
Discharge Care Plan Diagnosis: (1) Colitis (2) CAD (coronary artery disease) (3) Uncontrolled hypertension (4) New onset a-fib (5) Bronchial asthma Goals to Promote Your Health * To prevent worsening of your condition and complications * To maintain your health at the optimal level Directions to Meet Your Goals Take your medications as prescribed Follow your dietary instruction Follow activity as directed Keep your appointments as scheduled Take your immunizations and boosters as scheduled If your symptoms worsen call your PCP, if no PCP go to Urgent Care Center or Emergency Room Smoking is Dangerous to Your Health. Avoid second hand smoke Call the 24-hour hour crisis hotline for domestic abuse at Helen Reyes MD, R3 Feb 28, 2017 07:03
[2017-02-28] MEDS ORDERED: AMBI5TAB PO (07:09)
[2017-02-28] MEDS ORDERED: PRED20 PO (07:09)
[2017-02-28] MEDS ORDERED: MIRA3350 PO (07:09)
[2017-02-28] MEDS ORDERED: CARD180C5 PO (07:09)
[2017-02-28] MEDS ORDERED: FERR325T20 PO (07:09)
[2017-02-28] MEDS ORDERED: PANT40TA3 PO (07:09)
[2017-02-28] MEDS ORDERED: APIX2.5T PO (07:09)
[2017-02-28 08:00] VITALS: BP 141/75; PULSE 98; RESP 18; TEMP 96.8; O2SAT 96
--- NOTE | 2017-02-28 08:19 | HHI.FPPN ---
Subjective Remarks No acute events overnight. VS this AM remain consistent. This morning she reports that she is feeling well. Has no acute concerns. Is up walking around room with walker without issue. (Helen Reyes MD, R3) Objective Vitals Vital Signs Date Time Temp Pulse Resp B/P (MAP) Pulse Ox O2 Delivery O2 Flow Rate FiO2 02/28/17 04:02 128 02/28/17 04:00 97.3 97 19 143/67 (92) 93 02/28/17 00:15 111 02/27/17 23:11 96.4 108 20 115/64 (81) 95 02/27/17 20:55 Room Air 02/27/17 20:43 96.5 124 19 140/85 96 02/27/17 20:06 116 02/27/17 20:00 97.0 123 19 157/103 (121) 98 02/27/17 18:06 98 Nasal Cannula 2.00 02/27/17 17:22 96.0 118 20 136/74 98 02/27/17 17:07 95.5 123 20 133/87 97 02/27/17 15:44 96.8 99 19 121/83 (96) 93 02/27/17 11:34 95.4 109 19 138/82 (100) 96 02/27/17 10:22 Room Air 02/27/17 09:17 93 Nasal Cannula 2.00 I/O 02/27/17 02/27/17 02/27/17 02/28/17 02/28/17 02/28/17 07:00 15:00 23:00 07:00 15:00 23:00 Intake Total 0 ml 850 ml 872 ml 200 ml Output Total 220 ml 400 ml Balance 0 ml 850 ml 652 ml -200 ml Intake Oral 0 ml 850 ml 320 ml 200 ml Packed Cells 400 ml Blood Product IV Normal Saline Flush 152 ml Output Urine Total 220 ml 400 ml # Voids 2 4 # Bowel Movements 0 0 0 (Helen Reyes MD, R3) Result Diagram: 02/27/17 0807 02/27/17 0807 Objective Remarks GEN: Well-developed, well-nourished patient. No acute distress. CV: Irregularly irregular rhythm, with mild tachycardia but without obvious murmurs. LUNGS: Late expiratory wheezing bilaterally. No accessory muscle use. Good air movement bilaterally. Able to speak in complete sentences. GI: Nondistended EXT: Walking with walker without issue. NEURO/PSYCH: Awake, alert. Appropriate insight and judgment. Normal speech (Helen Reyes MD, R3) A/P Assessment and Plan 81-year-old female with history of emphysema, CAD, HTN. Admitted for hyponatremia and hypertension. Developed new onset of afib and also found to have a GI bleed. Discharge Planning Today * PT/OT: Will need home health and the following equipment walker, shower chair , bedside commode. * will update son per patient's request Juan Padilla [phone] Alaniz (Helen Reyes MD, R3) Attending Attestation Patient seen and examined. Case reviewed and discussed with the resident team. Agree with plan of care as discussed with me and documented in the resident note. she feels well and is ready to go home (Liyah Alaniz MD) Problem List: (1) New onset a-fib ICD Codes: I48.91 - Unspecified atrial fibrillation Status: Acute Plan: New-onset A. fib with improved rate control. [id number] is 4, high risk. -Patient's desire to prevent stroke and would like anticoagulation, patient aware that Eliquis is non reversible and she wants to be placed on this therapy -Echo: EF of 65-70% mild to moderate mitral valve regurg and tricuspid regurg. Aortic sclerosis. Moderate pulmonary hypertension. -Diltazem 360mg daily -Eliquis for anticoagulation ($8 for patient at pharmacy) * resumed at 2.5mg BID dosing as patient is a high bleed risk and is on the border for this dosing regimen based on age and weight. Cardiology consulted: appreciate recommendations * rate intermittently controlled partially due physiologically due to anemia * Concerned about risk of intracranial hemorrhage with uncontrolled blood pressure. * agree with anticoagulation resumption * diltiazem * pt unable to tolerate amlodipine Hematology consulted by cardiology: appreciate recommendations * B12, iron profile, ferritin, LDH, haptoglobin ordered * Peripheral smear: severe normochromic normocytic anemia, mild leukocytosis with neutrophilia. * Give I unit pRBC to enhance reserves * Spoke with Dr. Durant who suggested and agreed with the 2.5mg dosing of Eliquis (2) GI bleed ICD Codes: K92.2 - Gastrointestinal hemorrhage, unspecified Status: Chronic Plan: Hx of anemia. Baseline appears to be around 10. Stable but hemoglobin has dropped to a low of 7.5. Hemoccult positive. No clinical signs of blood loss. -ferritin reassuring -retic count abnormally normal -iron studies, LDH, haptoglobin WNL -B12 elevated >2000 GI consulted: Appreciate recommendations * EGD/colonoscopy: EGD unremarkable, biopsy obtained for evaluation of celiac. Colonoscopy with ischemic colitis but there was poor prep. * Okay to use anticoagulation if needed * Colonoscopy in 3 months * continue protonix, recommend probiotics, iron supplements BID, and a multivitamin Medications: * Discontinued: Protonix IV 12hr, resume oral PPI daily due to steroid use * Discontinued: cytotec 100mg QID for GI protection as well (3) Bronchial asthma ICD Codes: J45.909 - Unspecified asthma, uncomplicated Status: Chronic Plan: Initially improved respiratory status since admission. -PFTs ordered: Decreased flow rates. No evidence of airway obstruction. Possible airways restriction. Consider lung volumes -Echo is significant for pulmonary HTN -Walk test negative Pulmonary consulted: appreciate recommendations * Increase physical activity and continue bronchodilator therapy. * PFT outpatient. * Repeat CXR unremarkable -incentive spirometry Medications: * Albuterol and duoneb * Oral Prednisone 40mg daily to start 02/20/17-02/23 * Solu-Medrol 40 q12 (02/24-02/26). * Resume oral prednison 40mg dialy 02/27 Imaging: * Repeat CXR unremarkable * CXR: no acute disease * CTA: no PE, diffuse interstitial lung disease with ground glass opacity may present an early congestion, and no consolidations, mild cardiomegaly (4) Hyponatremia ICD Codes: E87.1 - Hyponatremia Status: Resolved Plan: Hyponatremia of 116 found on admission. Likely chronic in nature. No clear etiology at this time. No obvious medication effects or excessive alcohol use. Evaluation for SIADH performed but is negative. Na stable. -urine sodium <40 -continue with fluid restriction (800ml/day) -dc fluids 02/22/17 (5) Uncontrolled hypertension ICD Codes: I10 - Essential (primary) hypertension Status: Resolved Plan: Hx of HTN. Improved BP since admission -urine sodium and UA reassuring. -plasma renin normal, AM cortisol unremarkable Medications: * diltiazem to help with both afib and HTN * s/p hydralazine 10mg IV x1 in ED (6) CAD (coronary artery disease) ICD Codes: I25.10 - Atherosclerotic heart disease of [place] coronary artery without angina pectoris Status: Chronic Plan: HX of CAD -resume home statin -DISCONTINUED plavix due to Eliquis anticoagulation (7) fen/ppx Status: Acute Plan: Fluids: PO hydration with fluid restriction Electrolytes: monitor and replace as needed. Replaced with 40KCL toady Nutrition: Regular DVT prophylaxis: Eliquis is on hold GI PPX: PPI (Helen Reyes MD, R3) Problem Qualifiers (1) Bronchial asthma: Helen Reyes MD, R3 Feb 28, 2017 08:19 Liyah Alaniz MD Mar 05, 2017 08:26
[2017-02-28] MEDS: BUDESONIDE-FORMOTEROL 160/4.5 MCG INHALER INH SCH (09:00)
[2017-02-28] MEDS ORDERED: PANTOPRAZOLE SOD 40 MG DELAYED RELEASE TAB PO SCH (09:00)
[2017-02-28] MEDS: SODIUM CHLORIDE 0.9% FLUSH 10 ML FLUSH IV FLUSH SCH (09:00)
[2017-02-28] MEDS: DOCUSATE SODIUM 50 MG/SENNA 8.6 MG TAB PO SCH (09:04)
[2017-02-28] MEDS: DILTIAZEM-CD 180 MG CAP ER PO SCH (09:04)
[2017-02-28] MEDS: ATORVASTATIN 40 MG TAB PO SCH (09:04)
[2017-02-28] MEDS: APIXABAN 2.5 MG TABLET PO SCH (09:04)
[2017-02-28] MEDS: FERROUS SULFATE 325 MG (65 MG ELEMENTAL IRON) TAB PO SCH (09:04)
[2017-02-28] MEDS: predniSONE 20 MG TAB PO SCH (09:05)
[2017-02-28] MEDS: POLYETHYLENE GLYCOL 17 GM PKG PO SCH (09:06)
[2017-02-28 09:39] LABS: HEMATOCRIT 28.9 % (35.0-46.0); HEMOGLOBIN 10.1 GM/DL (11.6-15.3)
[2017-02-28] MEDS ORDERED: LACTCHW3 CHEW (10:48)
[2017-02-28] MEDS ORDERED: MULTTAB67 PO (10:48)
--- NOTE | 2017-02-28 10:55 | HHI.DS ---
Discharge Summary Admission Date Feb 18, 2017 at 15:23 Discharge Date: Feb 28, 2017 Admitting Diagnosis severe hyponatremia. Acute exacerbation of asthma (1) New onset a-fib Plan: New-onset A. fib with improved rate control. [id number] is 4, high risk. -Patient's desire to prevent stroke and would like anticoagulation, patient aware that Eliquis is non reversible and she wants to be placed on this therapy -Echo: EF of 65-70% mild to moderate mitral valve regurg and tricuspid regurg. Aortic sclerosis. Moderate pulmonary hypertension. -Diltazem 360mg daily -Eliquis for anticoagulation ($8 for patient at pharmacy) * resumed at 2.5mg BID dosing as patient is a high bleed risk and is on the border for this dosing regimen based on age and weight. Cardiology consulted: appreciate recommendations * rate intermittently controlled partially due physiologically due to anemia * Concerned about risk of intracranial hemorrhage with uncontrolled blood pressure. * agree with anticoagulation resumption * diltiazem * pt unable to tolerate amlodipine Hematology consulted by cardiology: appreciate recommendations * B12, iron profile, ferritin, LDH, haptoglobin ordered * Peripheral smear: severe normochromic normocytic anemia, mild leukocytosis with neutrophilia. * Give I unit pRBC to enhance reserves * Spoke with Dr. Durant who suggested and agreed with the 2.5mg dosing of Eliquis ICD Codes: I48.91 - Unspecified atrial fibrillation Status: Acute (2) GI bleed Plan: Hx of anemia. Baseline appears to be around 10. Stable but hemoglobin has dropped to a low of 7.5. Hemoccult positive. No clinical signs of blood loss. -ferritin reassuring -retic count abnormally normal -iron studies, LDH, haptoglobin WNL -B12 elevated >2000 GI consulted: Appreciate recommendations * EGD/colonoscopy: EGD unremarkable, biopsy obtained for evaluation of celiac. Colonoscopy with ischemic colitis but there was poor prep. * Okay to use anticoagulation if needed * Colonoscopy in 3 months * continue protonix, recommend probiotics, iron supplements BID, and a multivitamin Medications: * Discontinued: Protonix IV 12hr, resume oral PPI daily due to steroid use * Discontinued: cytotec 100mg QID for GI protection as well ICD Codes: K92.2 - Gastrointestinal hemorrhage, unspecified Status: Chronic (3) Bronchial asthma Plan: Initially improved respiratory status since admission. -PFTs ordered: Decreased flow rates. No evidence of airway obstruction. Possible airways restriction. Consider lung volumes -Echo is significant for pulmonary HTN -Walk test negative Pulmonary consulted: appreciate recommendations * Increase physical activity and continue bronchodilator therapy. * PFT outpatient. * Repeat CXR unremarkable -incentive spirometry Medications: * Albuterol and duoneb * Oral Prednisone 40mg daily to start 02/20/17-02/23 * Solu-Medrol 40 q12 (02/24-02/26). * Resume oral prednison 40mg dialy 02/27 Imaging: * Repeat CXR unremarkable * CXR: no acute disease * CTA: no PE, diffuse interstitial lung disease with ground glass opacity may present an early congestion, and no consolidations, mild cardiomegaly ICD Codes: J45.909 - Unspecified asthma, uncomplicated Status: Chronic (4) Hyponatremia Plan: Hyponatremia of 116 found on admission. Likely chronic in nature. No clear etiology at this time. No obvious medication effects or excessive alcohol use. Evaluation for SIADH performed but is negative. Na stable. -urine sodium <40 -continue with fluid restriction (800ml/day) -dc fluids 02/22/17 ICD Codes: E87.1 - Hyponatremia Status: Resolved (5) Uncontrolled hypertension Plan: Hx of HTN. Improved BP since admission -urine sodium and UA reassuring. -plasma renin normal, AM cortisol unremarkable Medications: * diltiazem to help with both afib and HTN * s/p hydralazine 10mg IV x1 in ED ICD Codes: I10 - Essential (primary) hypertension Status: Resolved (6) CAD (coronary artery disease) Plan: HX of CAD -resume home statin -DISCONTINUED plavix due to Eliquis anticoagulation ICD Codes: I25.10 - Atherosclerotic heart disease of [place] coronary artery without angina pectoris Status: Chronic (7) fen/ppx Plan: Fluids: PO hydration with fluid restriction Electrolytes: monitor and replace as needed. Replaced with 40KCL toady Nutrition: Regular DVT prophylaxis: Eliquis is on hold GI PPX: PPI Status: Acute Consultants Cardiology Hematology GI Procedures EGD and colonoscopy Brief History Patient is a 81-year-old female with a past medical history significant for HTN , GERD, sleep apnea and CAD who presents today for high blood pressure. She took her BP at home and it was 199/88. She denies any headache or blurry vision during this episode. Denies any abdominal pain or pain elsewhere. She has noticed less urine output recently but she cannot say for how long. She has felt excessively thirsty over the last few weeks, but she has not been drinking more water than usual. She has occasionally had N/V, and vomited this morning after eating 2 eggs. She is not currently nauseas. She denies any recent mood changes or depression. Denies fever/chills. She has had continuous problems with constipation. On ROS; pt admits to SOB and cough, fatigue and dizziness for the last few weeks. She has noticed that she is moving very slow. She had the respiratory sx when she saw her PCP on 01/31. She was given Albuterol and that helped her. She has been using the albuterol every other day for sx. She also sees a renewals specialist for unknown lung disease and she last saw him 1 year ago. CBC/BMP: 02/28/17 0800 02/27/17 0807 Significant Findings Laboratory Tests Test 02/26/17 06:01 02/27/17 08:07 02/28/17 08:00 Hemoglobin 8.0 GM/DL (11.6-15.3) 7.8 GM/DL (11.6-15.3) 10.1 GM/DL (11.6-15.3) Hematocrit 22.8 % (35.0-46.0) 22.8 % (35.0-46.0) 28.9 % (35.0-46.0) Blood Urea Nitrogen 33 MG/DL (7-18) 31 MG/DL (7-18) Random Glucose 122 MG/DL (74-106) 161 MG/DL (74-106) Calcium Level 7.8 MG/DL (8.5-10.1) 8.0 MG/DL (8.5-10.1) Sodium Level 133 MEQ/L (136-145) 132 MEQ/L (136-145) Potassium Level 3.1 MEQ/L (3.5-5.1) Chloride Level 96 MEQ/L (98-107) 96 MEQ/L (98-107) Estimat Glomerular Filtration Rate 54 ML/MIN (>89) 59 ML/MIN (>89) B-Type Natriuretic Peptide 306 PG/ML (0-100) White Blood Count 11.8 TH/MM3 (4.0-11.0) Red Blood Count 2.41 MIL/MM3 (4.00-5.30) Imaging Last Impressions Chest X-Ray 02/26/17 0600 Signed Impressions: Service Date/Time: Sunday, February 26, 2017 05:43 - CONCLUSION: No acute disease. No significant change has occurred. Escobar Vidal MD CT Angiography 02/18/17 1743 Signed Impressions: Service Date/Time: Saturday, February 18, 2017 18:24 - CONCLUSION: 1. No evidence of acute pulmonary embolism. 2. Diffuse interstitial lung disease with mild groundglass opacity. This may are present early congestion. 3. No evidence of consolidating airspace disease. 4. Mild cardiomegaly with coronary artery calcification. Bk Kelly MD PE at Discharge GEN: Well-developed, well-nourished patient. No acute distress. CV: Irregularly irregular rhythm, with mild tachycardia but without obvious murmurs. LUNGS: Late expiratory wheezing bilaterally. No accessory muscle use. Good air movement bilaterally. Able to speak in complete sentences. GI: Nondistended EXT: Walking with walker without issue. NEURO/PSYCH: Awake, alert. Appropriate insight and judgment. Normal speech Hospital Course Patient is a 81-year-old female with history of bronchial asthma, CAD, HTN. Admitted for hyponatremia, HTN. Hyponatremia is corrected with fluid restriction and normal saline fluids. HTN was corrected with increase of home pressure medications. However during treatment, she developed new onset A. fib so blood pressure medications were transitioned to diltiazem. Patient is also high stroke risk and would benefit from anticoagulation however she was found to have anemia that was going up and down. Anticoagulation was held until hematology and GI were consulted for further evaluation. Hemoccult positive. GI performed EGD and colonoscopy. EGD was unremarkable but colonoscopy showed ischemic colitis. Patient continued to have tachycardia but cardiology thinks this is due to her physiologic anemia so current dose of diltiazem will be continued at discharge but to be titrated as an outpatient. In regards to her bronchial asthma, patient was treated with steroids and pulmonary was consulted. Patient was discharged in stable condition and she is fully aware of risk of bleed due to Eliquis her anemia. Due to her anemia, patient was transfused 1 unit of packed red blood cells prior to discharge. Pt Condition on Discharge: Stable Discharge Disposition: Disch w/ Home Health Serv Discharge Instructions DIET: Follow Instructions for: Heart Healthy Diet Activities you can perform: Regular-No Restrictions Follow up Referrals: Cardiology - 1 Week with Clayton Clark MD Gastroenterology - 1 Week with Brandon Batres MD PCP Follow-up - 1 Week with Carrie Mims MD, R3 PCP Follow-up @ Pulmonology - 2 Weeks with Jerardo Kurtz MD SNF/DETENTION/ with [facility] New Orders: Pulmonary Rehab - 1 Week New Medications: Bedside Commode (Bedside Commode) 1 Mis Mis EA .ROUTE DIRECTED, #1 Lactobacillus Acidophilus (Lactinex) 1 Chew 1 TAB CHEW BID for Nutritional Supplement, #60 TAB 0 Refills Multiple Vitamin (Multiple Vitamin) 1 Tab 1 TAB PO DAILY for Nutritional Supplement, #30 TAB 0 Refills Polyethylene Glycol 3350 Powder (Miralax Powder) 17 Gm Powd 17 GM PO DAILY for Constipation, #1 CAN 0 Refills Mix and dissolve one measuring cap-ful (17 grams) in water or juice. Walker with Front Wheels (Walker with Front Wheels) 1 Mis Mis EA .ROUTE DIRECTED, #1 0 Refills [shower chair] () UNIT, #1 Apixaban (Eliquis) 2.5 Mg Tab 2.5 MG PO BID, #60 TAB Diltiazem CD 24 HR (Cardizem CD 24 HR) 180 Mg Caper 360 MG PO DAILY, #60 CAP Ferrous Sulfate (Ferosul) 325 Mg (65 Mg Iron) Tablet 325 MG PO BID, #60 TAB Pantoprazole (Pantoprazole) 40 Mg Tab 40 MG PO DAILY, #30 TAB Prednisone (Prednisone) 20 Mg Tab 40 MG PO DAILY, #11 TAB 2 tabs for 3 days. Then 1 tab for 3 days. Then 1 tab every other day for 2 days Zolpidem (Ambien) 5 Mg Tab 5 MG PO HS PRN for INSOMNIA, #30 TAB Continued Medications: Budesonide-Formoterol Inh (Symbicort Inh) 160-4.5 Mcg/Act Aero 2 PUFF INH Q12HR, #1 INHALER 0 Refills Rosuvastatin (Crestor) 20 Mg Tab 20 MG PO DAILY for Cholesterol Management, #30 TAB 0 Refills Discontinued Medications: Clopidogrel (Plavix) 75 Mg Tab 75 MG PO DAILY for Blood Clot Prevention, #30 TAB 0 Refills Metoprolol Succinate ER 24 HR (Metoprolol Succinate ER 24 HR) 50 Mg Tab 50 MG PO DAILY, #90 TAB 3 Refills Norvasc (Norvasc) 5 Mg Tab 2.5 MG PO DAILY, #90 TAB 4 Refills Ranitidine (Ranitidine) 150 Mg Tab 150 MG PO BID for Heartburn Management, #60 TAB 0 Refills Trazodone (Trazodone) 50 Mg Tab 50 MG PO HS for Control Depression, #30 TAB 0 Refills Helen Reyes MD, R3 Feb 28, 2017 10:54
== END 2017-02-28 12:13 | disposition home health service (06) | DRG 641 ==
LOC: NEPE 11:21 → NEDA 15:23 → N06B 18:45
PROVIDERS: ADMIT Family Medicine; ATTEND Family Medicine
PROC: 0DBL8ZX Excision of Transverse Colon, Via Natural or Artificial Opening Endoscopic, Diagnostic (ICD-10-PCS; 2017-02-26)
PROC: 0DB98ZX Excision of Duodenum, Via Natural or Artificial Opening Endoscopic, Diagnostic (ICD-10-PCS; 2017-02-26 14:31)
PROC: 30233N1 Transfusion of Nonautologous Red Blood Cells into Peripheral Vein, Percutaneous Approach (ICD-10-PCS; principal; 2017-02-27)
DX: E87.1 Hypo-osmolality and hyponatremia (principal); K55.9 Vascular disorder of intestine, unspecified; I27.20 Pulmonary hypertension, unspecified; K92.2 Gastrointestinal hemorrhage, unspecified; I48.0 Paroxysmal atrial fibrillation; Z79.02 Long term (current) use of antithrombotics/antiplatelets; I35.8 Other nonrheumatic aortic valve disorders; D64.9 Anemia, unspecified; I10 Essential (primary) hypertension; J45.909 Unspecified asthma, uncomplicated; J43.9 Emphysema, unspecified; I25.10 Atherosclerotic heart disease of native coronary artery without angina pectoris; G47.33 Obstructive sleep apnea (adult) (pediatric); K21.9 Gastro-esophageal reflux disease without esophagitis; K59.00 Constipation, unspecified; K44.9 Diaphragmatic hernia without obstruction or gangrene; E78.5 Hyperlipidemia, unspecified; M47.9 Spondylosis, unspecified; R00.0 Tachycardia, unspecified; Z87.891 Personal history of nicotine dependence
CPT/HCPCS: 36430; 71045; 71275; 80048; 80076; 81001; 82272; 82533; 82607; 82728; 82746; 83010; 83540; 83550; 83615; 83735; 83880; 83930; 83935; 84244; 84300; 84443; 85014; 85018; 85025; 85027; 85044; 85060; 86850; 86900; 86901; 86920; 87804; 88305; 93005; 93306; 94060; 94150; 94618; 94640; 94664; 94799; 96361; 96374; C9113; J0360; J1650; J2920; J2930; J7030; J7040; J7120; J7512; J7613; P9016; Q9967

== ENCOUNTER → 2017-03-27 | Outpatient (CLI) | payer MEDICARE, MEDICAID ==
[~2017-03-27] MED LIST changes: -ALBUAER3 INH; +AMBI5TAB PO; +APIX2.5T PO; +BEDSIDE COMMODE1 MI1; -CALCTAB80 PO; +CARD180C5 PO; -CLOP75 PO; -CYCL5TAB PO; -ESTR42.5V VAGINAL; -FERR325T PO; +FERR325T20 PO; -GABA300C5 PO; -LACT10SO PO; +LACTCHW3 CHEW; -METO1TAB9 PO; +MIRA3350 PO; +MULTTAB67 PO; -NORV5TAB PO; +PANT40TA3 PO; +PRED20 PO; -PROC2.5C PR; -RANI1TAB7 PO; +ROSU20 PO; -ROSU40 PO; -SENN1TAB PO; -TRAZ50TA12 PO; +WALKER WHEELS/F1 MIS; +shower chair
[2017-03-27 10:55] LABS: HEMATOCRIT 29.8 % (35.0-46.0); HEMOGLOBIN 10.4 GM/DL (11.6-15.3); MEAN CELL VOLUME 92.8 FL (80.0-100.0); MEAN CORPUSCULAR HEMOGLOBIN 32.3 PG (27.0-34.0); MEAN CORPUSCULAR HGB CONC 34.8 % (32.0-36.0); PLATELET COUNT 167 TH/MM3 (150-450); RED BLOOD COUNT 3.21 MIL/MM3 (4.00-5.30); WHITE BLOOD COUNT 9.4 TH/MM3 (4.0-11.0)
[2017-03-27 11:36] LABS: BICARBONATE 28.4 MEQ/L (21.0-32.0); CREATININE 1.11 MG/DL (0.50-1.00)
== END ==
LOC: CLAB 10:21
PROVIDERS: ATTEND Internal Medicine Interventional Cardiology
DX: R78.89 Finding of other specified substances, not normally found in blood (principal); R06.02 Shortness of breath; I25.10 Atherosclerotic heart disease of native coronary artery without angina pectoris
CPT/HCPCS: 36415; 80048; 83735; 83880; 85027

== ENCOUNTER → 2017-04-13 | Outpatient (CLI) | payer MEDICARE, MEDICAID ==
[2017-04-13 09:41] LABS: ALBUMIN 3.4 GM/DL (3.4-5.0); AST (GOT) 30 U/L (15-37); BICARBONATE 27.5 MEQ/L (21.0-32.0); BLOOD UREA NITROGEN 18 MG/DL (7-18); CALCIUM 9.5 MG/DL (8.5-10.1); CHLORIDE 102 MEQ/L (98-107); GLOMERULAR FILTRATION RATE 60 ML/MIN (>89); GLUCOSE,FASTING 98 MG/DL (74-99); MAGNESIUM 1.8 MG/DL (1.5-2.5); SODIUM (NA) 138 MEQ/L (136-145)
[2017-04-13 09:43] LABS: ALT (GPT) 27 U/L (10-53); CHOLESTEROL 163 MG/DL (120-200); DIRECT BILIRUBIN ADULT 0.1 MG/DL (0.0-0.2)
[2017-04-13 09:45] LABS: ALKALINE PHOSPHATASE 64 U/L (45-117); HDL CHOLESTEROL 54.3 MG/DL (40.0-60.0); LDL CHOLESTEROL 84 MG/DL (0-99); TOTAL BILIRUBIN ADULT 0.4 MG/DL (0.2-1.0); TOTAL PROTEIN 7.3 GM/DL (6.4-8.2); TRIGLYCERIDES 122 MG/DL (42-150)
== END ==
LOC: CLAB 09:06
PROVIDERS: ATTEND Internal Medicine Interventional Cardiology
DX: I50.9 Heart failure, unspecified (principal); I25.10 Atherosclerotic heart disease of native coronary artery without angina pectoris; I45.4 Nonspecific intraventricular block; I10 Essential (primary) hypertension; R78.89 Finding of other specified substances, not normally found in blood; E78.5 Hyperlipidemia, unspecified; Z79.899 Other long term (current) drug therapy
CPT/HCPCS: 36415; 80053; 80061; 82248; 82550; 83735; 83880

== ENCOUNTER 2017-04-23 10:37 | Emergency (ER) | payer MEDICARE, MEDICAID ==
[~2017-04-23] VITALS: Ht 149.9 cm; Wt 57.0 kg
[2017-04-23 10:50] VITALS: BP 119/61; PULSE 155; RESP 16; TEMP 97.7; O2SAT 95
[2017-04-23 11:43] LABS: AUTOMATED NEUTROPHIL # 7.2 TH/MM3 (1.8-7.7); BASOPHIL # 0.1 TH/MM3 (0-0.2); BASOPHIL % 0.6 % (0.0-2.0); EOSINOPHIL # 0.6 TH/MM3 (0-0.4); EOSINOPHIL % 5.8 % (0.0-4.0); HEMATOCRIT 32.1 % (35.0-46.0); HEMOGLOBIN 10.9 GM/DL (11.6-15.3); LYMPH % 16.9 % (9.0-44.0); LYMPHOCYTE # 1.8 TH/MM3 (1.0-4.8); MEAN CELL VOLUME 93.7 FL (80.0-100.0); MEAN CORPUSCULAR HEMOGLOBIN 31.9 PG (27.0-34.0); MEAN CORPUSCULAR HGB CONC 34.1 % (32.0-36.0); MEAN PLATELET VOLUME 9.2 FL (7.0-11.0); MONO % 10.4 % (0.0-8.0); MONOCYTE # 1.1 TH/MM3 (0-0.9); NEUT % 66.3 % (16.0-70.0); PLATELET COUNT 169 TH/MM3 (150-450); RED BLOOD COUNT 3.42 MIL/MM3 (4.00-5.30); RED CELL DISTRIBUTION WIDTH 17.8 % (11.6-17.2); WHITE BLOOD COUNT 10.8 TH/MM3 (4.0-11.0)
[2017-04-23 11:49] LABS: INTERNATIONAL NORMALIZED RATIO 1.1 RATIO; PROTHROMBIN TIME - PATIENT 10.9 SEC (9.8-11.6)
[2017-04-23 12:19] LABS: BICARBONATE 28.8 MEQ/L (21.0-32.0); CALCIUM 9.4 MG/DL (8.5-10.1); CREATININE 1.27 MG/DL (0.50-1.00)
[2017-04-23] MEDS ORDERED: ACETAMINOPHEN/HYDROcodone 325 MG/5 MG TAB PO ONE (13:15)
--- NOTE | 2017-04-23 13:16 | PD ---
HPI . Head injury Chief Complaint: Fall Time Seen by Provider: 12:57 Travel History International Travel<30 days: No Contact w/Intl Traveler<30days: No Traveled to known affect area: No History of Present Illness HPI This patient presents for the evaluation of a head injury. She states that she had a slip and fall yesterday causing a blow to her head. She denies loss of consciousness but does take Eliquis. She presents to us today complaining with headache but denies any other symptoms of a head injury such as blurred vision or nausea. She states that the pain in her head is severe and rates it 10/10. She took Advil this morning with some relief of her pain. PFSH Past Medical History Hx Anticoagulant Therapy: Yes (PLAVIX AND "SOMETHING ELSE") Anemia: Yes Arthritis: Yes Asthma: Yes (CHILD) Heart Rhythm Problems: No Cancer: No Cardiovascular Problems: Yes (L CARTOID STENOSIS) High Cholesterol: Yes Chest Pain: No Congestive Heart Failure: No COPD: No Cerebrovascular Accident: No Diabetes: No Diminished Hearing: No Endocrine: No Gastrointestinal Disorders: No GERD: Yes Genitourinary: No Headaches: No Hepatitis: No Hiatal Hernia: Yes Hypertension: Yes Immune Disorder: No Implanted Vascular Access Dvce: No Musculoskeletal: Yes (OA LOWER BACK) Neurologic: No Psychiatric: No Reproductive: No Respiratory: Yes (ASTHMA) Immunizations Current: Yes Migraines: No Seizures: No Sleep Apnea: Yes Thyroid Disease: No Ulcer: No Influenza Vaccination: No ?: Not Menopausal: Yes : 2 Para: 1 : 1 Ovarian Cysts: Yes (REMOVED APPROX 30 YRS AGO) Past Surgical History Abdominal Surgery: No AICD: No Cardiac Surgery: No Ear Surgery: Yes (CATARACT JANET.) Endocrine Surgery: No Eye Surgery: Yes Genitourinary Surgery: No Gynecologic Surgery: Yes (CYST REMOVED FROM OVARY) Joint Replacement: No Neurologic Surgery: No Oral Surgery: No Pacemaker: No Thoracic Surgery: No Tonsillectomy: Yes Other Surgery: Yes (CYST REMOVED) Social History Alcohol Use: Yes (OCC) Tobacco Use: No (quit 30 years ago) Substance Use: No Allergies-Medications (Allergen,Severity, Reaction): Coded Allergies: No Known Allergies (Verified Adverse Reaction, Unknown, 04/23/17) Reported Meds & Prescriptions Reported Meds & Active Scripts Active Multiple Vitamin 1 Tab 1 Tab PO DAILY Lactinex (Lactobacillus Acidophilus) 1 Chew 1 Tab CHEW BID Miralax Powder (Polyethylene Glycol 3350 Powder) 17 Gm Powd 17 Gm PO DAILY Mix and dissolve one measuring cap-ful (17 grams) in water or juice. Prednisone 20 Mg Tab 40 Mg PO DAILY 2 tabs for 3 days. Then 1 tab for 3 days. Then 1 tab every other day for 2 days Pantoprazole (Pantoprazole Sodium) 40 Mg Tab 40 Mg PO DAILY Ambien (Zolpidem Tartrate) 5 Mg Tab 5 Mg PO HS PRN Cardizem CD 24 HR (Diltiazem CD 24 HR) 180 Mg Caper 360 Mg PO DAILY Eliquis (Apixaban) 2.5 Mg Tab 2.5 Mg PO BID Ferosul (Ferrous Sulfate) 325 Mg (65 Mg Iron) Tablet 325 Mg PO BID [shower chair] Unit Bedside Commode (Device) 1 Mis Mis Ea .ROUTE DIRECTED Walker with Front Wheels (Device) 1 Mis Mis Ea .ROUTE DIRECTED Reported Symbicort Inh (Budesonide/Formoterol Fumarate) 160-4.5 Mcg/Act Aero 2 Puff INH Q12HR Crestor (Rosuvastatin Calcium) 20 Mg Tab 20 Mg PO DAILY Review of Systems Except as stated in HPI: all other systems reviewed are Neg Eyes: No: Blurred Vision HENT: Positive: Headaches Gastrointestinal: No: Nausea, Vomiting Physical Exam Narrative GENERAL: Awake and alert and in no acute distress. SKIN: Warm and dry. HEAD: Normocephalic/atraumatic. No palpable contusion. EYES: Pupils are equal. Extraocular movements are intact. NECK: Normal range of motion. Nontender. RESPIRATORY: Nonlabored respirations. MUSCULOSKELETAL: Atraumatic. NEUROLOGICAL: A and O 3. No cranial nerve deficits noted. Moving all 4 extremities equally. PSYCHIATRIC: Appropriate mood and affect. Data Data Last Documented VS Vital Signs Date Time Temp Pulse Resp B/P (MAP) Pulse Ox O2 Delivery O2 Flow Rate FiO2 04/23/17 10:50 97.7 155 16 119/61 (80) 95 Orders Orders Complete Blood Count With Diff (04/23/17 10:54) Prothrombin Time / Inr (Pt) (04/23/17 10:54) Basic Metabolic Panel (Bmp) (04/23/17 10:54) Ct Brain W/O Iv Contrast(Rout) (04/23/17 12:58) Acetamin-Hydrocod 325-5 Mg ([place] 5-325 (04/23/17 13:15) Labs Laboratory Tests Test 04/23/17 11:20 White Blood Count 10.8 TH/MM3 Red Blood Count 3.42 MIL/MM3 Hemoglobin 10.9 GM/DL Hematocrit 32.1 % Mean Corpuscular Volume 93.7 FL Mean Corpuscular Hemoglobin 31.9 PG Mean Corpuscular Hemoglobin Concent 34.1 % Red Cell Distribution Width 17.8 % Platelet Count 169 TH/MM3 Mean Platelet Volume 9.2 FL Neutrophils (%) (Auto) 66.3 % Lymphocytes (%) (Auto) 16.9 % Monocytes (%) (Auto) 10.4 % Eosinophils (%) (Auto) 5.8 % Basophils (%) (Auto) 0.6 % Neutrophils # (Auto) 7.2 TH/MM3 Lymphocytes # (Auto) 1.8 TH/MM3 Monocytes # (Auto) 1.1 TH/MM3 Eosinophils # (Auto) 0.6 TH/MM3 Basophils # (Auto) 0.1 TH/MM3 CBC Comment DIFF FINAL Differential Comment Prothrombin Time 10.9 SEC Prothromb Time International Ratio 1.1 RATIO Blood Urea Nitrogen 22 MG/DL Creatinine 1.27 MG/DL Random Glucose 91 MG/DL Calcium Level 9.4 MG/DL Sodium Level 136 MEQ/L Potassium Level 4.9 MEQ/L Chloride Level 101 MEQ/L Carbon Dioxide Level 28.8 MEQ/L Anion Gap 6 MEQ/L Estimat Glomerular Filtration Rate 41 ML/MIN MDM Medical Decision Making Medical Screen Exam Complete: Yes Emergency Medical Condition: Yes Differential Diagnosis My differential diagnosis of head trauma includes but is not limited to scalp contusion, concussion, intracerebral hemorrhage. Narrative Course Patient presents for the evaluation of a possible head injury. She had a slip and fall yesterday striking the back of her head. She comes in today complaining with head pain which she rates 10/10. She is on Eliquis. CT of her head is pending. CT is negative. Diagnosis Primary Impression: Headache Additional Impressions: Scalp contusion Qualified Codes: S00.03XA - Contusion of scalp, initial encounter Chronic anticoagulation Patient Instructions: General Instructions, Scalp Contusion in Adults (ED) Additional Instructions: Tylenol as needed for pain. Ice to the area will also help. Disposition: 01 DISCHARGE HOME Condition: Stable Dang Valdez MD Apr 23, 2017 13:16
--- NOTE | 2017-04-23 14:01 | RADRPT ---
EXAM DATE/TIME: 04/23/2017 13:41 [facility] COMPARISON: CT BRAIN W/O CONTRAST, April 14, 2014, 14:20. INDICATIONS : Fall yesterday RADIATION DOSE: 34.85 CTDIvol (mGy) MEDICAL HISTORY : Hypertension. Carotid stenosis. SURGICAL HISTORY : Tonsillectomy. ENCOUNTER: Initial ACUITY: 2 days PAIN SCALE: 4/10 LOCATION: cranial TECHNIQUE: Multiple contiguous axial images were obtained of the head. Using automated exposure control and adj ustment of the mA and/or kV according to patient size, radiation dose was kept as low as reasonably a chievable to obtain optimal diagnostic quality images. DICOM format image data is available electro nically for review and comparison. FINDINGS: No signs of acute infarct, hemorrhage or mass. Adr hypodensity in the bilateral centrum semiovale and periventricular white matter, and subcortical white matter identified characteristics of chronic melanie rovascular ischemic disease. This is stable. No fractures are seen. CONCLUSION: No acute disease. Cuauhtemoc Drew MD on April 23, 2017 at 13:59 Board Certified Radiologist. This report was verified electronically.
== END 2017-04-23 14:41 | disposition home or self-care (01) ==
LOC: NEPD 10:37
DX: S00.03XA Contusion of scalp, initial encounter (principal); R51 Headache; D64.9 Anemia, unspecified; M19.90 Unspecified osteoarthritis, unspecified site; K21.9 Gastro-esophageal reflux disease without esophagitis; I10 Essential (primary) hypertension; J45.909 Unspecified asthma, uncomplicated; G47.30 Sleep apnea, unspecified; W01.0XXA Fall on same level from slipping, tripping and stumbling without subsequent striking against object, initial encounter
CPT/HCPCS: 70450; 80048; 85025; 85610; 99284

== ENCOUNTER 2017-05-11 18:20 | Inpatient (IN) | payer MEDICARE, MEDICAID ==
[~2017-05-11] VITALS: Ht 149.9 cm; Wt 58.0 kg
[2017-05-11 18:27] VITALS: BP 106/78; PULSE 44; RESP 17
[2017-05-11] MEDS ORDERED: SODIUM CHLOR 0.9% 1000 ML INJ 1,000 ML IV ONE (18:44)
[2017-05-11] MEDS ORDERED: SODIUM CHLORIDE 0.9% FLUSH 10 ML FLUSH IVF PRN (18:45)
[2017-05-11 18:49] VITALS: BP 101/55; PULSE 41; RESP 20; O2SAT 98
--- NOTE | 2017-05-11 19:09 | PD ---
HPI Chief Complaint: Neuro Symptoms/ Deficits Time Seen by Provider: 18:38 Travel History International Travel<30 days: No Contact w/Intl Traveler<30days: No Traveled to known affect area: No History of Present Illness HPI Patient is a 81-year-old female presenting to the emergency department for evaluation of shortness of breath and chest pain. Patient states it started several hours ago after she took a "little green pill". She states she was prescribed this pill after her last admission. She states the chest pain as pressure-like, there is no radiation. The shortness of breath is worse with exertion. When she attempts to get up she feels dizzy and as if she is going to pass out. She reports pain in her chest is a 3 out of 10. Symptom onset was gradual, symptom severity is moderate, there are no alleviating factors, symptoms are exacerbated with movement. Patient denies any headache, abdominal pain, nausea, vomiting. PFSH Past Medical History Hx Anticoagulant Therapy: Yes (Eliquis) Anemia: Yes Arthritis: Yes Asthma: Yes High Cholesterol: Yes Coronary Artery Disease: Yes GERD: Yes Hiatal Hernia: Yes Hypertension: Yes Immunizations Current: Yes Sleep Apnea: Yes Tetanus Vaccination: > 5 Years Influenza Vaccination: Yes ?: Not Menopausal: Yes : 2 Para: 1 : 1 Ovarian Cysts: Yes (REMOVED APPROX 30 YRS AGO) Past Surgical History Eye Surgery: Yes Gynecologic Surgery: Yes (CYST REMOVED FROM OVARY) Tonsillectomy: Yes Social History Alcohol Use: Yes (OCC) Tobacco Use: No (quit 30 years ago) Substance Use: No Allergies-Medications (Allergen,Severity, Reaction): Coded Allergies: No Known Allergies (Verified Adverse Reaction, Unknown, 05/11/17) Reported Meds & Prescriptions Reported Meds & Active Scripts Active Multiple Vitamin 1 Tab 1 Tab PO DAILY Miralax Powder (Polyethylene Glycol 3350 Powder) 17 Gm Powd 17 Gm PO DAILY Mix and dissolve one measuring cap-ful (17 grams) in water or juice. Prednisone 20 Mg Tab 40 Mg PO DAILY 2 tabs for 3 days. Then 1 tab for 3 days. Then 1 tab every other day for 2 days Pantoprazole (Pantoprazole Sodium) 40 Mg Tab 40 Mg PO DAILY Ambien (Zolpidem Tartrate) 5 Mg Tab 5 Mg PO HS PRN Cardizem CD 24 HR (Diltiazem CD 24 HR) 180 Mg Caper 360 Mg PO DAILY Eliquis (Apixaban) 2.5 Mg Tab 2.5 Mg PO BID Ferosul (Ferrous Sulfate) 325 Mg (65 Mg Iron) Tablet 325 Mg PO BID [shower chair] Unit Walker with Front Wheels (Device) 1 Mis Mis Ea .ROUTE DIRECTED Reported Symbicort Inh (Budesonide/Formoterol Fumarate) 160-4.5 Mcg/Act Aero 2 Puff INH Q12HR Crestor (Rosuvastatin Calcium) 20 Mg Tab 20 Mg PO DAILY Review of Systems Except as stated in HPI: all other systems reviewed are Neg General / Constitutional: No: Fever Eyes: No: Blurred Vision HENT: No: Headaches Cardiovascular: Positive: Chest Pain or Discomfort, Irregular Rhythm, Dyspnea on exertion Respiratory: Positive: Shortness of Breath Gastrointestinal: No: Nausea, Vomiting, Abdominal Pain Physical Exam Narrative GENERAL: Well-developed, well-nourished, alert elderly female. Presenting in no acute distress. SKIN: Warm and dry. HEAD: Atraumatic. Normocephalic. EYES: Pupils equal and round. No scleral icterus. No injection or drainage. ENT: No nasal bleeding or discharge. Mucous membranes pink and moist. NECK: Trachea midline. No JVD. CARDIOVASCULAR: Irregularly irregular, bradycardic RESPIRATORY: No accessory muscle use. Clear to auscultation. Breath sounds equal bilaterally. GASTROINTESTINAL: Abdomen soft, non-tender, nondistended. Hepatic and splenic margins not palpable. MUSCULOSKELETAL: Extremities without clubbing, cyanosis. No obvious deformities. 1+ edema to bilateral lower extremities. NEUROLOGICAL: Awake and alert. No obvious cranial nerve deficits. Motor grossly within normal limits. Five out of 5 muscle strength in the arms and legs. Normal speech. PSYCHIATRIC: Appropriate mood and affect; insight and judgment normal. Data Data Last Documented VS Vital Signs Date Time Temp Pulse Resp B/P (MAP) Pulse Ox O2 Delivery O2 Flow Rate FiO2 05/11/17 19:35 97.6 05/11/17 18:49 41 20 98 Nasal Cannula 2.00 Orders Orders Electrocardiogram (05/11/17 18:44) Complete Blood Count With Diff (05/11/17 18:44) Comprehensive Metabolic Panel (05/11/17 18:44) Magnesium (Mg) (05/11/17 18:44) B-Type Natriuretic Peptide (05/11/17 18:44) Ckmb (Isoenzyme) Profile (05/11/17 18:44) Troponin I (05/11/17 18:44) Act Partial Throm Time (Ptt) (05/11/17 18:44) Prothrombin Time / Inr (Pt) (05/11/17 18:44) Urinalysis - C+S If Indicated (05/11/17 18:44) Chest, Single Ap (05/11/17 18:44) Ecg Monitoring (05/11/17 18:44) Iv Access Insert/Monitor (05/11/17 18:44) Oximetry (05/11/17 18:44) Sodium Chloride 0.9% Flush (Ns Flush) (05/11/17 18:45) Sodium Chlor 0.9% 1000 Ml Inj (Ns 1000 M (05/11/17 18:44) Admit Order (Ed Use Only) (05/11/17 21:23) Labs Laboratory Tests Test 05/11/17 18:55 White Blood Count 10.7 TH/MM3 Red Blood Count 3.30 MIL/MM3 Hemoglobin 10.3 GM/DL Hematocrit 31.5 % Mean Corpuscular Volume 95.4 FL Mean Corpuscular Hemoglobin 31.3 PG Mean Corpuscular Hemoglobin Concent 32.8 % Red Cell Distribution Width 18.3 % Platelet Count 164 TH/MM3 Mean Platelet Volume 9.2 FL Neutrophils (%) (Auto) 49.7 % Lymphocytes (%) (Auto) 30.7 % Monocytes (%) (Auto) 10.9 % Eosinophils (%) (Auto) 8.1 % Basophils (%) (Auto) 0.6 % Neutrophils # (Auto) 5.3 TH/MM3 Lymphocytes # (Auto) 3.3 TH/MM3 Monocytes # (Auto) 1.2 TH/MM3 Eosinophils # (Auto) 0.9 TH/MM3 Basophils # (Auto) 0.1 TH/MM3 CBC Comment DIFF FINAL Differential Comment Prothrombin Time 11.4 SEC Prothromb Time International Ratio 1.1 RATIO Activated Partial Thromboplast Time 27.9 SEC Blood Urea Nitrogen 23 MG/DL Creatinine 1.32 MG/DL Random Glucose 191 MG/DL Total Protein 7.4 GM/DL Albumin 3.1 GM/DL Calcium Level 8.9 MG/DL Magnesium Level 2.3 MG/DL Alkaline Phosphatase 78 U/L Aspartate Amino Transf (AST/SGOT) 58 U/L Alanine Aminotransferase (ALT/SGPT) 35 U/L Total Bilirubin 0.5 MG/DL Sodium Level 136 MEQ/L Potassium Level 5.1 MEQ/L Chloride Level 103 MEQ/L Carbon Dioxide Level 18.0 MEQ/L Anion Gap 15 MEQ/L Estimat Glomerular Filtration Rate 39 ML/MIN Total Creatine Kinase 68 U/L Troponin I LESS THAN 0.02 NG/ML B-Type Natriuretic Peptide 202 PG/ML MDM Medical Decision Making Medical Screen Exam Complete: Yes Emergency Medical Condition: Yes Medical Record Reviewed: Yes Interpretation(s) Vital Signs Date Time Temp Pulse Resp B/P (MAP) Pulse Ox O2 Delivery O2 Flow Rate FiO2 05/11/17 19:35 97.6 05/11/17 18:49 41 20 101/55 (70) 98 Nasal Cannula 2.00 05/11/17 18:44 41 20 95 Nasal Cannula 2.00 05/11/17 18:27 44 17 106/78 (87) Last Impressions Chest X-Ray 05/11/17 1844 Signed Impressions: Service Date/Time: Thursday, May 11, 2017 19:09 - CONCLUSION: Diffuse increased interstitial markings likely related to pulmonary venous hypertension and/or mild edema. Bart Vazquez MD Laboratory Tests Test 05/11/17 18:55 White Blood Count 10.7 TH/MM3 Red Blood Count 3.30 MIL/MM3 Hemoglobin 10.3 GM/DL Hematocrit 31.5 % Mean Corpuscular Volume 95.4 FL Mean Corpuscular Hemoglobin 31.3 PG Mean Corpuscular Hemoglobin Concent 32.8 % Red Cell Distribution Width 18.3 % Platelet Count 164 TH/MM3 Mean Platelet Volume 9.2 FL Neutrophils (%) (Auto) 49.7 % Lymphocytes (%) (Auto) 30.7 % Monocytes (%) (Auto) 10.9 % Eosinophils (%) (Auto) 8.1 % Basophils (%) (Auto) 0.6 % Neutrophils # (Auto) 5.3 TH/MM3 Lymphocytes # (Auto) 3.3 TH/MM3 Monocytes # (Auto) 1.2 TH/MM3 Eosinophils # (Auto) 0.9 TH/MM3 Basophils # (Auto) 0.1 TH/MM3 CBC Comment DIFF FINAL Differential Comment Prothrombin Time 11.4 SEC Prothromb Time International Ratio 1.1 RATIO Activated Partial Thromboplast Time 27.9 SEC Blood Urea Nitrogen 23 MG/DL Creatinine 1.32 MG/DL Random Glucose 191 MG/DL Total Protein 7.4 GM/DL Albumin 3.1 GM/DL Calcium Level 8.9 MG/DL Magnesium Level 2.3 MG/DL Alkaline Phosphatase 78 U/L Aspartate Amino Transf (AST/SGOT) 58 U/L Alanine Aminotransferase (ALT/SGPT) 35 U/L Total Bilirubin 0.5 MG/DL Sodium Level 136 MEQ/L Potassium Level 5.1 MEQ/L Chloride Level 103 MEQ/L Carbon Dioxide Level 18.0 MEQ/L Anion Gap 15 MEQ/L Estimat Glomerular Filtration Rate 39 ML/MIN Total Creatine Kinase 68 U/L Troponin I LESS THAN 0.02 NG/ML B-Type Natriuretic Peptide 202 PG/ML Vital Signs Date Time Temp Pulse Resp B/P (MAP) Pulse Ox O2 Delivery O2 Flow Rate FiO2 05/11/17 18:49 41 20 101/55 (70) 98 Nasal Cannula 2.00 05/11/17 18:44 41 20 95 Nasal Cannula 2.00 05/11/17 18:27 44 17 106/78 (87) Differential Diagnosis Cardiac arrhythmia versus metabolic abdomen allergy versus congestive heart failure versus other Narrative Course Patient presented with symptomatic bradycardia. Heart rate is in the 40s, she is awake, alert. She is mildly hypotensive on arrival. IV fluids ordered. Labs and imaging ordered and pending. Initial EKG shows atrial fibrillation with slow ventricular response with a rate of 41, incomplete right bundle branch block. CBC with no acute findings. BNP is 202, cardiac enzymes are negative 1 set. Chemistry with BUN and creatinine 23/1.32, this is stable when compared to prior. Chest x-ray shows diffuse increased interstitial markings likely related to pulmonary venous hypertension and/or mild edema. Patient will be admitted at this time. She is agreeable. Family was at bedside. Discussed findings with my attending physician. Patient was admitted to the resident service under Dr. Martinez. Admit orders placed. Diagnosis Primary Impression: Symptomatic bradycardia Additional Impression: Atrial fibrillation Qualified Codes: I48.91 - Unspecified atrial fibrillation Admitting Information Admitting Physician Requests: Admit Condition: Stable Jessica Jauregui ROSE May 11, 2017 19:09
[2017-05-11 19:11] LABS: AUTOMATED NEUTROPHIL # 5.3 TH/MM3 (1.8-7.7); BASOPHIL # 0.1 TH/MM3 (0-0.2); BASOPHIL % 0.6 % (0.0-2.0); EOSINOPHIL # 0.9 TH/MM3 (0-0.4); EOSINOPHIL % 8.1 % (0.0-4.0); HEMATOCRIT 31.5 % (35.0-46.0); HEMOGLOBIN 10.3 GM/DL (11.6-15.3); LYMPH % 30.7 % (9.0-44.0); LYMPHOCYTE # 3.3 TH/MM3 (1.0-4.8); MEAN CELL VOLUME 95.4 FL (80.0-100.0); MEAN CORPUSCULAR HEMOGLOBIN 31.3 PG (27.0-34.0); MEAN CORPUSCULAR HGB CONC 32.8 % (32.0-36.0); MEAN PLATELET VOLUME 9.2 FL (7.0-11.0); MONO % 10.9 % (0.0-8.0); MONOCYTE # 1.2 TH/MM3 (0-0.9); NEUT % 49.7 % (16.0-70.0); PLATELET COUNT 164 TH/MM3 (150-450); RED CELL DISTRIBUTION WIDTH 18.3 % (11.6-17.2); WHITE BLOOD COUNT 10.7 TH/MM3 (4.0-11.0)
[2017-05-11 19:23] LABS: INTERNATIONAL NORMALIZED RATIO 1.1 RATIO; PROTHROMBIN TIME - PATIENT 11.4 SEC (9.8-11.6)
[2017-05-11 19:30] LABS: ALBUMIN 3.1 GM/DL (3.4-5.0); AST (GOT) 58 U/L (15-37); BLOOD UREA NITROGEN 23 MG/DL (7-18); CALCIUM 8.9 MG/DL (8.5-10.1); CHLORIDE 103 MEQ/L (98-107); CREATININE 1.32 MG/DL (0.50-1.00); GLOMERULAR FILTRATION RATE 39 ML/MIN (>89); GLUCOSE,RANDOM 191 MG/DL (74-106); MAGNESIUM 2.3 MG/DL (1.5-2.5); SODIUM (NA) 136 MEQ/L (136-145)
[2017-05-11 19:31] LABS: ALT (GPT) 35 U/L (10-53)
[2017-05-11 19:35] VITALS: TEMP 97.6
[2017-05-11 19:35] LABS: ALKALINE PHOSPHATASE 78 U/L (45-117); TOTAL BILIRUBIN ADULT 0.5 MG/DL (0.2-1.0); TOTAL PROTEIN 7.4 GM/DL (6.4-8.2); TROPONIN I LESS THAN 0.02 NG/ML (0.02-0.05)
--- NOTE | 2017-05-11 19:44 | RADRPT ---
EXAM DATE/TIME: 05/11/2017 19:09 [facility] COMPARISON: CHEST SINGLE AP, February 26, 2017, 5:43. INDICATIONS : Syncope. MEDICAL HISTORY : Chronic obstructive pulmonary disease. SURGICAL HISTORY : None. ENCOUNTER: Initial ACUITY: 1 day PAIN SCORE: 0/10 LOCATION: Bilateral chest FINDINGS: The heart size is enlarged. Aorta is calcified. The lungs demonstrate mild diffuse increased intersti tial markings. Significant effusions are not seen. CONCLUSION: Diffuse increased interstitial markings likely related to pulmonary venous hypertension and/or mild e suzi. Bart Vazquez MD on May 11, 2017 at 19:40 Board Certified Radiologist. This report was verified electronically.
--- NOTE | 2017-05-11 21:24 | HHI.HP ---
HPI Service Family Medicine Primary Care Physician Unknown Admission Diagnosis Diagnoses: International Travel<30 Days: No Contact w/Intl Traveler<30days: No Known Affected Area: No History of Present Illness Patient is a 81-year-old female with significant past medical history of A. fib on eliquis, asthma, and hypertension presented to the emergency room via ambulance due to symptoms of dizziness and shortness of breath. Patient was recently been hospitalized for A. fib with RVR. She was discharged on Cardizem 360 mg but had not taken this medication until today. This morning she took both metoprolol (50mg) and Cardizem (360mg) medication for the first time. Patient stated she does not remember being told that she should stop her metoprolol medication. A few hours after taking both medications she reports feeling dizzy and SOB. She also reports low BP at home of 80-90s/50s (her normal SBP ranges are 126-130s) and she decided to call 911. Denies LOC, syncope , neurological deficits, CP, sensation of room spinning, N/V, diarrhea, fever, chills, cough, dysuria or increase frequency. Of note: Patient's annual greenhouse manager is Dr. Clark. Patient reports that she recently had a stress test and EKG done (does not remember the results of these tests). However, she states Dr. Clark has referred her to Dr. Levine and she had a CT scan of her chest yesterday. In the ED patient was found to be bradycardic with heart rate in the low 40s. She was given 1 bolus of normal saline. (Patrice Daniel MD, R1) Review of Systems Constitutional: COMPLAINS OF: Fatigue, Dizziness, DENIES: Fever, Weight loss ( 13 daysrecentlry hospitalized), Chills Eyes: DENIES: Blurred vision, Vision loss Ears, nose, mouth, throat: DENIES: Hearing loss, Throat pain Respiratory: COMPLAINS OF: Shortness of breath, DENIES: Cough, Wheezing Cardiovascular: DENIES: Chest pain, Palpitations, Lower Extremity Edema Gastrointestinal: DENIES: Diarrhea, Nausea, Vomiting Genitourinary: DENIES: Urinary frequency, Dysuria Integumentary: DENIES: Rash Hematologic/lymphatic: DENIES: Bruising Neurologic: DENIES: Headache, Seizures Psychiatric: DENIES: Confusion (Patrice Daniel MD, R1) Past Family Social History Past Medical History A. Fib on eliquis HTN GERD sleep apnea- CPAP, CAD asthma, use inhaler 2 time/day Past Surgical History Ovarian cyst removal 1979 Face lift 1984 Cataract Surgery 2014 Reported Medications Reported Meds & Active Scripts Active Multiple Vitamin 1 Tab 1 Tab PO DAILY Pantoprazole (Pantoprazole Sodium) 40 Mg Tab 40 Mg PO DAILY Ambien (Zolpidem Tartrate) 5 Mg Tab 5 Mg PO HS PRN Cardizem CD 24 HR (Diltiazem CD 24 HR) 180 Mg Caper 360 Mg PO DAILY Eliquis (Apixaban) 2.5 Mg Tab 2.5 Mg PO BID Ferosul (Ferrous Sulfate) 325 Mg (65 Mg Iron) Tablet 325 Mg PO BID Symbicort Inh (Budesonide/Formoterol Fumarate) 160-4.5 Mcg/Act Aero 2 Puff INH Q12HR Crestor (Rosuvastatin Calcium) 20 Mg Tab 20 Mg PO DAILY (Patrice Daniel MD, R1) Allergies: Coded Allergies: No Known Allergies (Verified Adverse Reaction, Unknown, 05/11/17) Active Ordered Medications Current Medications Medications (Trade) Dose Ordered Sig/Cori Route Start Time Stop Time Status Last Admin (NS Flush) 2 ml UNSCH PRN IVF 05/11/17 18:45 Family History Mother: healthy, of abdominal aneurism at age 79 Father: stroke Brothers: cardiac disease, tongue cancer Sister: Traumatic brain injury Social History Tobacco: quit 40 years ago, smoked 10 years 1/2ppd Alcohol: couple wine glasses per day, about 1 per wk Illicit drugs: None Lives alone in an apartment. Good support system of friends and family around. Son is involved and nieces. Son: Juan Padilla [phone] (Patrice Daniel MD, R1) Physical Exam Vital Signs Vital Signs Date Time Temp Pulse Resp B/P (MAP) Pulse Ox O2 Delivery O2 Flow Rate FiO2 05/11/17 19:35 97.6 05/11/17 18:49 41 20 101/55 (70) 98 Nasal Cannula 2.00 05/11/17 18:44 41 20 95 Nasal Cannula 2.00 05/11/17 18:27 44 17 106/78 (87) Physical Exam GENERAL: This is a well-nourished, well-developed patient, in no apparent distress. SKIN: No rashes, ecchymoses or lesions. Cool and dry. HEAD: Atraumatic. Normocephalic. No temporal or scalp tenderness. EYES: Pupils equal round and reactive. Extraocular motions intact. No scleral icterus. No injection or drainage. ENT: Nose without bleeding, purulent drainage or septal hematoma. Throat without erythema, tonsillar hypertrophy or exudate. Uvula midline. Airway patent. NECK: Trachea midline. No JVD or lymphadenopathy. Supple, nontender, no meningeal signs. CARDIOVASCULAR: Normal S1 and S2. Irregular rate and rhythm without murmurs, gallops, or rubs. RESPIRATORY: Exp wheezes noted throughout lung woo BL. No rales, or rhonchi. GASTROINTESTINAL: Abdomen soft, non-tender, nondistended. MUSCULOSKELETAL: Extremities without clubbing or cyanosis. +1 pitting edema on LE BL. No joint tenderness, effusion, or edema noted. No calf tenderness. Negative Homans sign bilaterally. NEUROLOGICAL: Awake and alert. Cranial nerves II through XII intact. Motor and sensory grossly within normal limits. Five out of 5 muscle strength in all muscle groups. Normal speech. AAO x3 Laboratory Laboratory Tests Test 05/11/17 18:55 White Blood Count 10.7 Red Blood Count 3.30 Hemoglobin 10.3 Hematocrit 31.5 Mean Corpuscular Volume 95.4 Mean Corpuscular Hemoglobin 31.3 Mean Corpuscular Hemoglobin Concent 32.8 Red Cell Distribution Width 18.3 Platelet Count 164 Mean Platelet Volume 9.2 Neutrophils (%) (Auto) 49.7 Lymphocytes (%) (Auto) 30.7 Monocytes (%) (Auto) 10.9 Eosinophils (%) (Auto) 8.1 Basophils (%) (Auto) 0.6 Neutrophils # (Auto) 5.3 Lymphocytes # (Auto) 3.3 Monocytes # (Auto) 1.2 Eosinophils # (Auto) 0.9 Basophils # (Auto) 0.1 CBC Comment DIFF FINAL Differential Comment Prothrombin Time 11.4 Prothromb Time International Ratio 1.1 Activated Partial Thromboplast Time 27.9 Blood Urea Nitrogen 23 Creatinine 1.32 Random Glucose 191 Total Protein 7.4 Albumin 3.1 Calcium Level 8.9 Magnesium Level 2.3 Alkaline Phosphatase 78 Aspartate Amino Transf (AST/SGOT) 58 Alanine Aminotransferase (ALT/SGPT) 35 Total Bilirubin 0.5 Sodium Level 136 Potassium Level 5.1 Chloride Level 103 Carbon Dioxide Level 18.0 Anion Gap 15 Estimat Glomerular Filtration Rate 39 Total Creatine Kinase 68 Troponin I LESS THAN 0.02 B-Type Natriuretic Peptide 202 (Patrice Daniel MD, R1) Result Diagram: 05/11/17185405/11/17 1855 Imaging Last Impressions Chest X-Ray 05/11/17 1844 Signed Impressions: Service Date/Time: Thursday, May 11, 2017 19:09 - CONCLUSION: Diffuse increased interstitial markings likely related to pulmonary venous hypertension and/or mild edema. Bart Vazquez MD (Patrice Daniel MD, R1) Caprini VTE Risk Assessment Caprini VTE Risk Assessment: Mod/High Risk (score >= 2) Caprini Risk Assessment Model Point Value = 1 Point Value = 2 Point Value = 3 Point Value = 5 Age 41-60 Minor surgery BMI > 25 kg/m2 Swollen legs Varicose veins or History of unexplained or recurrent spontaneous Oral contraceptives or hormone replacement Sepsis (< 1 month) Serious lung disease, including pneumonia (< 1 month) Abnormal pulmonary function Acute myocardial infarction Congestive heart failure (< 1 month) History of inflammatory bowel disease Medical patient at bed rest Age 61-74 Arthroscopic surgery Major open surgery (> 45 min) Laparoscopic surgery (> 45 min) Malignancy Confined to bed (> 72 hours) Immobilizing plaster cast Central venous access Age >= 75 History of VTE Family history of VTE Factor V Leiden Prothrombin [id number] Lupus anticoagulant Anticardiolipin antibodies Elevated serum homocysteine Heparin-induced thrombocytopenia Other congenital or acquired thrombophilia Stroke (< 1 month) Elective arthroplasty Hip, pelvis, or leg fracture Acute spinal cord injury (< 1 month) Prophylaxis Regimen Total Risk Factor Score Risk Level Prophylaxis Regimen 0-1 Low Early ambulation 2 Moderate Order ONE of the following: *Sequential Compression Device (SCD) *Heparin 5000 units SQ BID 3-4 Higher Order ONE of the following medications: *Heparin 5000 units SQ TID *Enoxaparin/Lovenox 40 mg SQ daily (WT < 150 kg, CrCl > 30 mL/min) *Enoxaparin/Lovenox 30 mg SQ daily (WT < 150 kg, CrCl > 10-29 mL/min) *Enoxaparin/Lovenox 30 mg SQ BID (WT < 150 kg, CrCl > 30 mL/min) AND/OR *Sequential Compression Device (SCD) 5 or more Highest Order ONE of the following medications: *Heparin 5000 units SQ TID (Preferred with Epidurals) *Enoxaparin/Lovenox 40 mg SQ daily (WT < 150 kg, CrCl > 30 mL/min) *Enoxaparin/Lovenox 30 mg SQ daily (WT < 150 kg, CrCl > 10-29 mL/min) *Enoxaparin/Lovenox 30 mg SQ BID (WT < 150 kg, CrCl > 30 mL/min) AND *Sequential Compression Device (SCD) (Patrice Daniel MD, R1) Assessment and Plan Assessment and Plan Patient is a 81-year-old female with significant past medical history of A. fib on eliquis, asthma, and hypertension presented to the emergency room via ambulance due to symptoms of dizziness and shortness of breath. Patient mistakenly took both metoprolol (50mg) and cardizem (360mg) this morning. In the ED patient was found to have HR in the low 40s with continual sxs of dizziness. Patient admitted for observation of symptomatic bradycardia. Code Status Full code Discussed Condition With SDW Dr. Mims (Patrice Daniel MD, R1) Attending Attestation THIS CASE WAS DISCUSSED WITH THE RESIDENT PHYSICIANS. I HAVE REVIEWED THE RECORD AND AGREE WITH THE ABOVE NOTE AND PLAN OF CARE WAS DISCUSSED. I HAVE AUTHORIZED THE ORDER FOR ADMISSION TO AN IN-PATIENT STATUS. (Jackie Teran MD) Problem List: (1) Symptomatic bradycardia ICD Codes: R00.1 - Bradycardia, unspecified Status: Acute Plan: Patient mistakenly took both metoprolol (50mg) and Cardizem (360mg) this morning and developed sxs of dizziness, SOB and low BP. In the ED patient was found to have HR in the low 40s with continual sxs of dizziness. On exam SOB has slightly improve but pt still complaining of intermittent dizziness. VS during exam: HR ranging 40-60s, BP 123/58, O2 99% on 3L NC. No leukocytosis. CXR: Diffuse increased interstitial markings likely related to pulmonary venous hypertension and or mild edema. In the ED patient was found to be bradycardic with heart rate in the low 40s. She was given 1 bolus of normal saline. Cardizem med held Placed on telemetry atropine 0.5mg IVP given for low HR Patient will need readjustment and education of medication for her A fib and HTN. continue to monitor vs f/u am labs (2) Atrial fibrillation ICD Codes: I48.91 - Unspecified atrial fibrillation Status: Chronic Plan: Patient with diagnosed with A fib with RVR previously. EKG: A. fib with slow ventricular response. c/w eliquis hold cardizem until resolution of bradycardia patient placed on telemetry continue to monitor (3) Asthma ICD Codes: J45.909 - Unspecified asthma, uncomplicated Status: Chronic Plan: Patient wheezing on lung exam likely due to fluid overload after receiving NS bolus x1 in the ED. titrate oxygen as needed c/w symbicort inh BID duoneb PRN Q6h for SOB/wheezing albuterol PRN Q2h for SOB/wheezing (4) Sleep apnea ICD Codes: G47.30 - Sleep apnea, unspecified Plan: c/w BiPAP at night (5) GERD (gastroesophageal reflux disease) ICD Codes: K21.9 - GERD (gastroesophageal reflux disease) Status: Chronic Plan: c/w protonix 40mg daily (6) NATHALIE (acute kidney injury) ICD Codes: N17.9 - Acute kidney failure, unspecified Plan: Cr- 1.32 on admission will continue to monitor avoid nephrotoxic agents will hold off IVF fluids as patient is able to tolerate po intake and developed wheezing s/p 1 L NS in the ED (7) Nutrition, metabolism, and development symptoms ICD Codes: R63.8 - Other symptoms and signs concerning food and fluid intake Plan: Fluids: will hold off for now as pt developed wheezing after receiving 1 NS bolus. Electrolytes: replete as needed. Nutrition: heart healthy diet DVT ppx: c/w eliquis BID (Patrice Daniel MD, R1) Problem Qualifiers (1) Atrial fibrillation: Qualified Codes: I48.91 - Unspecified atrial fibrillation Patrice Daniel MD, R1 May 11, 2017 21:24 Jackie Teran MD May 12, 2017 14:23
[2017-05-11 21:36] VITALS: BP 114/50; PULSE 59; RESP 16; TEMP 97.5; O2SAT 95
[2017-05-11] MEDS: BUDESONIDE-FORMOTEROL 160/4.5 MCG INHALER INH SCH (22:30)
[2017-05-11] MEDS ORDERED: NALOXONE HCL 0.4 MG/ML AMP IV PUSH PRN (22:45)
[2017-05-11] MEDS ORDERED: SENNOSIDES 8.6 MG TAB PO PRN (22:45)
[2017-05-11] MEDS ORDERED: DOCUSATE SODIUM 50 MG/SENNA 8.6 MG TAB PO PRN (22:45)
[2017-05-11] MEDS ORDERED: RESP: ALBUTEROL 2.5 MG/IPRATROPIUM 0.5 MG NEB (PRN) NEB (22:45)
[2017-05-11] MEDS ORDERED: LACTULOSE SYRUP 20 GM/30 ML CUP PO PRN (22:45)
[2017-05-11] MEDS ORDERED: RESP: ALBUTEROL 1.25 MG/3 ML NEB (PRN) NEB (22:45)
[2017-05-11] MEDS ORDERED: ATROPINE SULFATE 1 MG/ML VIAL IV PUSH ONE (22:45)
[2017-05-11] MEDS ORDERED: BISACODYL 10 MG SUPP RECTAL PRN (22:45)
[2017-05-11] MEDS ORDERED: ONDANSETRON HCL 4 MG/2 ML VIAL IVP PRN (22:45)
[2017-05-11] MEDS ORDERED: MAGNESIUM HYDROXIDE SUSP 30 ML CUP PO PRN (22:45)
[2017-05-11] MEDS: APIXABAN 2.5 MG TABLET PO SCH (23:00)
[2017-05-11 23:30] VITALS: BP 129/58; PULSE 60; RESP 15; O2SAT 96
[2017-05-11 23:33] VITALS: BP 114/80; PULSE 61; RESP 18; TEMP 97.8; O2SAT 97
[2017-05-12] VITALS (11 sets, daily range): BP systolic 95–141; BP diastolic 51–80; PULSE 54–87; RESP 18; TEMP 97.1–99.3; O2SAT 90–97
[2017-05-12 07:14] LABS: AUTOMATED NEUTROPHIL # 10.1 TH/MM3 (1.8-7.7); BASOPHIL % 0.2 % (0.0-2.0); EOSINOPHIL % 0.2 % (0.0-4.0); HEMATOCRIT 26.9 % (35.0-46.0); HEMOGLOBIN 8.9 GM/DL (11.6-15.3); LYMPH % 12.5 % (9.0-44.0); LYMPHOCYTE # 1.6 TH/MM3 (1.0-4.8); MEAN CELL VOLUME 93.8 FL (80.0-100.0); MEAN CORPUSCULAR HGB CONC 33.1 % (32.0-36.0); MEAN PLATELET VOLUME 9.9 FL (7.0-11.0); MONO % 6.2 % (0.0-8.0); MONOCYTE # 0.8 TH/MM3 (0-0.9); NEUT % 80.9 % (16.0-70.0); PLATELET COUNT 141 TH/MM3 (150-450); RED BLOOD COUNT 2.87 MIL/MM3 (4.00-5.30); RED CELL DISTRIBUTION WIDTH 17.7 % (11.6-17.2); WHITE BLOOD COUNT 12.5 TH/MM3 (4.0-11.0)
[2017-05-12 07:53] LABS: ALBUMIN 2.8 GM/DL (3.4-5.0); ALKALINE PHOSPHATASE 83 U/L (45-117); ALT (GPT) 182 U/L (10-53); AST (GOT) 376 U/L (15-37); BICARBONATE 20.3 MEQ/L (21.0-32.0); BLOOD UREA NITROGEN 28 MG/DL (7-18); CALCIUM 8.1 MG/DL (8.5-10.1); CHLORIDE 105 MEQ/L (98-107); CREATININE 1.25 MG/DL (0.50-1.00); GLOMERULAR FILTRATION RATE 41 ML/MIN (>89); GLUCOSE,RANDOM 114 MG/DL (74-106); SODIUM (NA) 136 MEQ/L (136-145); TOTAL BILIRUBIN ADULT 0.5 MG/DL (0.2-1.0); TOTAL PROTEIN 6.5 GM/DL (6.4-8.2)
[2017-05-12] MEDS: PANTOPRAZOLE SOD 40 MG DELAYED RELEASE TAB PO SCH (07:54)
[2017-05-12] MEDS: APIXABAN 2.5 MG TABLET PO SCH ×2 (07:54→20:37)
[2017-05-12] MEDS: BUDESONIDE-FORMOTEROL 160/4.5 MCG INHALER INH SCH ×2 (07:55→21:07)
[2017-05-12] MEDS: FERROUS SULFATE 325 MG (65 MG ELEMENTAL IRON) TAB PO SCH ×2 (07:55→20:37)
[2017-05-12] MEDS: ATORVASTATIN 40 MG TAB PO SCH (07:55)
[2017-05-12] MEDS: MULTIVITAMIN TAB PO SCH (07:55)
--- NOTE | 2017-05-12 10:07 | RADRPT ---
EXAM DATE/TIME: 05/12/2017 09:36 [place] COMPARISON: CHEST SINGLE AP, May 11, 2017, 19:09. INDICATIONS : Shortness of breath. Chest pain. MEDICAL HISTORY : Chronic obstructive pulmonary disease. SURGICAL HISTORY : None. ENCOUNTER: Subsequent ACUITY: 2 days PAIN SCORE: 5/10 LOCATION: Bilateral chest FINDINGS: PA and lateral views of the chest were obtained again demonstrate mild cardiomegaly. Hazy perihilar o pacities are again noted with no focal consolidation or effusion. The bony thorax is intact and there are atherosclerotic changes in the aorta with calcification. Multiple overlying cardiac leads are pr esent. The bony thorax is unremarkable. CONCLUSION: No significant change. Mild cardiomegaly with mild hazy perihilar opacities which may represent mild pulmonary edema. Wes Combs MD on May 12, 2017 at 10:04 Board Certified Radiologist. This report was verified electronically.
--- NOTE | 2017-05-12 10:55 | HHI.DCPOC ---
Discharge Care Plan Diagnosis: (1) Symptomatic bradycardia (2) Atrial fibrillation Goals to Promote Your Health * To prevent worsening of your condition and complications * To maintain your health at the optimal level Directions to Meet Your Goals Take your medications as prescribed Follow your dietary instruction Follow activity as directed Keep your appointments as scheduled Take your immunizations and boosters as scheduled If your symptoms worsen call your PCP, if no PCP go to Urgent Care Center or Emergency Room Smoking is Dangerous to Your Health. Avoid second hand smoke Call the 24-hour hour crisis hotline for domestic abuse at Virginia Washburn MD R1 May 12, 2017 10:55
--- NOTE | 2017-05-12 12:53 | HHI.FPPN ---
Addendum to progress note ADDENDUM Reason for addendum: Additonal documentation Additional information please see resident history and physical for further documentation. Patient admitted with symptomatic bradycardia after taking her medications incorrectly and taking her B-boyd and Cardizem together. She is feeling much better now and back to her usual state of health. She denies any dizziness, lightheadedness, CP, sob. She wants to go home. On exam: Vital Signs Date Time Temp Pulse Resp B/P (MAP) Pulse Ox O2 Delivery O2 Flow Rate FiO2 05/12/17 12:00 98.5 69 18 115/59 (77) 90 05/12/17 07:30 2.00 05/12/17 02:54 Nasal Cannula Laboratory Tests Test 05/11/17 18:55 05/12/17 04:39 White Blood Count 10.7 TH/MM3 12.5 TH/MM3 Red Blood Count 3.30 MIL/MM3 2.87 MIL/MM3 Hemoglobin 10.3 GM/DL 8.9 GM/DL Hematocrit 31.5 % 26.9 % Mean Corpuscular Volume 95.4 FL 93.8 FL Mean Corpuscular Hemoglobin 31.3 PG 31.0 PG Mean Corpuscular Hemoglobin Concent 32.8 % 33.1 % Red Cell Distribution Width 18.3 % 17.7 % Platelet Count 164 TH/MM3 141 TH/MM3 Mean Platelet Volume 9.2 FL 9.9 FL Neutrophils (%) (Auto) 49.7 % 80.9 % Lymphocytes (%) (Auto) 30.7 % 12.5 % Monocytes (%) (Auto) 10.9 % 6.2 % Eosinophils (%) (Auto) 8.1 % 0.2 % Basophils (%) (Auto) 0.6 % 0.2 % Neutrophils # (Auto) 5.3 TH/MM3 10.1 TH/MM3 Lymphocytes # (Auto) 3.3 TH/MM3 1.6 TH/MM3 Monocytes # (Auto) 1.2 TH/MM3 0.8 TH/MM3 Eosinophils # (Auto) 0.9 TH/MM3 0.0 TH/MM3 Basophils # (Auto) 0.1 TH/MM3 0.0 TH/MM3 CBC Comment DIFF FINAL DIFF FINAL Differential Comment Prothrombin Time 11.4 SEC Prothromb Time International Ratio 1.1 RATIO Activated Partial Thromboplast Time 27.9 SEC Blood Urea Nitrogen 23 MG/DL 28 MG/DL Creatinine 1.32 MG/DL 1.25 MG/DL Random Glucose 191 MG/DL 114 MG/DL Total Protein 7.4 GM/DL 6.5 GM/DL Albumin 3.1 GM/DL 2.8 GM/DL Calcium Level 8.9 MG/DL 8.1 MG/DL Magnesium Level 2.3 MG/DL Alkaline Phosphatase 78 U/L 83 U/L Aspartate Amino Transf (AST/SGOT) 58 U/L 376 U/L Alanine Aminotransferase (ALT/SGPT) 35 U/L 182 U/L Total Bilirubin 0.5 MG/DL 0.5 MG/DL Sodium Level 136 MEQ/L 136 MEQ/L Potassium Level 5.1 MEQ/L 4.7 MEQ/L Chloride Level 103 MEQ/L 105 MEQ/L Carbon Dioxide Level 18.0 MEQ/L 20.3 MEQ/L Anion Gap 15 MEQ/L 11 MEQ/L Estimat Glomerular Filtration Rate 39 ML/MIN 41 ML/MIN Total Creatine Kinase 68 U/L Troponin I LESS THAN 0.02 NG/ML B-Type Natriuretic Peptide 202 PG/ML Current Medications Medications (Trade) Dose Ordered Sig/Cori Route PRN Reason Start Time Stop Time Status Last Admin Dose Admin Sodium Chloride (NS Flush) 2 ml UNSCH PRN IVF FLUSH AFTER USING IV ACCESS 05/11/17 18:45 05/12/17 03:06 Sodium Chloride 1,000 ml @ 1,000 mls/hr Q1H ONCE IV 05/11/17 18:44 05/11/17 19:43 DC 05/11/17 18:50 O. CONSTITUTIONAL/GEN: normally nourished, in NAD. EYES: conjunctiva normal, PERRLA, EOMI. ENT: Mouth and pharynx normal. NECK: thyroid midline, carotids symmetrical. LUNGS: clear A-P, respiratory effort is normal. CARDIOVASCULAR: irregular. No significant edema. GI/ABD: soft without masses, without organomegaly. : no CVA tenderness NEURO: No focal deficits. speech is normal SKIN: color normal, no rashes noted. HEME/LYMPH: no bruising, petechia or significant adenopathy MUSC: back is normal in appearance. Extremities are normal in appearance. PSYCH/MENTAL STATUS: Alert and oriented x 3. 1. symptomatic bradycardia - secondary to misuse of medication. Patient has been re-educated. This has resolved. Consider dc to home but her H/H has dropped and LFTs have bumped. Will repeat this afternoon --- if this stabilizes then consider dc with fu. This is Dr. Mims's patient and can be seen in the office on Sunday. If her repeat labs are concerning will keep her in the hospital to workup and treat. Patient seen and dw the resident team -- Dr. Washburn, Dr. Mims, Dr. Goodman Teran,Jackie So MD May 12, 2017 12:53
--- NOTE | 2017-05-12 14:20 | EKG ---
Date Performed: 05/11/2017 Time Performed: 18:39:19 PTAGE: 81 years EKG: ATRIAL FIBRILLATION WITH SLOW VENTRICULAR RESPONSE INCOMPLETE RIGHT BUNDLE BRANCH BLOCK MIN IMAL ST DEPRESSION Nonspecific T-wave changes ABNORMAL RHYTHM ECG Compared to PREVIOUS TRACING , the rate has slowed. PREVIOUS TRACIN02/20/2017 10.27.10 DOCTOR: Isac Vaca Interpretating Date/Time 05/12/2017 14:19:43
[2017-05-12 17:06] LABS: HEMATOCRIT 25.8 % (35.0-46.0); HEMOGLOBIN 8.6 GM/DL (11.6-15.3)
[2017-05-12 17:46] LABS: ALBUMIN 2.9 GM/DL (3.4-5.0); DIRECT BILIRUBIN ADULT 0.2 MG/DL (0.0-0.2)
[2017-05-12 17:49] LABS: INDIRECT BILIRUBIN 0.2 MG/DL (0.0-0.8); TOTAL BILIRUBIN ADULT 0.4 MG/DL (0.2-1.0); TOTAL PROTEIN 6.6 GM/DL (6.4-8.2)
[2017-05-12 21:42] LABS: BILIRUBIN, URINE NEG (NEG); BLOOD, URINE NEG (NEG); GLUCOSE,URINE NEG (NEG); KETONE, URINE NEG (NEG); NITRITE,URINE NEG (NEG); URINE COLOR LIGHT-YELLOW (YELLW/STRAW); URINE LEUKOCYTE ESTERASE NEG (NEG)
[2017-05-13 00:29] VITALS: PULSE 87
[2017-05-13 04:35] VITALS: BP 141/63; PULSE 96; RESP 17; TEMP 97; O2SAT 92
[2017-05-13 07:35] VITALS: PULSE 97
[2017-05-13 07:44] VITALS: BP 148/64; PULSE 97; RESP 18; TEMP 98.2; O2SAT 91
[2017-05-13] MEDS: FERROUS SULFATE 325 MG (65 MG ELEMENTAL IRON) TAB PO SCH (08:09)
[2017-05-13] MEDS: PANTOPRAZOLE SOD 40 MG DELAYED RELEASE TAB PO SCH (08:09)
[2017-05-13] MEDS: ATORVASTATIN 40 MG TAB PO SCH (08:09)
[2017-05-13] MEDS: MULTIVITAMIN TAB PO SCH (08:09)
[2017-05-13] MEDS: BUDESONIDE-FORMOTEROL 160/4.5 MCG INHALER INH SCH (08:10)
[2017-05-13] MEDS: APIXABAN 2.5 MG TABLET PO SCH (08:10)
[2017-05-13] MEDS ORDERED: ACETAMINOPHEN 325 MG TAB PO PRN (09:15)
--- NOTE | 2017-05-13 10:17 | HHI.FPPN ---
Subjective Remarks Patient states she is doing well today. Vitals stable and no acute events overnight. HR >70. HR was regular on tele, last time it was irregular was yesterday morning. Urinalysis was negative for infection, transaminitis trending downward. H/H performed yesterday was stable. Patient complains of headache today, requests Tylenol. (Virginia Washburn MD R1) Objective Vitals Vital Signs Date Time Temp Pulse Resp B/P (MAP) Pulse Ox O2 Delivery O2 Flow Rate FiO2 05/13/17 07:44 98.2 97 18 148/64 (92) 91 05/13/17 07:35 97 05/13/17 04:35 97.0 96 17 141/63 (89) 92 05/13/17 00:29 87 05/12/17 22:59 99.3 87 18 121/59 (79) 93 05/12/17 20:05 78 05/12/17 19:06 97.9 80 18 141/80 (100) 97 05/12/17 16:00 97.5 73 18 126/58 (80) 96 05/12/17 12:00 98.5 69 18 115/59 (77) 90 I/O 05/12/17 05/12/17 05/12/17 05/13/17 05/13/17 05/13/17 07:00 15:00 23:00 07:00 15:00 23:00 Intake Total 240 ml 600 ml 360 ml Balance 240 ml 600 ml 360 ml Intake Oral 240 ml 600 ml 360 ml # Voids 0 2 2 # Bowel Movements 0 0 0 (Virginia Washburn MD R1) Result Diagram: 05/12/17 1609 05/12/17 0439 Objective Remarks O. CONSTITUTIONAL/GEN: normally nourished, in NAD. EYES: conjunctiva normal, EOMI. ENT: Mouth and pharynx normal. LUNGS: clear A-P, respiratory effort is normal. CARDIOVASCULAR: without murmur or gallop. GI/ABD: soft without masses, without organomegaly. NEURO: No focal deficits. Gait is normal SKIN: color normal, no new rashes noted. MUSC: Extremities are normal in appearance. PSYCH/MENTAL STATUS: Alert and conversant, seems fatigued (Virginia Washburn MD R1) A/P Assessment and Plan Patient is a 81-year-old female with significant past medical history of A. fib on eliquis, asthma, and hypertension presented to the emergency room via ambulance due to symptoms of dizziness and shortness of breath. Patient mistakenly took both metoprolol (50mg) and cardizem (360mg) this morning. In the ED patient was found to have HR in the low 40s with continual sxs of dizziness. Patient admitted for observation of symptomatic bradycardia. Discharge Planning D/C today w/metoprolol 50 mg daily (Virginia Washburn MD R1) Attending Attestation Patient seen and examined. Case reviewed and discussed with the resident team. Agree with plan of care as discussed with me and documented in the resident note. (Jackie Teran MD) Problem List: (1) Symptomatic bradycardia ICD Codes: R00.1 - Bradycardia, unspecified Status: Acute Plan: Patient was hospitalized in February of this year for new onset afib w/ RVR. Was on home dose of metoprolol for HTN but this was transitioned to diltiazem 360 mg daily. Her metoprolol was discontinued and she was started on eliquis for anticoagulation w/Eliquis. Patient mistakenly took both metoprolol (50mg) and Cardizem (360mg) morning of admission and developed sxs of dizziness, SOB and low BP. In the ED patient was found to have HR in the low 40s with continual sxs of dizziness, s/p 1 bolus of NS CXR: Diffuse increased interstitial markings likely related to pulmonary venous hypertension and or mild edema. Cardizem med held, no metoprolol given this hospitalization Placed on telemetry atropine 0.5mg IVP given for low HR x1 Vital signs stable Patient does not like the cardizem. Will allow her to take metoprolol and follow up outpatient (2) Atrial fibrillation ICD Codes: I48.91 - Unspecified atrial fibrillation Status: Chronic Plan: Patient with diagnosed with A fib with RVR previously. EKG: A. fib with slow ventricular response. c/w eliquis patient placed on telemetry continue to monitor Metoprolol 50 mg after discharge (3) Asthma ICD Codes: J45.909 - Unspecified asthma, uncomplicated Status: Chronic Plan: Patient wheezing on lung exam likely due to fluid overload after receiving NS bolus x1 in the ED. This wheezing has significantly improved Has not required O2 c/w symbicort inh BID duoneb PRN Q6h for SOB/wheezing albuterol PRN Q2h for SOB/wheezing (4) Sleep apnea ICD Codes: G47.30 - Sleep apnea, unspecified Plan: c/w BiPAP at night (5) GERD (gastroesophageal reflux disease) ICD Codes: K21.9 - GERD (gastroesophageal reflux disease) Status: Chronic Plan: c/w protonix 40mg daily (6) NATHALIE (acute kidney injury) ICD Codes: N17.9 - Acute kidney failure, unspecified Plan: Cr- 1.32 on admission will continue to monitor avoid nephrotoxic agents (7) Nutrition, metabolism, and development symptoms ICD Codes: R63.8 - Other symptoms and signs concerning food and fluid intake Plan: Fluids: PO Electrolytes: replete as needed. Nutrition: heart healthy diet DVT ppx: c/w eliquis BID (Virginia Washburn MD R1) Problem Qualifiers (1) Atrial fibrillation: Qualified Codes: I48.91 - Unspecified atrial fibrillation Virginia Washburn MD R1 May 13, 2017 10:17 Jackie Teran MD May 13, 2017 13:29
[2017-05-13 11:28] VITALS: BP 118/80; PULSE 105; RESP 18; TEMP 97.9; O2SAT 91
[2017-05-13] MEDS ORDERED: METO1TAB9 PO (11:47)
== END 2017-05-13 14:50 | disposition home or self-care (01) | DRG 918 ==
LOC: NEPC 18:20 → NEDA 21:25 → N06A 23:33
PROVIDERS: ADMIT Family Medicine; ATTEND Family Medicine
DX: T44.7X1A Poisoning by beta-adrenoreceptor antagonists, accidental (unintentional), initial encounter (principal); N17.9 Acute kidney failure, unspecified; I95.9 Hypotension, unspecified; I48.91 Unspecified atrial fibrillation; E87.70 Fluid overload, unspecified; I45.10 Unspecified right bundle-branch block; R00.1 Bradycardia, unspecified; I25.10 Atherosclerotic heart disease of native coronary artery without angina pectoris; T46.1X1A Poisoning by calcium-channel blockers, accidental (unintentional), initial encounter; I10 Essential (primary) hypertension; E78.00 Pure hypercholesterolemia, unspecified; K21.9 Gastro-esophageal reflux disease without esophagitis; G47.30 Sleep apnea, unspecified; J45.909 Unspecified asthma, uncomplicated; R42 Dizziness and giddiness; M19.90 Unspecified osteoarthritis, unspecified site; Z79.01 Long term (current) use of anticoagulants; Z82.49 Family history of ischemic heart disease and other diseases of the circulatory system; Z87.891 Personal history of nicotine dependence
CPT/HCPCS: 71045; 71046; 80053; 80076; 81001; 82550; 83735; 83880; 84484; 85014; 85018; 85025; 85610; 85730; 93005; 96360; 96361; J0461; J2405; J7030

== ENCOUNTER → 2017-06-01 | Outpatient (CLI) | payer MEDICARE, MEDICAID ==
[~2017-06-01] MED LIST changes: -BEDSIDE COMMODE1 MI1; -CARD180C5 PO; -LACTCHW3 CHEW; +METO1TAB9 PO; +METO25TA3 PO; -PRED20 PO; +SPIR25TA PO
[2017-06-01 10:47] LABS: AUTOMATED NEUTROPHIL # 4.4 TH/MM3 (1.8-7.7); BASOPHIL # 0.1 TH/MM3 (0-0.2); BASOPHIL % 0.8 % (0.0-2.0); EOSINOPHIL % 12.2 % (0.0-4.0); HEMATOCRIT 32.9 % (35.0-46.0); HEMOGLOBIN 10.7 GM/DL (11.6-15.3); LYMPH % 21.9 % (9.0-44.0); LYMPHOCYTE # 1.9 TH/MM3 (1.0-4.8); MEAN CELL VOLUME 93.6 FL (80.0-100.0); MEAN CORPUSCULAR HEMOGLOBIN 30.5 PG (27.0-34.0); MEAN CORPUSCULAR HGB CONC 32.6 % (32.0-36.0); MONO % 12.9 % (0.0-8.0); MONOCYTE # 1.1 TH/MM3 (0-0.9); NEUT % 52.2 % (16.0-70.0); PLATELET COUNT 259 TH/MM3 (150-450); RED BLOOD COUNT 3.52 MIL/MM3 (4.00-5.30); RED CELL DISTRIBUTION WIDTH 17.7 % (11.6-17.2); WHITE BLOOD COUNT 8.5 TH/MM3 (4.0-11.0)
[2017-06-01 10:52] LABS: ALT (GPT) 32 U/L (10-53)
[2017-06-01 10:53] LABS: ALBUMIN 3.1 GM/DL (3.4-5.0); AST (GOT) 42 U/L (15-37); BICARBONATE 29.1 MEQ/L (21.0-32.0); BLOOD UREA NITROGEN 16 MG/DL (7-18); CALCIUM 9.3 MG/DL (8.5-10.1); CHLORIDE 103 MEQ/L (98-107); CREATININE 0.87 MG/DL (0.50-1.00); GLOMERULAR FILTRATION RATE 63 ML/MIN (>89); GLUCOSE,FASTING 80 MG/DL (74-99); SODIUM (NA) 137 MEQ/L (136-145)
[2017-06-01 10:54] LABS: ALKALINE PHOSPHATASE 74 U/L (45-117); TOTAL BILIRUBIN ADULT 0.4 MG/DL (0.2-1.0); TOTAL PROTEIN 7.8 GM/DL (6.4-8.2)
== END ==
LOC: CLAB 10:02
PROVIDERS: ATTEND Family Medicine
DX: R42 Dizziness and giddiness (principal); I48.91 Unspecified atrial fibrillation
CPT/HCPCS: 36415; 80053; 85025

== ENCOUNTER 2017-06-05 11:14 | Day surgery (SDC) | payer MEDICARE, MEDICAID ==
[~2017-06-05] VITALS: Ht 149.9 cm; Wt 55.9 kg
[~2017-06-05 11:14] MED LIST changes: -METO25TA3 PO; -SPIR25TA PO
[2017-06-05] MEDS ORDERED: IOHEXOL 350 MG/ML 50 ML BTL (for Cath Lab) OTHER ONE (11:15)
[2017-06-05] MEDS ORDERED: METO25TA3 PO (11:49)
[2017-06-05] MEDS ORDERED: SPIR25TA PO (11:49)
[2017-06-05 11:53] VITALS: BP 150/60; PULSE 58; RESP 18; TEMP 97.9; O2SAT 94
[2017-06-05] MEDS ORDERED: NS 1000P @30 MLS/HR (KVO) IV SCH (12:00)
[2017-06-05 12:10] LABS: AUTOMATED NEUTROPHIL # 4.3 TH/MM3 (1.8-7.7); BASOPHIL # 0.1 TH/MM3 (0-0.2); BASOPHIL % 0.6 % (0.0-2.0); EOSINOPHIL # 0.7 TH/MM3 (0-0.4); HEMATOCRIT 32.8 % (35.0-46.0); HEMOGLOBIN 10.7 GM/DL (11.6-15.3); LYMPHOCYTE # 1.9 TH/MM3 (1.0-4.8); MEAN CELL VOLUME 92.8 FL (80.0-100.0); MEAN CORPUSCULAR HEMOGLOBIN 30.3 PG (27.0-34.0); MEAN CORPUSCULAR HGB CONC 32.7 % (32.0-36.0); MONO % 13.6 % (0.0-8.0); MONOCYTE # 1.1 TH/MM3 (0-0.9); NEUT % 53.8 % (16.0-70.0); PLATELET COUNT 203 TH/MM3 (150-450); RED BLOOD COUNT 3.53 MIL/MM3 (4.00-5.30); WHITE BLOOD COUNT 8.1 TH/MM3 (4.0-11.0)
[2017-06-05 12:18] LABS: PROTHROMBIN TIME - PATIENT 10.3 SEC (9.8-11.6)
[2017-06-05] MEDS ORDERED: HEPARIN-NS/PF FLUSH BAG 2,000 ML IV FLUSH ONE (12:24)
[2017-06-05] MEDS ORDERED: LIDOCAINE HCL 1% PF 30 ML VIAL ONE (12:27)
[2017-06-05 12:28] LABS: BICARBONATE 29.6 MEQ/L (21.0-32.0); CALCIUM 9.2 MG/DL (8.5-10.1); CREATININE 0.81 MG/DL (0.50-1.00)
[2017-06-05] MEDS ORDERED: MIDAZOLAM HCL 2 MG/2 ML VIAL ONE (12:28)
--- NOTE | 2017-06-05 13:36 | CATHPROC ---
M-DISC HIS Report Study Information Study Number Admission Scheduled Start Study Start [id number] Jun 05 2017 11:14AM 06/05/2017 Jun 05 2017 12:27PM [employer] [facility] Cardiac Catheterization Admit Source Facility Department Other [facility] Physician and Clinical Staff Initial Pat Rust Material Attendant Corinna Durant,NIC Material Attendant Polo NunezRN Recorder Ana Lilia Moctezuma ,RT(R) Scrub Liyah Duenas,RT(R) Procedures Performed Procedure Location (Site) Vessel Name Angiogram LV LV Ventricle Coronary Angiograms LCA Left Coronary Coronary Angiograms RCA Right Coronary L Heart Cath Equipment Time Global Account Executive Description Size Mfg Part Number Used/Scraped TRANSDUCER, TRServerside GroupAVE [id number] 12:29 SINGH CHARLES * Used W/STOCKCOCK *[id number] INTRODUCER SET, 12:29 [employer] FR 5 [id number] *[id number] Used MICROPUNCTURE STIFF 538-476 *[id number] 538-420 *[id number] [id number] *[id number] 12:29 MED[employer] IND[employer]ES PACK, CCL CUSTOM * Used *[id number] 12:29 [employer] PACER PEN, SKIN DUAL W/ RULER * Used *[id number] 12:29 Catapult WIRE, 3MMJ .035 180CM 180CM Used *[id number] PROBE COVER, STERILE [id number] 12:29 [employer] Systems * Used ULTRASOUND W/ GEL *[id number] 12:29 NAMIC MANIFOLD, 4 PORT * Used *[id number] 12:29 NYCOMED OMNIPAQUE, 350 MG, 150ML 150ML [id number] Used [id number] 12:29 PARKER [employer] BLANKET,WARM AIR CCL * Used *[id number] 12:29 TERUMO MEDICAL SHEATH, FR4 TERUMO (10CM) FR 4 Used *[id number] History: Current Medications Medication Dosage/Unit Route Frequency Last Date/Time Taken Statins (any) Beta Isa History: Allergies Allergy Reaction No Known Allergies History: Risk Factors Family History of Hypertension Dyslipidemia Previous [place] Previous Heart Failure Premature CAD Yes Yes Yes No No Prior Valve Prior PCI Prior PCIDate Prior CABG Surgery No Yes 02/12/2005 No Cerebrovascular Peripheral Artery Chronic Lung On Dialysis Diabetes Disease Disease Disease No No No No No History: Stress Tests Stress or Imaging Studies Performed No History: Other Current Smoker Method Quit Packs a Day Years Used Pack Years No Cigarettes 40 Years Ago 1 25 25 Labs Hgb (g/dl) Hct (%) WBC (l/cumm) Platelets (thousands) 11.60-17.00 35.00-51.00 4.00-11.00 150.00-450.00 10.7 32.8 8.1 203 Glucose (mg/dl) BUN (mg/dl) Creatinine (mg/dl) BUN:Creatinine (1:x) 74.00-106.00 7.00-18.00 0.50-1.30 10.00-20.00 86 16 0.8 20 Na (meq/l) K (meq/l) Cl (meq/l) CO2 (mmol/L) 136.00-145.00 3.50-5.10 98.00-107.00 21.00-32.00 139 3.8 102 29.6 INR (PTT:PT) 0.90-1.10 1 CPK-MB (ng/ML) 0.50-3.60 Not Drawn Medication Medication Total Dose (Bolus/Oral) Medication Total Dosage/Unit 1% XYLOCAINE 20 mL FENTANYL 25 mcg VERSED 1 mg Medications (Bolus/Oral) Medication Time Given Dosage/Unit Administered By Reason FENTANYL 06/05/2017 12:46:22 PM 25 mcg Mayra, Polo 25 mcg FENTANYL given in lab by Polo Nunez RN in Left Antecubital via Peripheral IV. Ordered by Pat Preston. VERSED 06/05/2017 12:47:15 PM 1 mg Mayra, Polo 1 mg VERSED given in lab by Polo Nunez RN in Left Antecubital via Peripheral IV. Ordered by Pat Veloz. 1% XYLOCAINE 06/05/2017 12:49:50 PM 20 mL Pat Griffith 20 mL 1% XYLOCAINE given in lab by Pat Griffith in Right Groin via Subcutaneous. Ordered by Pat Mccall. Medication (Drip) Medication Time Given Dosage/Unit Concentration/Unit Diluent (ml) Solution IV Solutions 06/05/2017 12:27:51 PM 50 mL (IV) NaCl .9 Patient arrived on IV Solutions in Left Antecubital via Peripheral IV. Pump/Drip Flow using NaCl .9. Initial Case Assessment Cardiovascular HR Rhythm NIBP Chest Pain 70 reg 137/57 0 Edema Present Skin color Skin None Normal Warm Dry Circulatory - Right Pulses Dorsalis Pedis Femoral 1 2 Scale (0,1,2,3,4,d) Circulatory - Left Pulses Dorsalis Pedis Femoral 1 2 Scale (0,1,2,3,4,d) Circulatory - Lower Extremities Color Lower Right Color Lower Left Normal Normal Neurological State Oriented to time-place- Alert Moves all extremities person Respiration - General Respiration Rate SpO2 (%) (B/min) 20 95 Final Case Assessment Cardiovascular HR Rhythm NIBP Chest Pain 70 reg 137/57 0 Edema Present Skin color Skin None Normal Warm Dry Circulatory - Right Pulses Dorsalis Pedis Femoral 1 2 Scale (0,1,2,3,4,d) Circulatory - Left Pulses Dorsalis Pedis Femoral 1 2 Scale (0,1,2,3,4,d) Circulatory - Lower Extremities Color Lower Right Color Lower Left Normal Normal Neurological State Oriented to time-place- Alert Moves all extremities person Respiration - General Respiration Rate SpO2 (%) (B/min) 20 95 Chronological Log Time Study Chronological Log 12:22:13 Patient arrived via Bed. 12:22:21 Patient Name, D.O.B, / Armband Verified By R.N. 12:22:25 Consent signed by the physician and the patient and verified by the [facility] staff. 12:27:28 Pre-op and post- op instructions given; patient acknowledges understanding of instructions. 12:27:30 Verbal Stimulation=2 Physical Stimulation=2 Airway=2 Respiration=2 TOTAL=8. (0=absent, 1=li mited, 2=present) 12:27:35 Presedation assessment performed by [facility] RN. 12:27:46 Patient has been NPO for More than 6Hrs. 12:27:48 Skin Breakdown- none per patient 12:27:49 Patient Warmer Placed on the Table. 12:27:50 Perez Prominences Protected 12:27:51 A # 20 IV was noted in the Antecubital (left). Grade = 0 12:27:51 Patient arrived on IV Solutions in Left Antecubital via Peripheral IV. Pump/Drip Flow using NaCl .9. 12:27:52 History and physical on the chart or being dictated. Vitals capture started with the following parameters, Patient=Adult, Interval=5 min, Initial Pr eovotl=947 mmHg, 12:27:57 Deflation Rate=5 mmHg, Cuff placed on Left Arm Assessment: Initial Case, HR=70 BPM, Rhythm=reg, BIMK=710/57 mmhg, Chest Pain=0, Edema=None, Co marco=Normal, Skin = Warm, Dry Right Pulses: Mian Ped=1, Femoral=2 Left Pulses: Mian Ped=1, Femoral=2 12:27:59 Lower Right Extremities: Color=Normal Lower Left Extremities: Color=Normal Neurological: State=Alert, Ox3, [place] Respiration: Resp=20 B/min, SpO2=95 % 12:28:41 HR=75 bpm, HPCI=969/57 mmhg, SpO2=92.0 %, Resp=14 B/min, Pain=0, Neel=8, Padron=2 12:33:36 HR=72 bpm, NPGQ=120/59 mmhg, SpO2=94.0 %, Resp=12 B/min, Pain=0, Neel=8, Padron=2 12:34:59 Reference ECG taken 12:38:37 HR=76 bpm, UGZD=285/60 mmhg, SpO2=92.0 %, Resp=10 B/min, Pain=0, Neel=8, Padron=2 12:41:12 Bilateral groins prepped with 2% chlorhexidine, and draped after a 3 minute waiting time. 12:42:26 MD arrived. 12:43:38 HR=78 bpm, LGOU=159/78 mmhg, SpO2=96.0 %, Resp=16 B/min, Pain=0, Neel=8, Padron=2 12:44:25 Pressure channel 1 zeroed. 12:46:22 25 mcg FENTANYL given in lab by Polo Nunez RN in Left Antecubital via Peripheral IV. Ord ered by Pat Griffith. 12:47:15 1 mg VERSED given in lab by Polo Nunez RN in Left Antecubital via Peripheral IV. Ordered by Pat Griffith. Time Out. Correct patient, correct procedure, correct physician, power injector not loaded with contrast with surgical 12:47:28 team present. Time Out Concurred by MD and individual staff in procedure. 12:47:48 Case Start 12:48:39 HR=75 bpm, INJA=327/65 mmhg, SpO2=96.0 %, Resp=13 B/min, Pain=0, Neel=8, Padron=2 20 mL 1% XYLOCAINE given in lab by Pat Griffith in Right Groin via Subcutaneous. Ordered by Nacho, 12:49:50 Pat. 12:51:48 Access site was Right Femoral Artery. A INTRODUCER SET, MICROPUNCTURE STIFF FR 5 was advanced into the Fem Art (right) using the Perc utaneous 12:52:00 technique. A SHEATH, FR4 TERUMO (10CM) FR 4 was exchanged in the Fem Art (right). This was necessary in or niru to 12:52:11 accomodate a larger catheter. 12:53:42 HR=76 bpm, CZWL=118/55 mmhg, SpO2=92.0 %, Resp=13 B/min, Pain=0, Neel=8, Padron=2 A JL 4.0 INFINITI CATHETER FR 4 was advanced over a wire. OMNIPAQUE, 350 MG, 150ML 150ML was us ed for 12:53:57 injections. Recorded Pressure: Ao, HR=77, Condition=Condition 1 12:55:10 (Aorta) Ao 130/49/81 12:55:57 The LCA was injected and visualized at various angles. OMNIPAQUE, 350 MG, 150ML 150ML used . After removing the current catheter a 3DRC INFINITI CATHETER FR 4 was advanced over a WIRE, 3MM J .035 180CM 12:58:28 180CM. 12:58:37 HR=81 bpm, RPZM=929/53 mmhg, SpO2=92.0 %, Resp=13 B/min, Pain=0, Neel=8, Padron=2 13:01:10 The RCA was injected and visualized at various angles. OMNIPAQUE, 350 MG, 150ML 150ML used . After removing the current catheter a PIGTAIL ANG. INFINITI CATHETER FR 4 was advanced over a W SHARI, 3MMJ .035 13:01:41 180CM 180CM. 13:03:32 HR=66 bpm, RXBN=711/69 mmhg, SpO2=96.0 %, Resp=13 B/min, Pain=0, Neel=8, Padron=2 Recorded Pressure: LV, HR=75, Condition=Condition 1 13:04:48 (Left Ventricle) LV 131/4/10 13:06:47 The LV was injected at 10 cc/sec for a total of 32. OMNIPAQUE, 350 MG, 150ML 150ML used. Recorded Pressure: LV, Ao, HR=80, Condition=Condition 1 13:07:35 (Left Ventricle) LV 142/-13/16, (Aorta) Ao 138/42/84 13:07:50 Catheter was removed 13:07:54 Case End 13:08:39 HR=84 bpm, GCHT=744/49 mmhg, SpO2=97.0 %, Resp=21 B/min, Pain=0, Neel=8, Padron=2 Assessment: Final Case, HR=70 BPM, Rhythm=reg, JFFE=151/57 mmhg, Chest Pain=0, Edema=None, Col or=Normal, Skin = Warm, Dry Right Pulses: Mian Ped=1, Femoral=2 Left Pulses: Mian Ped=1, Femoral=2 13:09:22 Lower Right Extremities: Color=Normal Lower Left Extremities: Color=Normal Neurological: State=Alert, Ox3, [place] Respiration: Resp=20 B/min, SpO2=95 % 13:09:29 Catheter(s) removed without difficulty 13:10:18 No case complications noted. 13:10:30 Cine recording checked. 13:10:54 Bedside Report will be given. 13:10:57 A Left Heart Cath was performed. 13:13:22 Sheath removed; pressure applied to access site. 13:14:13 HR=81 bpm, GIAL=955/62 mmhg, SpO2=97.0 %, Resp=23 B/min, Pain=0, Neel=8, Padron=2 13:18:39 HR=78 bpm, OOXO=456/63 mmhg, SpO2=96.0 %, Resp=21 B/min, Pain=0, Neel=8, Padron=2 13:23:42 HR=78 bpm, UNMG=718/64 mmhg, SpO2=97.0 %, Resp=11 B/min, Pain=0, Neel=8, Padron=2 13:28:35 HR=73 bpm, FBVV=252/93 mmhg, Resp=7 B/min, Pain=0, Neel=8, Padron=2 13:34:13 HR=76 bpm, IHOH=368/65 mmhg, Resp=18 B/min, Pain=0, Neel=8, Padron=2 13:36:15 Sterile dressing applied to site 13:38:28 Patient moved to stretcher End Study - Contrast Media Used In Study Contrast Total Opened (mL) Total Used (mL) Total Wasted (mL) Omnipaque 65 65 0 End Study - Maximum Contrast Load Max Contrast Load (mL) 349.4 End Study - Radiation Exposure Fluoro Time (minutes) 2.4 End Study - Sheaths Sheaths Pulled By Sheath Hold Time (min) Liyah Duenas 22 End Study - Patient Disposition Complications Transferred To Interventional Outcome No Telemetry Bed No attempt made
--- NOTE | 2017-06-05 13:54 | MA ---
cc: Pat Griffith MD,Bart Mims,Carrie Crocker MD DATE: 06/05/2017 INDICATIONS FOR CATHETERIZATION: 1. Assess mitral regurgitation. 2. Assess coronaries. BRIEF HISTORY: This is a 81-year-old white female who used to be a patient of another welcome wagon hostess and was referred to Dr. Levine for evaluation for mitral valve repair. The patient also had an abnormal nuclear stress test. She was referred for heart catheterization. The risks of heart catheterization to include , bleeding, myocardial infarction, stroke, foreseen and unforeseen complications were reviewed. The patient appeared to completely understand the risks. PROCEDURAL STATEMENTS: The patient was draped and prepped in the usual manner. The right femoral artery was entered using a micropuncture technique with ultrasound. Via the 4-Syriac sheath, left and right coronary catheters were used to intubate the left and right coronary artery. Multiple angiographic views were carried out. A pigtail catheter was used to intubate the left ventricle. At the end of the procedure, all catheters and sheaths were removed. Manual pressure was applied until good hemostasis was achieved. The patient was returned to her room in stable condition. FINDINGS: I. HEMODYNAMICS: The aortic pressure was 138/42 with a mean of 84. The left ventricular pressure was 142 with a left ventricular end-diastolic pressure of 16 mm. There was no evidence of significant gradient on pullback across the LV outflow tract and aortic valve. II. LEFT VENTRICULOGRAM: The overall left ventricular ejection fraction was estimated at 60%. There was evidence of mild to moderate mitral regurgitation. III. CORONARIES: The left main was long and tortuous and had some mild diffuse disease. The left anterior descending artery was a large vessel and also had some very minimal intimal thickening, but no significant stenosis. There was a large first diagonal branch that was free of significant disease. Prior to this, there was a small diagonal branch has had some mild diffuse 20% disease. The left anterior descending artery was calcified. The ostium of the circumflex artery had some mild 25% disease. The obtuse marginal branch was a large branch and it is free of significant disease. The right coronary artery had some mild diffuse disease and its mid-section had a 30% stenosis. CONCLUSION: 1. Very mild diffuse disease, no significant stenosis. 2. Evidence of mild to moderate mitral regurgitation. PLAN: Medical management. No need for mitral valve surgery. MD YARELI Mancini/MARYLU , 01:22 PM , 01:53 PM
--- NOTE | 2017-06-06 09:50 | EKG ---
Date Performed: 06/05/2017 Time Performed: 12:04:40 PTAGE: 81 years EKG: Sinus bradycardia. Incomplete RBBB Right ventricular hypertrophy Abnormal ECG PREVIOUS TRACING : 05/11/2017 18.39 DOCTOR: Rik Rojo Interpretating Date/Time 06/06/2017 09:48:21
== END 2017-06-05 16:30 | disposition home or self-care (01) ==
LOC: HDOC 11:14 → HDIC 11:14 → HDOC 16:30
PROVIDERS: ATTEND Internal Medicine Cardiovascular Disease
DX: I34.0 Nonrheumatic mitral (valve) insufficiency (principal); I25.10 Atherosclerotic heart disease of native coronary artery without angina pectoris; I48.91 Unspecified atrial fibrillation; I27.20 Pulmonary hypertension, unspecified; Z79.01 Long term (current) use of anticoagulants
CPT/HCPCS: 80048; 85025; 85610; 85730; 93005; 93458; 99152; 99153; C1769; C1893; J1644; J2250; J3010; Q9967

== ENCOUNTER → 2017-06-28 | Outpatient (CLI) | payer MEDICARE, MEDICAID ==
[~2017-06-28] VITALS: Ht 149.9 cm; Wt 57.4 kg
[~2017-06-28] MED LIST changes: -AMBI5TAB PO; +CHLORHEXIDINE GLUCONATE 2 % 1 PACK (2 CLOTHS) TOPICAL PRN; +DEXTROSE 5%-LACTATED RING INJ 1,000 ML IV SCH; -FERR325T20 PO; +LACTATED RINGER'S 1000 ML IV PRN; +LIDOCAINE HCL 1% PF 5 ML SYRINGE OTHER ONE; -METO1TAB9 PO; +METO25TA3 PO; +METOPROLOL TARTRATE 25 MG TAB PO PRN; -MIRA3350 PO; -MULTTAB67 PO; +POVIDONE IODINE 5% (ANTISEPSIS KIT) 4 APPLICATIONS EACH NARE PRN; +PROPOFOL 200 MG/20 ML AMP IV ONE; +SODIUM CHLORID 0.9% 500 ML IV PRN; +SPIR25TA PO; -SYMB160A INH; -WALKER WHEELS/F1 MIS; -shower chair
--- NOTE | 2017-06-28 10:13 | GIPROC ---
[facility] [address] [facility]. [facility], [address] EGD PROCEDURE REPORT EXAM DATE: 06/28/2017 PATIENT NAME: Catrina Perea I MR #: [id number] BIRTHDATE: 1935 ATTENDING: Manuela Willett MD ORDER #: [id number] FINAL FINISHER: Tiana Webber and Karen Escobar STATUS: outpatient INDICATIONS: The patient is a 81 yr old female here for an EGD due to reflux history of Watkins's PROCEDURE PERFORMED: EGD w/ biopsy MEDICATIONS: None and Per Anesthesia. TOPICAL ANESTHETIC: none CONSENT: The patient understands the risks and benefits of the procedure and understands that these risks include, but are not limited to: sedation, allergic reaction, infection, perforation and/or bleeding. Alternative means of evaluation and treatment include, among others: physical exam, x-rays, and/or surgical intervention. The patient elects to proceed with this endoscopic procedure. medical equipment was checked for proper function. Hand hygiene and appropriate measures for infection prevention was taken. After the risks, benefits and alternatives of the procedure were thoroughly explained, Informed consent was verified, confirmed and timeout was successfully executed by the treatment team. The patient was anesthetized with topical anesthesia and the EC-3490Li (Pedi C) endoscope was introduced through the mouth and advanced to the second portion of the duodenum. Retroflexed views revealed a hiatal hernia The gastroscope was then slowly withdrawn and removed. Duodenum normal-biopsy gastritis antrum-biopsy esophagitis distal esophagus-biopsy. ADVERSE EVENTS: There were no complications. IMPRESSIONS: 1. Duodenum normal-biopsy gastritis antrum-biopsy esophagitis distal esophagus-biopsy 2. Retroflexed views revealed a hiatal hernia RECOMMENDATIONS: 1. Anti-reflux regimen 2. Trial of Ranitidine 150 mg po bid d/c Pantoprazole PATIENT CONDITION: stable DISPOSITION: Home REPEAT EXAM: Return 3 years EGD Manuela Willett MD eSigned: Manuela Willett MD 06/28/2017 10:13 AM cc: [facility]
--- NOTE | 2017-06-28 10:16 | GIPROC ---
[facility] [address] [facility]. [facility], [address] COLONOSCOPY PROCEDURE REPORT EXAM DATE: 06/28/2017 PATIENT NAME: Catrina Perea I MR #: [id number] BIRTHDATE: 1935 ENDOSCOPIST: Manuela Willett MD ORDER #: [id number] ASSOCIATE ENGINEER: Tiana Webber and Karen Escobar STATUS: outpatient INDICATIONS: The patient is a 81 yr old female here for a colonoscopy due to poor prep on previous colonoscopy, anemia, history of ischemic colitis PROCEDURE PERFORMED: Colonoscopy with biopsy MEDICATIONS: None and Per Anesthesia. PREP QUALITY: good PREP TYPE:Other: ESTIMATED BLOOD LOSS: None CONSENT: The patient understands the risks and benefits of the procedure and understands that these risks include, but are not limited to: sedation, allergic reaction, infection, perforation and/or bleeding. Alternative means of evaluation and treatment include, among others: physical exam, x-rays, and/or surgical intervention. The patient elects to proceed with this endoscopic procedure. medical equipment was checked for proper function. Hand hygiene and appropriate measures for infection prevention was taken. After the risks, benefits and alternatives of the procedure were thoroughly explained, Informed consent was verified, confirmed and timeout was successfully executed by the treatment team. A digital exam revealed external hemorrhoids The Pentax EC-[id number] endoscope was introduced through the anus and advanced to the cecum, which was identified by both the appendix and ileocecal valve. The instrument was then slowly withdrawn as the colon was fully examined. COLON FINDINGS: Diverticulosis sigmoid,descending melanosis coli diminutive polyp ascending-cold biopsy with complete removal. Retroflexed views revealed internal hemorrhoids and Retroflexed views revealed medium internal hemorrhoids The scope was then completely withdrawn from the patient and the procedure terminated. PROCEDURE WITHDRAWAL TIME:6minutes ADVERSE EVENTS: There were no complications. IMPRESSIONS: 1. Diverticulosis sigmoid,descending melanosis coli diminutive polyp ascending-cold biopsy with complete removal 2. Retroflexed views revealed internal hemorrhoids 3. Retroflexed views revealed medium internal hemorrhoids 4. Revealed external hemorrhoids RECOMMENDATIONS: 1. Await biopsy results. Biopsy results will not be ready for 7-10 days. If you don't hear from us in two weeks, call our office for results. 2. Benefiber 2 tsp daily 3. High fiber diet 4. Probiotics from any [facility] or health food store 5. Yearly rectal exams 6. Cbc occult blood test ok to restart anticoagulation today RECALL: Return 5 years Colonoscopy Manuela Willett MD eSigned: Manuela Willett MD 06/28/2017 10:16 AM cc: [facility] PATIENT NAME: Payam Pereamen Fifi MR#: [id number]
[2017-06-28 10:17] VITALS: BP 136/63; PULSE 60; RESP 16; TEMP 97.5; O2SAT 97
== END ==
LOC: HEND 08:18
PROVIDERS: ATTEND Internal Medicine Gastroenterology
DX: K44.9 Diaphragmatic hernia without obstruction or gangrene (principal); K21.9 Gastro-esophageal reflux disease without esophagitis; K29.50 Unspecified chronic gastritis without bleeding; D12.2 Benign neoplasm of ascending colon; K64.1 Second degree hemorrhoids; K64.4 Residual hemorrhoidal skin tags; K57.30 Diverticulosis of large intestine without perforation or abscess without bleeding; D64.9 Anemia, unspecified
CPT/HCPCS: 00813; 43239; 45380; 88305; 88312; J7120

== ENCOUNTER → 2017-07-16 | Outpatient (CLI) | payer MEDICARE, MEDICAID ==
[~2017-07-16] MED LIST changes: -CHLORHEXIDINE GLUCONATE 2 % 1 PACK (2 CLOTHS) TOPICAL PRN; -DEXTROSE 5%-LACTATED RING INJ 1,000 ML IV SCH; -LACTATED RINGER'S 1000 ML IV PRN; -LIDOCAINE HCL 1% PF 5 ML SYRINGE OTHER ONE; -METOPROLOL TARTRATE 25 MG TAB PO PRN; -POVIDONE IODINE 5% (ANTISEPSIS KIT) 4 APPLICATIONS EACH NARE PRN; -PROPOFOL 200 MG/20 ML AMP IV ONE; -SODIUM CHLORID 0.9% 500 ML IV PRN; -SPIR25TA PO
[2017-07-16 11:40] LABS: AUTOMATED NEUTROPHIL # 4.9 TH/MM3 (1.8-7.7); BASOPHIL % 0.5 % (0.0-2.0); EOSINOPHIL # 0.6 TH/MM3 (0-0.4); EOSINOPHIL % 6.4 % (0.0-4.0); HEMATOCRIT 32.9 % (35.0-46.0); LYMPH % 24.1 % (9.0-44.0); LYMPHOCYTE # 2.1 TH/MM3 (1.0-4.8); MEAN CELL VOLUME 93.7 FL (80.0-100.0); MEAN CORPUSCULAR HEMOGLOBIN 31.4 PG (27.0-34.0); MEAN CORPUSCULAR HGB CONC 33.5 % (32.0-36.0); MEAN PLATELET VOLUME 9.1 FL (7.0-11.0); MONO % 11.3 % (0.0-8.0); NEUT % 57.7 % (16.0-70.0); PLATELET COUNT 161 TH/MM3 (150-450); RED BLOOD COUNT 3.51 MIL/MM3 (4.00-5.30); RED CELL DISTRIBUTION WIDTH 17.3 % (11.6-17.2); WHITE BLOOD COUNT 8.6 TH/MM3 (4.0-11.0)
== END ==
LOC: CLAB 10:44
PROVIDERS: ATTEND Internal Medicine Gastroenterology
DX: D64.9 Anemia, unspecified (principal)
CPT/HCPCS: 36415; 85025

== ENCOUNTER → 2017-07-19 | Outpatient (CLI) | payer MEDICARE, MEDICAID | LOC: CLAB 10:44 | PROVIDERS: ATTEND Internal Medicine Gastroenterology | DX: D64.9 Anemia, unspecified (principal) | CPT/HCPCS: 82272 ==

== ENCOUNTER → 2017-08-03 | Outpatient (CLI) | payer MEDICARE ==
[2017-08-03 10:34] LABS: AUTOMATED NEUTROPHIL # 3.9 TH/MM3 (1.8-7.7); BASOPHIL # 0.1 TH/MM3 (0-0.2); BASOPHIL % 0.9 % (0.0-2.0); EOSINOPHIL # 0.5 TH/MM3 (0-0.4); EOSINOPHIL % 6.5 % (0.0-4.0); HEMATOCRIT 32.5 % (35.0-46.0); HEMOGLOBIN 10.9 GM/DL (11.6-15.3); LYMPH % 27.3 % (9.0-44.0); MEAN CELL VOLUME 93.2 FL (80.0-100.0); MEAN CORPUSCULAR HEMOGLOBIN 31.2 PG (27.0-34.0); MEAN CORPUSCULAR HGB CONC 33.5 % (32.0-36.0); MEAN PLATELET VOLUME 9.3 FL (7.0-11.0); MONO % 12.8 % (0.0-8.0); MONOCYTE # 0.9 TH/MM3 (0-0.9); NEUT % 52.5 % (16.0-70.0); PLATELET COUNT 182 TH/MM3 (150-450); RED BLOOD COUNT 3.49 MIL/MM3 (4.00-5.30); RED CELL DISTRIBUTION WIDTH 17.8 % (11.6-17.2); WHITE BLOOD COUNT 7.4 TH/MM3 (4.0-11.0)
[2017-08-03 11:10] LABS: ALBUMIN 3.4 GM/DL (3.4-5.0); AST (GOT) 31 U/L (15-37); BICARBONATE 27.2 MEQ/L (21.0-32.0); BLOOD UREA NITROGEN 16 MG/DL (7-18); CALCIUM 9.2 MG/DL (8.5-10.1); CHLORIDE 97 MEQ/L (98-107); CREATININE 0.84 MG/DL (0.50-1.00); GLOMERULAR FILTRATION RATE 65 ML/MIN (>89); GLUCOSE,FASTING 84 MG/DL (74-99); SODIUM (NA) 132 MEQ/L (136-145)
[2017-08-03 11:11] LABS: CHOLESTEROL 176 MG/DL (120-200); TRIGLYCERIDES 114 MG/DL (42-150)
[2017-08-03 11:21] LABS: ALKALINE PHOSPHATASE 64 U/L (45-117); ALT (GPT) 27 U/L (10-53); CHOLESTEROL/ HDL RATIO 2.96 RATIO; DIRECT BILIRUBIN ADULT 0.1 MG/DL (0.0-0.2); FREE T4 1.12 NG/DL (0.76-1.46); HDL CHOLESTEROL 59.4 MG/DL (40.0-60.0); INDIRECT BILIRUBIN 0.3 MG/DL (0.0-0.8); LDL CHOLESTEROL 94 MG/DL (0-99); TOTAL BILIRUBIN ADULT 0.4 MG/DL (0.2-1.0); TOTAL PROTEIN 7.5 GM/DL (6.4-8.2)
[2017-08-03 22:28] LABS: HEMOGLOBIN A1C 6.1 % (4.3-6.0)
== END ==
LOC: CLAB 09:50
PROVIDERS: ATTEND Internal Medicine Cardiovascular Disease
DX: R07.2 Precordial pain (principal); I65.23 Occlusion and stenosis of bilateral carotid arteries; I34.0 Nonrheumatic mitral (valve) insufficiency; E78.2 Mixed hyperlipidemia; I10 Essential (primary) hypertension; R73.01 Impaired fasting glucose; Z79.899 Other long term (current) drug therapy
CPT/HCPCS: 36415; 80048; 80061; 80076; 83036; 84439; 84443; 84480; 85025

== ENCOUNTER 2018-01-20 22:58 | Observation (INO) ==
--- NOTE | 2018-01-20 23:41 | ED ---
HPI General Chief complaint: Hypertension Stated complaint: HBP complaint/headache Time Seen by Provider: 01/20/18 23:27 History of Present Illness HPI narrative: 82-year-old female with history of hypertension, coronary artery disease status post catheterization, and carotid artery stenosis currently on Eliquis presents to the ED today from home due to high blood pressure and chest tightness. She reports feeling chest tightness this morning at [employer] and went home to check her blood pressure. She found her blood pressure to be systolic in the 200s and started taking extra metoprolol to bring it down. She reports taking 4 pills of metoprolol tartrate 25 mg and 1 pill of doxazosin 2 mg. The blood pressure did not come down the patient decided to come to the ED. Patient reports chest tightness, but denies any shortness of breath, cough, radiating pain, nausea, vomiting, diaphoresis, or lightheadedness. She reports no alleviating or worsening factors. She reports prior history of similar symptoms when her blood pressure is high. She is followed by cardiology was recently prescribed doxazosin 2 weeks ago to help control her blood pressure. She does not smoke does not drink does not do any illicit drugs. Related Data Home Medications Medication Instructions Recorded Confirmed Iron (ferrous sulfate) 1 tab PO BID 10/12/17 01/21/18 rosuvastatin [Crestor] 20 mg PO DAILY 10/12/17 01/21/18 doxazosin 2 mg PO DAILY 01/20/18 01/20/18 sodium chloride 500 mg PO BID 01/20/18 01/21/18 apixaban 2.5 mg PO BID 01/21/18 01/21/18 lansoprazole 30 mg PO BID 01/21/18 01/21/18 metoprolol tartrate 25 mg PO DAILY 01/21/18 01/21/18 Allergies Allergy/AdvReac Type Severity Reaction Status Date / Time diltiazem Allergy Unknown I ALMOST Verified 01/20/18 23:11 "NO HEART BEAT" Review of Systems Constitutional Denies chills and Denies fever(s) ENT Denies headache(s) and Denies sinus pain Cardiovascular Reports chest pain (Tightness), Reports chest pain at rest (Tightness), Denies irregular heart rhythm, Denies palpitations and Denies dyspnea Respiratory Denies cough and Denies dyspnea Gastrointestinal Denies diarrhea, Denies nausea and Denies vomiting Genitourinary Denies urinary frequency and Denies urinary urgency Musculoskeletal Denies myalgias and Denies arthralgias Integumentary/Breasts Denies rash Neurologic Denies dizziness and Denies headache(s) PENDING SALE TO [facility] Social History Social History Substance History: No History of Abuse Second Hand Smoke Exposure: No Smoking Status: Former smoker Tobacco Type: Cigarettes How Often Do You Have a Drink Containing Alcohol: Monthly or less Recent Travel in [facility] [place] within the Last 8 Weeks: No Recent Out of Country Travel within the Last 8 Weeks: No Immunization History Tetanus Immunization: >5 Years Exam Narrative Exam Narrative: GENERAL: Well-appearing female in no acute distress SKIN: Focused skin assessment warm/dry. HEAD: Atraumatic. Normocephalic. EYES: Pupils equal and round. No scleral icterus. No injection or drainage. ENT: No nasal bleeding or discharge. Mucous membranes pink and moist. NECK: Trachea midline. No JVD. CARDIOVASCULAR: Regular rate and rhythm. No murmur appreciated. RESPIRATORY: No accessory muscle use. Coarse breath sounds bilaterally at bases. GASTROINTESTINAL: Abdomen soft, non-tender, nondistended. Hepatic and splenic margins not palpable. MUSCULOSKELETAL: No obvious deformities. No clubbing. No cyanosis. No edema. NEUROLOGICAL: Awake and alert. No obvious cranial nerve deficits. Motor grossly within normal limits. Normal speech. PSYCHIATRIC: Appropriate mood and affect; insight and judgment normal. Course Initial Documented Vital Signs Temperature 97.7 F 01/20/18 23:05 Pulse Rate 75 01/20/18 23:05 Respiratory Rate 20 01/20/18 23:05 Blood Pressure 220/86 H 01/20/18 23:05 Pulse Oximetry 96 01/20/18 23:05 Last Documented Vital Signs Temperature 98.2 F 01/21/18 08:00 Pulse Rate 61 01/21/18 08:00 Respiratory Rate 16 01/21/18 08:00 Blood Pressure 109/53 L 01/21/18 08:00 Pulse Oximetry 96 01/21/18 08:00 Medical Decision Making [facility] Narrative Medical decision making narrative: Is an 82-year-old female with a history of hypertension, coronary artery disease status post catheterization, carotid artery stenosis currently on Eliquis who presented the ED with her friend for chest tightness and high blood pressure for 1 day. She reports symptoms began at [employer] which point she knows her blood pressure was in the 200s systolically. She tried taking 4 pills of metoprolol tartrate 25 mg and 1 pill doxazosin 2 mg to try to bring the blood pressure down and relieve her chest tightness. When this failed she decided to come to the ED. She reports having similar issues in the past when her blood pressure has been high. She is currently followed by cardiology for her blood pressure was just placed on doxazosin 2 weeks ago to help control it. She denied any fever, chills, recent illnesses, cough, shortness of breath, nausea, vomiting, radiating pain, or lightheadedness. On arrival her blood pressure was 220/86, HR 75, RR 20, temp 97.5, 100% O2 on room air. On repeat vitals her blood pressure decreased to 178 /80. On exam she was well-appearing in no acute distress. Cardio exam revealed a regular rate and rhythm without murmurs rubs or gallops. Pulmonary exam revealed crackles and wheezing. Rest of exam was unremarkable. 0.4 mg sublingual nitro given for her chest tightness. Chest pain workup was initiated with a CBC, CMP, chest x-ray, EKG, troponin, CK-MB, BNP, lipase, and coag studies. EKG shows NSR, no ST elevation or depression, and no arrhythmias. No significant T-wave inversions. Chest x-ray showed no acute cardiopulmonary disease. CBC revealed normocytic anemia of 9.7 which is stable from previous studies. There was no leukocytosis or platelet abnormalities. CMP revealed hyponatremia of 129 hypochloremia of 96 and decreased GFR 69 all of which have been stable for years. BNP was elevated at 359 which has also been stable for years I, Dr. Barreto, have reviewed the medical student's documentation, and I am in agreement, met with the patient face to face, made the diagnosis, and the medical decision making was done by me. The patient was initially evaluated by MS ZAC Epps. Please see their complete history and physical. *My assessment and Findings: The patient presents with a reported history of throughout the day having shortness of breath worsened with exertion, therefore she took her blood pressure and noted that it was elevated. She reports that she is taking 3 extra doses of her blood pressure medication without any improvement. The patient reports having a chest tightness associated with her shortness of breath. She reports that one week ago she had a left-sided chest pain. She denies any prior history of myocardial infarction or congestive heart failure, however she reports that she was diagnosed with a leaky heart valve earlier in the year. She denies being on any diuretics. She does report having some lower extremity edema, however she reports that this is chronic and comes and goes. She denies having any calf pain or erythema. The patient is anticoagulated on Eliquis related to a carotid artery stenosis. She reports that she did take this earlier today. The patient's examination is remarkable for soft expiratory wheezes anteriorly and posteriorly with crackles audible bilateral lung bases. The patient has trace pedal edema. No calf pain on palpation. No audible cardiac murmur. Regular rate and rhythm on cardiac auscultation. During the course of the patient's emergency department visit, the patient's history, examination, and differential diagnosis were reviewed with the patient. The patient was placed on a potline monitor with oximetry and frequent blood pressure monitoring. The patient had IV access obtained and blood work sent for analysis. The patient was initially provided nitroglycerin sublingual every 5 minutes x3 as needed chest pain. The patient was given nitroglycerin 1 inch to the chest wall. The patient was given clonidine 0.1 p.o. x1 for hypertension. The patient's diagnostic studies were reviewed and remarkable for a CBC that shows a white count of 10.5, hemoglobin 9.7, platelets 167 in a patient with a history of anemia 10 on prior evaluation, monocytes 12.5, PT is 10.2, PTT 28.9. Chemistries remarkable for sodium of 129 in a patient with a history of hyponatremia, her last sodium was 126, GFR of 69, Cardiac enzymes within normal limits, lipase 70, BNP is 359. The patient's BNP has been elevated in the past , however as the patient does have crackles on exam she was given Lasix 40 mg IV. Patient's chest x-ray was read as showing no acute cardiopulmonary disease by the reading radiologist. The patient's electronic medical record was reviewed and in May she did have coronary artery disease noted, therefore the patient will be admitted to the chest pain center for rule out serial cardiac enzyme protocol and consideration of stress testing. The patient's results were discussed with the patient, including the plan of care. I explained that further testing and/ or monitoring is indicated based on the patient's history, examination, and/ or laboratory findings. Therefore, I recommended admission for additional evaluation. The patient expressed understanding and was agreeable with this plan. The patient was admitted to the hospital in stable condition and sent to a bed under the care of the [facility]. Medical Screen Exam Complete: Yes Emergency Medical Condition: Yes Differential Diagnosis Differential Diagnosis: Acute coronary syndrome, versus pulmonary edema, versus COPD exacerbation, versus pulmonary embolism Medical Records Medical records reviewed: Yes I reviewed the patient's medical records. Lab Data Lab results reviewed: Yes I reviewed the patient's lab results. Result diagrams: 01/20/18 23:35 01/20/18 23:35 Lab Results 01/20/18 01/20/18 01/20/18 Range/Units 23:35 23:35 23:35 WBC 10.5 (4.0-11.0) th/mm3 RBC 2.91 L (4.00-5.30) mil/mm3 Hgb 9.7 L (11.6-15.3) gm/dL Hct 28.7 L (35.0-46.0) % MCV 98.7 (80.0-100.0) fL MCH 33.4 (27.0-34.0) pg MCHC 33.9 (32.0-36.0) % RDW 15.1 (11.6-17.2) % Plt Count 167 (150-450) th/mm3 MPV 8.6 (7.0-11.0) fL Neut % (Auto) 65.6 (16.0-70.0) % Lymph % (Auto) 16.3 (9.0-44.0) % [place] % (Auto) 12.5 H (0.0-8.0) % Eos % (Auto) 5.0 H (0.0-4.0) % Baso % (Auto) 0.6 (0.0-2.0) % Neut # (Auto) 6.9 (1.8-7.7) th/mm3 Lymph # (Auto) 1.7 (1.0-4.8) th/mm3 [place] # (Auto) 1.3 H (0.0-0.9) th/mm3 Eos # (Auto) 0.5 H (0.0-0.4) th/mm3 Baso # (Auto) 0.1 (0.0-0.2) th/mm3 WBC Differential . Differential Comment Auto diff final PT (9.8-11.6) sec INR Ratio APTT (23.4-31.7) sec Sodium 129 L (136-145) meq/L Potassium 4.4 (3.5-5.1) meq/L Chloride 96 L (98-107) meq/L Carbon Dioxide 26.9 (21.0-32.0) meq/L Anion Gap 6 (5-15) meq/L BUN 13 (7-18) mg/dL Creatinine 0.80 (0.50-1.00) mg/dL Estimated GFR 69 L (>89) mL/min Random Glucose 100 (74-106) mg/dL Calcium 9.0 (8.5-10.1) mg/dL Magnesium 1.9 (1.5-2.5) mg/dL Total Bilirubin 0.3 (0.2-1.0) mg/dL AST 24 (15-37) U/L ALT 23 (10-53) U/L Alkaline Phosphatase 68 (45-117) U/L Total Creatine Kinase 100 (26-192) U/L Troponin I Less than 0.02 L (0.02-0.05) ng/mL B-Natriuretic Peptide 359 H (0-100) pg/mL Total Protein 7.1 (6.4-8.2) g/dL Albumin 3.6 (3.4-5.0) g/dL Lipase 70 L (73-393) U/L 01/20/18 01/21/18 01/21/18 Range/Units 23:35 03:20 05:25 WBC (4.0-11.0) th/mm3 RBC (4.00-5.30) mil/mm3 Hgb (11.6-15.3) gm/dL Hct (35.0-46.0) % MCV (80.0-100.0) fL MCH (27.0-34.0) pg MCHC (32.0-36.0) % RDW (11.6-17.2) % Plt Count (150-450) th/mm3 MPV (7.0-11.0) fL Neut % (Auto) (16.0-70.0) % Lymph % (Auto) (9.0-44.0) % [place] % (Auto) (0.0-8.0) % Eos % (Auto) (0.0-4.0) % Baso % (Auto) (0.0-2.0) % Neut # (Auto) (1.8-7.7) th/mm3 Lymph # (Auto) (1.0-4.8) th/mm3 [place] # (Auto) (0.0-0.9) th/mm3 Eos # (Auto) (0.0-0.4) th/mm3 Baso # (Auto) (0.0-0.2) th/mm3 WBC Differential Differential Comment PT 10.2 (9.8-11.6) sec INR 1.0 Ratio APTT 28.9 (23.4-31.7) sec Sodium (136-145) meq/L Potassium (3.5-5.1) meq/L Chloride (98-107) meq/L Carbon Dioxide (21.0-32.0) meq/L Anion Gap (5-15) meq/L BUN (7-18) mg/dL Creatinine (0.50-1.00) mg/dL Estimated GFR (>89) mL/min Random Glucose (74-106) mg/dL Calcium (8.5-10.1) mg/dL Magnesium (1.5-2.5) mg/dL Total Bilirubin (0.2-1.0) mg/dL AST (15-37) U/L ALT (10-53) U/L Alkaline Phosphatase (45-117) U/L Total Creatine Kinase 73 77 (26-192) U/L Troponin I Less than 0.02 L Less than 0.02 L (0.02-0.05) ng/mL B-Natriuretic Peptide (0-100) pg/mL Total Protein (6.4-8.2) g/dL Albumin (3.4-5.0) g/dL Lipase (73-393) U/L Imaging Data Radiologist's impression: Chest X-Ray 01/20/18 23:31 CONCLUSION: No acute cardiopulmonary disease identified. ECG Data Attestation: I personally reviewed and interpreted this ECG as follows: Interpretation: The patient had an EKG done on arrival. The patient's EKG shows a sinus rhythm heart rate of 70, QRS duration 114 ms, QTC [address] segment elevation. T waves are inverted in lead III, V1. An incomplete right bundle branch block is noted. Discharge Plan Discharge Disposition Patient Disposition: ED Admit(ED Internal Use Only) Discharge Condition Condition: Stable Discharge Order Discharge Orders: Discharge Order (Routine); Ordered 01/21/18 Ordered By: Claudia Ibarra ED Use Only Admit Order (Routine); Ordered 01/21/18 Ordered By: Elenita Barreto Discharge Details Anticipated Discharge Date: 01/21/18 Diagnosis: Chest pain, rule out acute myocardial infarction Physicians Team ED Provider: Elenita Barreto Primary Care Provider: Primary Care Faye Goldberg Attending Provider: Harry Villalobos Status ED Status: Left Department Discharge Information Discharge Date/Time: 01/21/18 04:05
[2018-01-20 23:47] LABS: Baso # (Auto) 0.1 th/mm3 (0.0-0.2); Baso % (Auto) 0.6 % (0.0-2.0); Eos # (Auto) 0.5 th/mm3 (0.0-0.4); Hematocrit 28.7 % (35.0-46.0); Hemoglobin 9.7 gm/dL (11.6-15.3); Lymph # (Auto) 1.7 th/mm3 (1.0-4.8); Lymph % (Auto) 16.3 % (9.0-44.0); Mean Corpuscular HGB Conc 33.9 % (32.0-36.0); Mean Corpuscular Hemoglobin 33.4 pg (27.0-34.0); Mean Corpuscular Volume 98.7 fL (80.0-100.0); Mean Platelet Volume 8.6 fL (7.0-11.0); Mono # (Auto) 1.3 th/mm3 (0.0-0.9); Mono % (Auto) 12.5 % (0.0-8.0); Neut # (Auto) 6.9 th/mm3 (1.8-7.7); Neut % (Auto) 65.6 % (16.0-70.0); Platelet Count 167 th/mm3 (150-450); Red Blood Count 2.91 mil/mm3 (4.00-5.30); Red Cell Distribution Width 15.1 % (11.6-17.2); White Blood Count 10.5 th/mm3 (4.0-11.0)
--- NOTE | 2018-01-20 23:57 | XR ---
EXAM DATE: 01/20/2018 11:52 PM EST AGE/SEX: 82 years / Female INDICATIONS: Hypertensive episode with headache. CLINICAL DATA: This is the patient's initial encounter. Patient reports that signs and symptoms have been present for 1 day and indicates a pain score of 0/10. MEDICAL/SURGICAL HISTORY: Hypertension. Chronic obstructive pulmonary disease. None. COMPARISON: . FINDINGS: Single AP view the chest. The lungs are clear. Cardiomediastinal silhouette within normal limits. No evidence of pleural effusion or pneumothorax. CONCLUSION: No acute cardiopulmonary disease identified. Electronically signed by: Guru Webber MD 01/20/2018 11:56 PM EST
[2018-01-20 23:59] LABS: Activated Partial Thrombo Time 28.9 sec (23.4-31.7); Prothrombin Time 10.2 sec (9.8-11.6)
[2018-01-21 00:05] LABS: Albumin 3.6 g/dL (3.4-5.0); Anion Gap 6 meq/L (5-15); Aspartate Aminotransferase 24 U/L (15-37); Blood Urea Nitrogen 13 mg/dL (7-18); Carbon Dioxide 26.9 meq/L (21.0-32.0); Chloride 96 meq/L (98-107); Glomerular Filtration Rate 69 mL/min (>89); Glucose,Random 100 mg/dL (74-106); Lipase 70 U/L (73-393); Magnesium 1.9 mg/dL (1.5-2.5); Potassium 4.4 meq/L (3.5-5.1); Sodium 129 meq/L (136-145)
[2018-01-21 00:06] LABS: Alanine Aminotransferase 23 U/L (10-53)
[2018-01-21 00:10] LABS: Alkaline Phosphatase 68 U/L (45-117); Creatine Kinase 100 U/L (26-192); Total Protein 7.1 g/dL (6.4-8.2)
[2018-01-21] MEDS ORDERED: Acetaminophen 500 MG Tablet PO PRN (01:33)
[2018-01-21 04:09] LABS: Creatine Kinase 73 U/L (26-192)
[2018-01-21 06:07] LABS: Creatine Kinase 77 U/L (26-192)
--- NOTE | 2018-01-21 07:51 | P.HPCA ---
History of Present Illness Primary Care Physician: Primary Care Physician Chief Complaint: Elevated blood pressure History of Present Illness: 82 year old female with history of hypertension presents emergency room for further evaluation over concern over elevated blood pressure. Onset last evening. States she became concerned she may have elevated blood pressure therefore began taking her blood pressure every 10 minutes. Reports blood pressure results elevated in the 200s. Denies any associated symptoms such as chest pain, shortness of breath, or headache. Follows with Dr. Bailon, last seen 2 weeks ago and reports starting doxazosin. Patient is not forth coming with presenting illness. Past cardiac testing 06/05/2017 Cardiac catheterization (Dr. Griffith) Conclusions: 1. Very mild diffuse disease, no significant stenosis. 2. Evidence of mild to moderate mitral regurgitation. Social history Known hypertension and hyperlipidemia. No known diabetes. Mild coronary artery disease identified cardiac catheterization. - Diagnosis (1) Hypertension (2) Anemia (3) Hyponatremia Review of Systems All other systems reviewed negative except as stated in HPI PMFSH - History History Provided By: Patient - Medical History Medical History: Medical History (Last Reviewed 01/20/18 @ 23:09 by Peter King RN) Anemia Arthritis Hypertension Leaky heart valve - Tobacco History Second Hand Smoke Exposure: No Tobacco Use In Past 30 Days: No Smoking Status: Former smoker Tobacco Type: Cigarettes - Alcohol History How Often Do You Have a Drink Containing Alcohol: Monthly or less - Substance Use History Substance History: No History of Abuse - Travel History Recent Travel in the [place] Within the Last 8 Weeks: No Recent Travel Out of the Country Within the Last 8 Weeks: No - Immunization History Tetanus Immunization: >5 Years Medications and Allergies Active Medications: Active Medications Acetaminophen (Tylenol) 500 mg PO Q4H PRN PRN Reason: HEADACHE Sodium Chloride (Ns Flush) 2 ml IV.FLUSH UNSCH PRN PRN Reason: FLUSH AFTER USING IV ACCESS Sodium Chloride (Ns Flush) 2 ml IV.FLUSH BID COLEEN Sodium Chloride (Ns Flush) 2 ml IV.FLUSH PRN PRN PRN Reason: FLUSH AFTER USING IV ACCESS Allergies Allergy/AdvReac Type Severity Reaction Status Date / Time diltiazem Allergy Unknown I ALMOST Verified 01/20/18 23:11 "NO HEART BEAT" Home Medications Medication Instructions Recorded Confirmed Type Iron (ferrous sulfate) 1 tab PO BID 10/12/17 01/21/18 History rosuvastatin [Crestor] 20 mg PO DAILY 10/12/17 01/21/18 History doxazosin 2 mg PO DAILY 01/20/18 01/20/18 History sodium chloride 500 mg PO BID 01/20/18 01/21/18 History apixaban 2.5 mg PO BID 01/21/18 01/21/18 History lansoprazole 30 mg PO BID 01/21/18 01/21/18 History metoprolol tartrate 25 mg PO DAILY 01/21/18 01/21/18 History Exam Vital signs: Vital Signs 01/20/18 23:05 01/20/18 23:10 01/20/18 23:39 Temperature 97.7 F Pulse Rate 75 73 73 Respiratory Rate 20 16 Blood Pressure 220/86 H 174/74 H 178/80 H Pulse Oximetry 96 95 97 01/20/18 23:40 01/21/18 00:19 01/21/18 02:04 Temperature Pulse Rate 72 73 Respiratory Rate 16 15 Blood Pressure 163/70 H Pulse Oximetry 97 94 L 97 01/21/18 04:00 01/21/18 04:05 Temperature 98.3 F Pulse Rate 63 60 Respiratory Rate 16 16 Blood Pressure 140/57 L 152/60 H Pulse Oximetry 93 L 94 L Intake & Output 01/20/18 01/21/18 01/21/18 18:59 06:59 18:59 Weight 58.06 kg Other: # Voids 1 Date of Last Bowel Movement 01/20/18 Narrative: GENERAL: Alert WN, WD, NAD, , elderly female easily awakens from sleep HEAD: NC, AT EYES: Sclera clear, conjunctiva without injection ENT: Mucous membranes pink and moist CV: RRR, 2/6 systolic murmur, no rub, gallop, or JVD. RESP: Clear lungs throughout bilateral, no crackles, wheeze, rhonchi, symmetrical chest rise, nonlabored, able to speak in full sentences ABD: Soft, NT, ND, no masses, positive bowel tones EXT: Pulses +2x4, no dependent edema MS: Normal tone x4 extremities, nontender, no obvious deformities, full range of motion NEURO: Motor strength 5/5 PSYCH: A+O x3, flat affect, appropriate speech, insight and judgment SKIN: Normal turgor, normal texture Results 01/20/18 23:35 01/20/18 23:35 Cardiac Enzymes 01/20/18 01/20/18 01/21/18 Range/Units 23:35 23:35 03:20 AST 24 (15-37) U/L Troponin I Less than 0.02 L Less than 0.02 L (0.02-0.05) ng/mL B-Natriuretic Peptide 359 H (0-100) pg/mL 01/21/18 Range/Units 05:25 AST (15-37) U/L Troponin I Less than 0.02 L (0.02-0.05) ng/mL B-Natriuretic Peptide (0-100) pg/mL Coagulation 01/20/18 01/20/18 Range/Units 23:35 23:35 PT 10.2 (9.8-11.6) sec APTT 28.9 (23.4-31.7) sec B-Natriuretic Peptide 359 H (0-100) pg/mL CBC 01/20/18 Range/Units 23:35 WBC 10.5 (4.0-11.0) th/mm3 RBC 2.91 L (4.00-5.30) mil/mm3 Hgb 9.7 L (11.6-15.3) gm/dL Hct 28.7 L (35.0-46.0) % Plt Count 167 (150-450) th/mm3 Neut # (Auto) 6.9 (1.8-7.7) th/mm3 Lymph # (Auto) 1.7 (1.0-4.8) th/mm3 Dewitt # (Auto) 1.3 H (0.0-0.9) th/mm3 Eos # (Auto) 0.5 H (0.0-0.4) th/mm3 Baso # (Auto) 0.1 (0.0-0.2) th/mm3 Comprehensive Metabolic Panel 01/20/18 Range/Units 23:35 Sodium 129 L (136-145) meq/L Potassium 4.4 (3.5-5.1) meq/L Chloride 96 L (98-107) meq/L Carbon Dioxide 26.9 (21.0-32.0) meq/L BUN 13 (7-18) mg/dL Creatinine 0.80 (0.50-1.00) mg/dL Calcium 9.0 (8.5-10.1) mg/dL AST 24 (15-37) U/L ALT 23 (10-53) U/L Alkaline Phosphatase 68 (45-117) U/L Total Protein 7.1 (6.4-8.2) g/dL Albumin 3.6 (3.4-5.0) g/dL Intake and Output 01/20/18 01/21/18 01/21/18 22:59 06:59 14:59 Other: # Voids 1 Date of Last Bowel Movement 01/20/18 Weight 58.06 kg - Imaging and Cardiology Imaging: Impressions Chest X-Ray 01/20/18 23:31 CONCLUSION: No acute cardiopulmonary disease identified. EKG interpretations - EKG EKG results cardiology: sinus rhythm (incomplete right bundle branch block), normal axis, normal ST/T Caprini VTE Risk Assessment Caprini VTE Risk Assessment: Moderate/High Risk (score >= 2) Caprini Risk Assessment Model: Point Value = 1 Point Value = 2 Point Value = 3 Point Value = 5 Age 41-60 Minor surgery BMI > 25 kg/m2 Swollen legs Varicose veins or History of unexplained or recurrent spontaneous Oral contraceptives or hormone replacement Sepsis (< 1 month) Serious lung disease, including pneumonia (< 1 month) Abnormal pulmonary function Acute myocardial infarction Congestive heart failure (< 1 month) History of inflammatory bowel disease Medical patient at bed rest Age 61-74 Arthroscopic surgery Major open surgery (> 45 min) Laparoscopic surgery (> 45 min) Malignancy Confined to bed (> 72 hours) Immobilizing plaster cast Central venous access Age >= 75 History of VTE Family history of VTE Factor V Leiden Prothrombin 43258A Lupus anticoagulant Anticardiolipin antibodies Elevated serum homocysteine Heparin-induced thrombocytopenia Other congenital or acquired thrombophilia Stroke (< 1 month) Elective arthroplasty Hip, pelvis, or leg fracture Acute spinal cord injury (< 1 month) Prophylaxis Regimen: Total Risk Factor Score Risk Level Prophylaxis Regimen 0-1 Low Early ambulation 2 Moderate Order ONE of the following: *Sequential Compression Device (SCD) *Heparin 5000 units SQ BID 3-4 Higher Order ONE of the following medications: *Heparin 5000 units SQ TID *Enoxaparin/Lovenox 40 mg SQ daily (WT < 150 kg, CrCl > 30 mL/min) *Enoxaparin/Lovenox 30 mg SQ daily (WT < 150 kg, CrCl > 10-29 mL/min) *Enoxaparin/Lovenox 30 mg SQ BID (WT < 150 kg, CrCl > 30 mL/min) AND/OR *Sequential Compression Device (SCD) 5 or more Highest Order ONE of the following medications: *Heparin 5000 units SQ TID (Preferred with Epidurals) *Enoxaparin/Lovenox 40 mg SQ daily (WT < 150 kg, CrCl > 30 mL/min) *Enoxaparin/Lovenox 30 mg SQ daily (WT < 150 kg, CrCl > 10-29 mL/min) *Enoxaparin/Lovenox 30 mg SQ BID (WT < 150 kg, CrCl > 30 mL/min) AND *Sequential Compression Device (SCD) Assessment and Plan - Assessment (1) Hypertension Code(s): I10 - Essential (primary) hypertension Status: Acute Plan: Admitted to chest pain center. Monitor on telemetry overnight. Blood pressure decreased within acceptable range. ACS ruled out with 3 sets of EKGs and cardiac enzymes. Seen and evaluated by Dr. Isac Vaca. Recent cardiac catheterization completed May of this year reviewed suggesting mild diffuse disease. No further testing. 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 Verbalized understanding and agreeable to plan of care. No changed in medications upon discharge. (2) Anemia Code(s): D64.9 - Anemia, unspecified Status: Chronic Plan: Continue ferrous sulfate upon discharge, follow up with primary care provider as previously instructed. (3) Hyponatremia Code(s): E87.1 - Hypo-osmolality and hyponatremia Status: Chronic Plan: Follow up with primary care provider as previously instructed. (1) Hypertension Qualifiers: Hypertension type: unspecified Qualified Code(s): I10 - Essential (primary) hypertension (2) Anemia Qualifiers: Anemia type: iron deficiency Iron deficiency anemia type: unspecified iron deficiency Qualified Code(s): D50.9 - Iron deficiency anemia, unspecified
--- NOTE | 2018-01-22 09:12 | ECG ---
Date Performed: 01/21/2018 Time Performed: 05:43:23 PTAGE: 82 years EKG: Sinus rhythm INCOMPLETE RIGHT BUNDLE BRANCH BLOCK NONSPECIFIC T-WAVE ABNORMALITY BORDERLINE ECG Since PREVIOUS TRACING , no significant change noted PREVIOUS TRACIN01/20/2018 23.20 DOCTOR: Odette Vyas Interpretating Date/Time 01/22/2018 09:11:47
--- NOTE | 2018-01-22 16:04 | ECG ---
Date Performed: 01/20/2018 Time Performed: 23:20:29 PTAGE: 82 years EKG: Sinus rhythm INCOMPLETE RIGHT BUNDLE BRANCH BLOCK NONSPECIFIC T-WAVE ABNORMALITY BORDERLINE ECG Since PREVIOUS TRACING , no significant change noted PREVIOUS TRACIN06/05/2017 12.04 DOCTOR: Odette Vyas Interpretating Date/Time 01/22/2018 16:03:19
== END 2018-01-21 11:47 | disposition home or self-care (01) ==
LOC: NEDA 22:58 → NEPC 22:58 → NEPFCDU 01-21 04:05
PROVIDERS: ADMIT Internal Medicine Interventional Cardiology; ATTEND Internal Medicine Interventional Cardiology